=== PATIENT | male | born 1940 | race Caucasian/White ===

== ENCOUNTER 2020-11-26 10:12 | Observation (INO) | payer OTHER, MEDICARE, MEDICAID ==
[~2020-11-26] VITALS: Ht 172.7 cm; Wt 86.7 kg
[2020-11-26 12:46] VITALS: BP 135/75
[2020-11-26 14:43] VITALS: BP 108/65
[2020-11-26] MEDS ORDERED: HYDROcodone/APAP 5/325MG 1 TAB TABLET PO PRN (15:30)
[2020-11-26 16:45] LABS: BASO # 0.1 x10^3/uL (0.0-0.2); BASO % 1 % (0-3); EOS # 0.1 x10^3/uL (0.0-0.7); EOS % 2 % (0-3); HEMATOCRIT 38.2 % (39.0-53.0); HEMOGLOBIN 12.4 g/dL (13.0-17.5); LYMPH # 1.5 x10^3/uL (1.0-4.8); LYMPH % 17 % (24-48); MEAN CORPUSCULAR HEMOGLOBIN 28 pg (25-35); MEAN CORPUSCULAR HGB CONC 33 g/dL (31-37); MEAN CORPUSCULAR VOLUME 85 fL (79-100); MONO # 0.8 x10^3/uL (0.0-1.1); MONO % 10 % (0-9); NEUT # 6.1 x10^3uL (1.8-7.7); NEUT % 71 % (31-73); PLATELET COUNT 171 x10^3/uL (140-400); RED BLOOD COUNT 4.51 x10^6/uL (4.30-5.70); RED CELL DISTRIBUTION WIDTH 17.9 % (11.5-14.5); WHITE BLOOD COUNT 8.6 x10^3/uL (4.0-11.0)
--- NOTE | 2020-11-26 16:47 | EKG ---
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
[2020-11-26 16:58] LABS: ALBUMIN 3.7 g/dL (3.4-5.0); ALBUMIN/GLOBULIN RATIO 1.3 (1.0-1.7); CALCIUM 8.7 mg/dL (8.5-10.1); CREATININE 1.3 mg/dL (0.7-1.3); GFR 52.9; MAGNESIUM 2.3 mg/dL (1.8-2.4); POTASSIUM 3.7 mmol/L (3.5-5.1); TOTAL BILIRUBIN 0.6 mg/dL (0.2-1.0); TOTAL PROTEIN 6.6 g/dL (6.4-8.2)
[2020-11-26] MEDS: metFORMIN 500 MG TABLET PO SCH (17:18)
[2020-11-26] MEDS: CARVEDILOL 6.25 MG TABLET PO SCH (17:18)
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
[2020-11-26 18:13] VITALS: BP 108/65
[2020-11-26] MEDS ORDERED: BUDESONIDE 0.5 MG/2 ML NEBU NEB SCH (20:00)
[2020-11-26] MEDS ORDERED: ATORVASTATIN CALCIUM 20 MG TABLET PO SCH (21:00)
[2020-11-26] MEDS ORDERED: TAMSULOSIN 0.4 MG CAP.ER.24H. PO SCH (21:00)
[2020-11-26] MEDS: buPROPion 75 MG TABLET PO SCH (21:25)
[2020-11-26] MEDS: GABAPENTIN 300 MG CAPSULE. PO SCH (21:26)
[2020-11-26] MEDS: AMOXICILLIN/K CLAV 875/125MG TABLET. PO SCH (21:26)
[2020-11-26] MEDS: WARFARIN 2 MG TABLET. PO SCH ×2 (21:26→21:30)
[2020-11-26 21:55] LABS: COLOR,URINE YELLOW
[2020-11-26 21:56] LABS: BACTERIA,URINE 0 /HPF (0-FEW); BILIRUBIN,URINE NEG (NEG); CLARITY,URINE CLOUDY; GLUCOSE,URINE NEG (NEG); NITRITE,URINE NEG (NEG); SQUAMOUS EPITHELIAL CELL,UR FEW /LPF; UROBILINOGEN,URINE 0.2 mg/dL (0.2 mg/dL)
[2020-11-27] MEDS ORDERED: COLESEVELAM HCL 625 MG PO SCH (08:00)
[2020-11-27] MEDS ORDERED: POTASSIUM CHLORIDE 20 MEQ TABLET.ER. PO SCH (08:00)
[2020-11-27] MEDS: CARVEDILOL 6.25 MG TABLET PO SCH (08:06)
[2020-11-27] MEDS: metFORMIN 500 MG TABLET PO SCH (08:07)
[2020-11-27] MEDS: GABAPENTIN 300 MG CAPSULE. PO SCH ×2 (08:07→12:57)
[2020-11-27] MEDS: AMOXICILLIN/K CLAV 875/125MG TABLET. PO SCH (08:07)
[2020-11-27] MEDS: buPROPion 75 MG TABLET PO SCH (08:08)
[2020-11-27 08:23] VITALS: BP 105/70
[2020-11-27] MEDS ORDERED: NICOTINE 14MG PATCH. TD SCH (09:00)
[2020-11-27] MEDS ORDERED: FUROSEMIDE 40 MG TABLET PO SCH (09:00)
[2020-11-27 10:58] VITALS: BP 108/68
[2020-11-27] MEDS ORDERED: ALBU2.5V8 INH (17:07)
[2020-11-27] MEDS ORDERED: GABA-586 PO (17:07)
[2020-11-27] MEDS ORDERED: COLE625T12 PO (17:07)
[2020-11-27] MEDS ORDERED: CARV6.25 PO (17:07)
[2020-11-27] MEDS ORDERED: LORA-52 PO (17:07)
[2020-11-27] MEDS ORDERED: FURO20TA3 PO (17:07)
[2020-11-27] MEDS ORDERED: ATOR40TA PO (17:07)
[2020-11-27] MEDS ORDERED: HYDR-2155 PO (17:07)
[2020-11-27] MEDS ORDERED: DICL20GE TP (17:07)
[2020-11-27] MEDS ORDERED: MUPI15CR8 TP (17:07)
[2020-11-27] MEDS ORDERED: BUDE10.2 IH (17:07)
[2020-11-27] MEDS ORDERED: POTA20TA4 PO (17:07)
[2020-11-27] MEDS ORDERED: WARF4TAB64 PO (17:07)
[2020-11-27] MEDS ORDERED: BUPR150T21 PO (17:07)
[2020-11-27] MEDS ORDERED: METF-658 PO (17:07)
[2020-11-27] MEDS ORDERED: TAMS0.4C97 PO (17:07)
[2020-11-27] MEDS ORDERED: NYST15PO9 TP (17:07)
[2020-11-27 20:00] LABS: FREE T4 1.07 ng/dL (0.76-1.46); THYROID STIM HORMONE (TSH) 1.217 uIU/mL (0.358-3.740)
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
[2020-11-27] MEDS ORDERED: LACTOBACILLUS RHAMNOSUS GG 1 CAPSULE. PO SCH (21:00)
== END 2020-11-27 13:00 ==
LOC: INTOOBSV 12:20 → 1 SOUTH 12:20
PROVIDERS: ADMIT Internal Medicine; ATTEND Internal Medicine
DX: F01.50 Vascular dementia, unspecified severity, without behavioral disturbance, psychotic disturbance, mood disturbance, and anxiety (principal); Z20.822 Contact with and (suspected) exposure to COVID-19; I10 Essential (primary) hypertension; E11.9 Type 2 diabetes mellitus without complications; J44.9 Chronic obstructive pulmonary disease, unspecified; I25.10 Atherosclerotic heart disease of native coronary artery without angina pectoris; I25.2 Old myocardial infarction; N40.0 Benign prostatic hyperplasia without lower urinary tract symptoms; M10.9 Gout, unspecified; E78.5 Hyperlipidemia, unspecified; Q54.9 Hypospadias, unspecified; Z86.73 Personal history of transient ischemic attack (TIA), and cerebral infarction without residual deficits; Z86.79 Personal history of other diseases of the circulatory system; Z95.1 Presence of aortocoronary bypass graft
CPT/HCPCS: 36415; 80053; 80061; 81001; 82306; 82607; 82947; 83036; 83540; 83550; 83735; 84439; 84443; 84481; 85025; 85379; 85610; 86592; 87086; 93005; G0378; G0379; U0003

== ENCOUNTER 2020-11-27 13:05 | Inpatient (IN) | payer OTHER, MEDICARE, MEDICAID ==
[~2020-11-27] VITALS: Ht 172.7 cm; Wt 87.2 kg
[2020-11-27 14:45] VITALS: BP 129/79
[2020-11-27] MEDS ORDERED: ACETAMINOPHEN 325 MG TABLET PO PRN (16:00)
[2020-11-27] MEDS ORDERED: MAG HYDROX/AL HYDROX/SIMETH 30 ML ORAL.SUSP PO PRN (16:00)
[2020-11-27] MEDS ORDERED: METHYL SALICYLATE/MENTHOL TOPICAL OINTMENT 57GM TUBE. TP PRN (16:00)
[2020-11-27] MEDS ORDERED: MAGNESIUM HYDROXIDE 2,400 MG/30 ML ORAL.SUSP. PO PRN (16:00)
[2020-11-27] MEDS: NICOTINE 14MG PATCH. TD SCH (16:30)
[2020-11-27] MEDS ORDERED: GABA-586 PO (17:07)
[2020-11-27] MEDS ORDERED: LORA-52 PO (17:07)
[2020-11-27] MEDS ORDERED: FURO20TA3 PO (17:07)
[2020-11-27] MEDS ORDERED: BUPR150T21 PO (17:07)
[2020-11-27] MEDS ORDERED: MUPI15CR8 TP (17:07)
[2020-11-27] MEDS ORDERED: ATOR40TA PO (17:07)
[2020-11-27] MEDS ORDERED: CARV6.25 PO (17:07)
[2020-11-27] MEDS ORDERED: NYST15PO9 TP (17:07)
[2020-11-27] MEDS ORDERED: POTA20TA4 PO (17:07)
[2020-11-27] MEDS ORDERED: HYDR-2155 PO (17:07)
[2020-11-27] MEDS ORDERED: ALBU2.5V8 INH (17:07)
[2020-11-27] MEDS ORDERED: WARF4TAB64 PO (17:07)
[2020-11-27] MEDS ORDERED: METF-658 PO (17:07)
[2020-11-27] MEDS ORDERED: BUDE10.2 IH (17:07)
[2020-11-27] MEDS ORDERED: COLE625T12 PO (17:07)
[2020-11-27] MEDS ORDERED: DICL20GE TP (17:07)
[2020-11-27] MEDS ORDERED: TAMS0.4C97 PO (17:07)
[2020-11-27] MEDS ORDERED: ALBUTEROL SULFATE 2.5 MG/3 ML NEBU. INH PRN (19:00)
[2020-11-27] MEDS ORDERED: BUDESONIDE 0.5 MG/2 ML NEBU NEB SCH (20:00)
[2020-11-27] MEDS ORDERED: ALBUTEROL SULFATE 2.5 MG/3 ML NEBU. NEB SCH (20:00)
[2020-11-27] MEDS ORDERED: CARVEDILOL 6.25 MG TABLET PO SCH (21:00)
[2020-11-27] MEDS: MUPIROCIN 2% TOPICAL OINTMENT 22GM TUBE. TP SCH (21:00)
[2020-11-27] MEDS: NYSTATIN TOPICAL POWDER 15GM BOTTLE. TP SCH (21:00)
[2020-11-27] MEDS ORDERED: metFORMIN XR 500 MG TAB.ER.24H PO SCH (21:00)
[2020-11-27] MEDS ORDERED: NON FORMULARY ITEM (Budesonide/Formoterol Fumarate (Symbicort 160-4.5 Mcg Inhaler) 2 PUFF) IH SCH (21:00)
[2020-11-27] MEDS: GABAPENTIN 300 MG CAPSULE. PO SCH (21:30)
[2020-11-27] MEDS: buPROPion 75 MG TABLET PO SCH (21:31)
[2020-11-27] MEDS: COLESEVELAM HCL 625 MG PO SCH (21:36)
[2020-11-27] MEDS: HYDROcodone/APAP 5/325MG 1 TAB TABLET PO PRN (21:36)
[2020-11-27] MEDS: DICLOFENAC SODIUM 1% TOPICAL GEL 100GM TUBE. TP SCH (21:37)
[2020-11-27] MEDS: ALBUTEROL SULFATE 8GM INHALER. INH PRN (21:48)
--- NOTE | 2020-11-27 22:01 | PDOC ---
Exam Note: Hero Note: Please also refer to the separate dictated note~for this date of service dictated separately.~Patient seen individually. Discussed the patient with Nursing staff reviewed the chart.~Reviewed interim history and current functioning. Reviewed vital signs,~Labs/ Radiology~and current medications noted below. Continue current treatment with the changes noted in the dictated addendum note Assessment: Vital Signs/I&O: Vital Signs Date Time Temp Pulse Resp B/P (MAP) Pulse Ox O2 Delivery O2 Flow Rate FiO2 11/27/20 21:36 97 11/27/20 21:30 76 129/79 11/27/20 14:45 97.6 20 Room Air Labs: Laboratory Tests Test 11/27/20 19:20 Glucose (Fingerstick) 178 mg/dL (70-99) H Current Medications: Meds: Current Medications Medications (Trade) Dose Ordered Sig/Payton Route PRN Reason Start Time Stop Time Status Last Admin Dose Admin Bupropion HCl (Wellbutrin) 75 mg BID PO 11/27/20 21:00 11/27/20 21:31 Carvedilol (Coreg) 6.25 mg BID PO 11/27/20 21:00 11/27/20 21:30 Colesevelam HCl (Welchol) 1,250 mg BID PO 11/27/20 21:00 11/27/20 21:36 Diclofenac Sodium (Voltaren) 20 jaswant QID TP 11/27/20 21:00 11/27/20 21:37 Gabapentin (Neurontin) 600 mg QHS PO 11/27/20 21:00 11/27/20 21:30 Acetaminophen/ Hydrocodone Bitart (Lortab 5/325) 1 tab PRN Q6HRS PRN PO PAIN 11/27/20 19:00 11/27/20 21:36 Albuterol Sulfate (Ventolin Hfa Inhaler) 1 puff PRN Q6HRS PRN INH SOA 11/27/20 19:45 11/27/20 21:48 I have reviewed the current psychotropics carefully including drug interactions. Risk benefit ratio favors no change other than as noted in my dictated progress note. Diagnosis: Problems: (1) Dementia DIANE MENDIETA MD Nov 27, 2020 22:01
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
[2020-11-28 06:24] VITALS: BP 114/67
[2020-11-28] MEDS: DICLOFENAC SODIUM 1% TOPICAL GEL 100GM TUBE. TP SCH ×4 (09:00→21:12)
[2020-11-28] MEDS: MUPIROCIN 2% TOPICAL OINTMENT 22GM TUBE. TP SCH ×3 (09:00→21:00)
[2020-11-28] MEDS ORDERED: metFORMIN XR 500 MG TAB.ER.24H PO SCH (09:00)
[2020-11-28] MEDS ORDERED: CARVEDILOL 6.25 MG TABLET PO SCH (09:00)
[2020-11-28] MEDS: NYSTATIN TOPICAL POWDER 15GM BOTTLE. TP SCH ×2 (09:00→21:00)
[2020-11-28] MEDS: NICOTINE 14MG PATCH. TD SCH (09:03)
[2020-11-28] MEDS: COLESEVELAM HCL 625 MG PO SCH ×2 (09:04→21:12)
[2020-11-28] MEDS: FUROSEMIDE 20 MG TABLET PO SCH (09:04)
[2020-11-28] MEDS: POTASSIUM CHLORIDE 20 MEQ TABLET.ER. PO SCH (09:04)
[2020-11-28] MEDS: buPROPion 75 MG TABLET PO SCH (09:06)
[2020-11-28] MEDS: TAMSULOSIN 0.4 MG CAP.ER.24H. PO SCH (09:06)
[2020-11-28] MEDS: CETIRIZINE HCL 10 MG TABLET PO SCH (09:06)
[2020-11-28] MEDS: ATORVASTATIN CALCIUM 20 MG TABLET PO SCH (09:06)
[2020-11-28] MEDS: HYDROcodone/APAP 5/325MG 1 TAB TABLET PO PRN ×2 (09:25→22:28)
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
[2020-11-28 16:04] VITALS: BP 123/75
[2020-11-28] MEDS: WARFARIN 4 MG TABLET. PO SCH (16:56)
[2020-11-28] MEDS: metFORMIN XR 500 MG TAB.ER.24H PO SCH (16:56)
[2020-11-28] MEDS: CARVEDILOL 6.25 MG TABLET PO SCH (16:57)
[2020-11-28] MEDS: GABAPENTIN 300 MG CAPSULE. PO SCH (21:12)
[2020-11-28] MEDS: DIVALPROEX ER 500 MG TAB.ER.24H PO SCH (21:12)
--- NOTE | 2020-11-28 22:14 | PDOC ---
Exam Note: Hero Note: Please also refer to the separate dictated note~for this date of service dictated separately.~Patient seen individually. Discussed the patient with Nursing staff reviewed the chart.~Reviewed interim history and current functioning. Reviewed vital signs,~Labs/ Radiology~and current medications noted below. Continue current treatment with the changes noted in the dictated addendum note Assessment: Vital Signs/I&O: Vital Signs Date Time Temp Pulse Resp B/P (MAP) Pulse Ox O2 Delivery O2 Flow Rate FiO2 11/28/20 16:57 63 123/75 11/28/20 16:04 97.4 16 98 Room Air I & O 11/27/20 11/27/20 11/28/20 15:00 23:00 07:00 Intake Total 600 ml Balance 600 ml Labs: Laboratory Tests Test 11/28/20 06:52 11/28/20 07:20 Prothrombin Time 10.5 SEC (9.4-11.4) Prothrombin Time INR 1.0 (0.9-1.1) Glucose (Fingerstick) 157 mg/dL (70-99) H Current Medications: Meds: Current Medications Medications (Trade) Dose Ordered Sig/Payton Route PRN Reason Start Time Stop Time Status Last Admin Dose Admin Furosemide (Lasix) 20 mg DAILY PO 11/28/20 09:00 11/28/20 09:04 Potassium Chloride (Klor-Con) 20 meq DAILY PO 11/28/20 09:00 11/28/20 09:04 Tamsulosin HCl (Flomax) 0.4 mg DAILY PO 11/28/20 09:00 11/28/20 09:06 Warfarin Sodium (Coumadin) 4 mg DAILY16 PO 11/28/20 16:00 11/28/20 16:56 Atorvastatin Calcium (Lipitor) 40 mg DAILY PO 11/28/20 09:00 11/28/20 09:06 Cetirizine HCl (ZyrTEC) 10 mg DAILY PO 11/28/20 09:00 11/28/20 09:06 Metformin HCl (Glucophage Xr) 500 mg BID PO 11/28/20 09:00 11/28/20 10:51 DC 11/28/20 09:06 Carvedilol (Coreg) 6.25 mg BID PO 11/28/20 09:00 11/28/20 10:51 DC 11/28/20 09:06 Carvedilol (Coreg) 6.25 mg 0800,1700 PO 11/28/20 17:00 11/28/20 16:57 Metformin HCl (Glucophage Xr) 500 mg 0800,1700 PO 11/28/20 17:00 11/28/20 16:56 Divalproex Sodium (Depakote Er) 500 mg QHS PO 11/28/20 21:00 11/28/20 21:12 I have reviewed the current psychotropics carefully including drug interactions. Risk benefit ratio favors no change other than as noted in my dictated progress note. Diagnosis: Problems: (1) Bipolar disorder, unspecified (2) Impulse control disorder, unspecified (3) Anxiety disorder, unspecified DIANE MENDIETA MD Nov 28, 2020 22:14
[2020-11-28 22:23] LABS: ALBUMIN 3.3 g/dL (3.4-5.0); ALBUMIN/GLOBULIN RATIO 1.1 (1.0-1.7); CREATININE 0.9 mg/dL (0.7-1.3); GFR 80.8; POTASSIUM 3.8 mmol/L (3.5-5.1); TOTAL BILIRUBIN 0.3 mg/dL (0.2-1.0); TOTAL PROTEIN 6.2 g/dL (6.4-8.2)
[2020-11-29 06:25] VITALS: BP 112/71
[2020-11-29] MEDS: NICOTINE 14MG PATCH. TD SCH (08:22)
[2020-11-29] MEDS: CARVEDILOL 6.25 MG TABLET PO SCH ×2 (08:23→17:00)
[2020-11-29] MEDS: TAMSULOSIN 0.4 MG CAP.ER.24H. PO SCH (08:23)
[2020-11-29] MEDS: metFORMIN XR 500 MG TAB.ER.24H PO SCH ×2 (08:24→17:00)
[2020-11-29] MEDS: CETIRIZINE HCL 10 MG TABLET PO SCH (08:24)
[2020-11-29] MEDS: ATORVASTATIN CALCIUM 20 MG TABLET PO SCH (08:24)
[2020-11-29] MEDS: POTASSIUM CHLORIDE 20 MEQ TABLET.ER. PO SCH (08:24)
[2020-11-29] MEDS: FUROSEMIDE 20 MG TABLET PO SCH (08:24)
[2020-11-29] MEDS: SERTRALINE 50 MG TABLET. PO SCH (08:28)
[2020-11-29] MEDS: COLESEVELAM HCL 625 MG PO SCH ×2 (08:28→20:36)
[2020-11-29] MEDS: medroxyPROGESTERone 5 MG TABLET PO SCH (08:29)
[2020-11-29] MEDS: NYSTATIN TOPICAL POWDER 15GM BOTTLE. TP SCH ×2 (08:48→20:37)
[2020-11-29] MEDS: DICLOFENAC SODIUM 1% TOPICAL GEL 100GM TUBE. TP SCH ×4 (09:00→20:37)
[2020-11-29] MEDS: MUPIROCIN 2% TOPICAL OINTMENT 22GM TUBE. TP SCH ×3 (09:00→20:37)
[2020-11-29] MEDS: WARFARIN 4 MG TABLET. PO SCH (15:10)
[2020-11-29] MEDS ORDERED: CALCIUM CARBONATE 500 MG TAB.CHEW PO PRN (15:15)
[2020-11-29 15:23] VITALS: BP 125/85
[2020-11-29] MEDS: DIVALPROEX ER 500 MG TAB.ER.24H PO SCH (20:36)
[2020-11-29] MEDS: HYDROcodone/APAP 5/325MG 1 TAB TABLET PO PRN (20:36)
[2020-11-29] MEDS: rOPINIRole 0.25 MG TABLET. PO SCH (20:36)
[2020-11-29] MEDS: GABAPENTIN 300 MG CAPSULE. PO SCH (20:36)
[2020-11-29] MEDS: ALBUTEROL SULFATE 8GM INHALER. INH PRN (21:09)
--- NOTE | 2020-11-29 22:28 | PDOC ---
Exam Note: Hero Note: Please also refer to the separate dictated note~for this date of service dictated separately. Discussed the patient with Nursing staff reviewed the chart.~Reviewed interim history and current functioning. Reviewed vital signs,~Labs/ Radiology~and current medications noted below. Continue current treatment with the changes noted in the dictated addendum note Assessment: Vital Signs/I&O: Vital Signs Date Time Temp Pulse Resp B/P (MAP) Pulse Ox O2 Delivery O2 Flow Rate FiO2 11/29/20 21:06 98 11/29/20 17:00 74 125/85 11/29/20 15:23 97.4 18 Room Air I & O 11/28/20 11/28/20 11/29/20 15:00 23:00 07:00 Intake Total 840 ml 720 ml Balance 840 ml 720 ml Labs: Laboratory Tests Test 11/29/20 07:00 11/29/20 08:06 Prothrombin Time 10.7 SEC (9.4-11.4) Prothrombin Time INR 1.0 (0.9-1.1) Glucose (Fingerstick) 124 mg/dL (70-99) H Current Medications: Meds: Laboratory Tests Test 11/29/20 07:00 11/29/20 08:06 Prothrombin Time 10.7 SEC Prothromb Time International Ratio 1.0 Glucose (Fingerstick) 124 mg/dL Current Medications Medications (Trade) Dose Ordered Sig/Payton Route PRN Reason Start Time Stop Time Status Last Admin Dose Admin Acetaminophen (Tylenol) 650 mg PRN Q6HRS PRN PO MILD PAIN / TEMP > 100.3'F 11/27/20 16:00 Multi-Ingredient Ointment (Analgesic [place]) 1 jaswant PRN QID PRN TP MUSCLE PAIN 11/27/20 16:00 Al Hydroxide/Mg Hydroxide (Mylanta Plus Xs) 15 ml PRN AFTMEALHC PRN PO DYSPEPSIA 11/27/20 16:00 11/29/20 15:10 Magnesium Hydroxide (Milk Of Magnesia) 2,400 mg PRN QHS PRN PO CONSTIPATION 11/27/20 16:00 Nicotine (Nicoderm Cq 14mg Patch) 1 patch DAILY TD 11/27/20 16:30 11/29/20 08:22 Albuterol Sulfate (Ventolin) 2.5 mg PRN Q4HRS PRN INH SHORTNESS OF BREATH 11/27/20 19:00 11/27/20 19:40 DC Bupropion HCl (Wellbutrin) 75 mg BID PO 11/27/20 21:00 11/28/20 13:37 DC 11/28/20 09:06 Carvedilol (Coreg) 6.25 mg BID PO 11/27/20 21:00 11/28/20 08:04 DC 11/27/20 21:30 Colesevelam HCl (Welchol) 1,250 mg BID PO 11/27/20 21:00 11/29/20 20:36 Diclofenac Sodium (Voltaren) 20 jaswant QID TP 11/27/20 21:00 11/29/20 20:37 Furosemide (Lasix) 20 mg DAILY PO 11/28/20 09:00 11/29/20 08:24 Gabapentin (Neurontin) 600 mg QHS PO 11/27/20 21:00 11/29/20 20:36 Acetaminophen/ Hydrocodone Bitart (Lortab 5/325) 1 tab PRN Q6HRS PRN PO PAIN 11/27/20 19:00 11/29/20 20:36 Metformin HCl (Glucophage Xr) 500 mg BID PO 11/27/20 21:00 11/28/20 08:01 DC Nystatin (Nystop) 15 jaswant BID TP 11/27/20 21:00 11/29/20 08:48 Potassium Chloride (Klor-Con) 20 meq DAILY PO 11/28/20 09:00 11/29/20 08:24 Tamsulosin HCl (Flomax) 0.4 mg DAILY PO 11/28/20 09:00 11/29/20 08:23 Warfarin Sodium (Coumadin) 4 mg DAILY16 PO 11/28/20 16:00 11/29/20 15:10 Atorvastatin Calcium (Lipitor) 40 mg DAILY PO 11/28/20 09:00 11/29/20 08:24 Non-Formulary Medication (Budesonide/ Formoterol Fumarate (Symbicort 160-4.5 Mcg Inhaler)) 2 puff BID IH 11/27/20 21:00 11/27/20 19:39 DC Cetirizine HCl (ZyrTEC) 10 mg DAILY PO 11/28/20 09:00 11/29/20 08:24 Mupirocin (Bactroban) 1 jaswant TID TP 11/27/20 21:00 11/28/20 09:00 Albuterol Sulfate (Ventolin) 2.5 mg RTQID NEB 11/27/20 20:00 11/27/20 19:39 DC Budesonide (Pulmicort) 0.5 mg RTBID NEB 11/27/20 20:00 11/27/20 19:39 DC Albuterol Sulfate (Ventolin Hfa Inhaler) 1 puff PRN Q6HRS PRN INH SOA 11/27/20 19:45 11/29/20 21:09 Metformin HCl (Glucophage Xr) 500 mg BID PO 11/28/20 09:00 11/28/20 10:51 DC 11/28/20 09:06 Carvedilol (Coreg) 6.25 mg BID PO 11/28/20 09:00 11/28/20 10:51 DC 11/28/20 09:06 Carvedilol (Coreg) 6.25 mg 0800,1700 PO 11/28/20 17:00 11/29/20 17:00 Metformin HCl (Glucophage Xr) 500 mg 0800,1700 PO 11/28/20 17:00 11/29/20 17:00 Sertraline HCl (Zoloft) 50 mg DAILY PO 11/29/20 09:00 11/29/20 08:28 Divalproex Sodium (Depakote Er) 500 mg QHS PO 11/28/20 21:00 11/29/20 20:36 Medroxyprogesterone Acetate (Provera) 5 mg DAILY PO 11/29/20 09:00 11/29/20 08:29 Warfarin Sodium (Coumadin Per Pharmacy) 1 each PRN DAILY PRN MC SEE COMMENTS 11/29/20 13:45 Calcium Carbonate/ Glycine (Tums) 500 mg PRN AFTMEALHC PRN PO INDIGESTION 11/29/20 15:15 11/29/20 18:00 Pantoprazole Sodium (Protonix) 40 mg DAILYAC PO 11/30/20 06:00 Ropinirole HCl (Requip) 0.25 mg HS PO 11/29/20 21:00 11/29/20 20:36 Current Medications Medications (Trade) Dose Ordered Sig/Payton Route PRN Reason Start Time Stop Time Status Last Admin Dose Admin Sertraline HCl (Zoloft) 50 mg DAILY PO 11/29/20 09:00 11/29/20 08:28 Medroxyprogesterone Acetate (Provera) 5 mg DAILY PO 11/29/20 09:00 11/29/20 08:29 Calcium Carbonate/ Glycine (Tums) 500 mg PRN AFTMEALHC PRN PO INDIGESTION 11/29/20 15:15 11/29/20 18:00 Ropinirole HCl (Requip) 0.25 mg HS PO 11/29/20 21:00 11/29/20 20:36 I have reviewed the current psychotropics carefully including drug interactions. Risk benefit ratio favors no change other than as noted in my dictated progress note. 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
[2020-11-30] MEDS ORDERED: PANTOPRAZOLE 40 MG TABLET. PO SCH (06:00)
[2020-11-30 06:07] VITALS: BP 100/56
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
[2020-11-30] MEDS: COLESEVELAM HCL 625 MG PO SCH ×2 (08:25→20:45)
[2020-11-30] MEDS: metFORMIN XR 500 MG TAB.ER.24H PO SCH ×2 (08:25→17:09)
[2020-11-30] MEDS: CARVEDILOL 6.25 MG TABLET PO SCH ×2 (08:25→17:09)
[2020-11-30] MEDS: PANTOPRAZOLE 40 MG TABLET. PO SCH (08:25)
[2020-11-30] MEDS: SERTRALINE 50 MG TABLET. PO SCH (08:26)
[2020-11-30] MEDS: CETIRIZINE HCL 10 MG TABLET PO SCH (08:26)
[2020-11-30] MEDS: medroxyPROGESTERone 5 MG TABLET PO SCH (08:26)
[2020-11-30] MEDS: ATORVASTATIN CALCIUM 20 MG TABLET PO SCH (08:26)
[2020-11-30] MEDS: POTASSIUM CHLORIDE 20 MEQ TABLET.ER. PO SCH (08:26)
[2020-11-30] MEDS: FUROSEMIDE 20 MG TABLET PO SCH (08:26)
[2020-11-30] MEDS: TAMSULOSIN 0.4 MG CAP.ER.24H. PO SCH (08:26)
[2020-11-30] MEDS: NICOTINE 14MG PATCH. TD SCH (08:27)
[2020-11-30] MEDS: NYSTATIN TOPICAL POWDER 15GM BOTTLE. TP SCH ×2 (09:00→20:58)
[2020-11-30] MEDS: MUPIROCIN 2% TOPICAL OINTMENT 22GM TUBE. TP SCH ×3 (09:28→20:58)
[2020-11-30] MEDS: DICLOFENAC SODIUM 1% TOPICAL GEL 100GM TUBE. TP SCH ×4 (09:29→20:58)
[2020-11-30 15:44] VITALS: BP 128/76
[2020-11-30] MEDS: WARFARIN 4 MG TABLET. PO SCH (17:09)
[2020-11-30] MEDS: HYDROcodone/APAP 5/325MG 1 TAB TABLET PO PRN (20:45)
[2020-11-30] MEDS: GABAPENTIN 300 MG CAPSULE. PO SCH (20:45)
[2020-11-30] MEDS: rOPINIRole 0.25 MG TABLET. PO SCH (20:45)
[2020-11-30] MEDS: DIVALPROEX ER 500 MG TAB.ER.24H PO SCH (20:45)
[2020-12-01 06:17] VITALS: BP 116/72
[2020-12-01] MEDS: medroxyPROGESTERone 5 MG TABLET PO SCH (08:00)
[2020-12-01] MEDS: NICOTINE 14MG PATCH. TD SCH (08:00)
[2020-12-01] MEDS: COLESEVELAM HCL 625 MG PO SCH ×2 (08:00→20:07)
[2020-12-01] MEDS: ATORVASTATIN CALCIUM 20 MG TABLET PO SCH (08:00)
[2020-12-01] MEDS: POTASSIUM CHLORIDE 20 MEQ TABLET.ER. PO SCH (08:00)
[2020-12-01] MEDS: CETIRIZINE HCL 10 MG TABLET PO SCH (08:00)
[2020-12-01] MEDS: PANTOPRAZOLE 40 MG TABLET. PO SCH (08:01)
[2020-12-01] MEDS: FUROSEMIDE 20 MG TABLET PO SCH (08:01)
[2020-12-01] MEDS: SERTRALINE 50 MG TABLET. PO SCH (08:01)
[2020-12-01] MEDS: CARVEDILOL 6.25 MG TABLET PO SCH ×2 (08:01→17:23)
[2020-12-01] MEDS: TAMSULOSIN 0.4 MG CAP.ER.24H. PO SCH (08:01)
[2020-12-01] MEDS: metFORMIN XR 500 MG TAB.ER.24H PO SCH ×2 (08:01→17:23)
[2020-12-01 08:16] LABS: BASO % 1 % (0-3); EOS # 0.1 x10^3/uL (0.0-0.7); EOS % 2 % (0-3); HEMATOCRIT 35.5 % (39.0-53.0); HEMOGLOBIN 11.3 g/dL (13.0-17.5); LYMPH # 1.4 x10^3/uL (1.0-4.8); LYMPH % 24 % (24-48); MEAN CORPUSCULAR HEMOGLOBIN 27 pg (25-35); MEAN CORPUSCULAR HGB CONC 32 g/dL (31-37); MEAN CORPUSCULAR VOLUME 84 fL (79-100); MONO # 0.7 x10^3/uL (0.0-1.1); MONO % 12 % (0-9); NEUT # 3.7 x10^3uL (1.8-7.7); NEUT % 62 % (31-73); PLATELET COUNT 140 x10^3/uL (140-400); RED BLOOD COUNT 4.21 x10^6/uL (4.30-5.70); RED CELL DISTRIBUTION WIDTH 17.6 % (11.5-14.5)
[2020-12-01 08:49] LABS: VAL ACID 36 mcg/mL (50-100)
[2020-12-01] MEDS: MUPIROCIN 2% TOPICAL OINTMENT 22GM TUBE. TP SCH ×3 (09:22→20:06)
[2020-12-01] MEDS: DICLOFENAC SODIUM 1% TOPICAL GEL 100GM TUBE. TP SCH ×4 (09:22→20:06)
[2020-12-01] MEDS: NYSTATIN TOPICAL POWDER 15GM BOTTLE. TP SCH ×2 (09:22→20:07)
--- NOTE | 2020-12-01 09:45 | PDOC ---
Exam Note: Hero Note: Late entry for 11/30/2020. Please also refer to the separate dictated note~for this date of service dictated separately.~Patient seen individually. Discussed the patient with Nursing staff reviewed the chart.~Reviewed interim history and current functioning. Reviewed vital signs,~Labs/ Radiology~and current medic ations noted below. Continue current treatment with the changes noted in the dictated addendum note Assessment: Vital Signs/I&O: Vital Signs Date Time Temp Pulse Resp B/P (MAP) Pulse Ox O2 Delivery O2 Flow Rate FiO2 12/01/20 08:01 84 116/72 12/01/20 06:17 97.0 20 96 Room Air 11/30/20 06:07 2.0 I & O 11/30/20 11/30/20 12/01/20 15:00 23:00 07:00 Intake Total 1320 ml 120 ml Balance 1320 ml 120 ml Labs: Laboratory Tests Test 12/01/20 07:23 12/01/20 07:54 Glucose (Fingerstick) 123 mg/dL (70-99) H White Blood Count 6.0 x10^3/uL (4.0-11.0) Red Blood Count 4.21 x10^6/uL (4.30-5.70) L Hemoglobin 11.3 g/dL (13.0-17.5) L Hematocrit 35.5 % (39.0-53.0) L Mean Corpuscular Volume 84 fL (79-100) Mean Corpuscular Hemoglobin 27 pg (25-35) Mean Corpuscular Hemoglobin Concent 32 g/dL (31-37) Red Cell Distribution Width 17.6 % (11.5-14.5) H Platelet Count 140 x10^3/uL (140-400) Neutrophils (%) (Auto) 62 % (31-73) Lymphocytes (%) (Auto) 24 % (24-48) Monocytes (%) (Auto) 12 % (0-9) H Eosinophils (%) (Auto) 2 % (0-3) Basophils (%) (Auto) 1 % (0-3) Neutrophils # (Auto) 3.7 x10^3uL (1.8-7.7) Lymphocytes # (Auto) 1.4 x10^3/uL (1.0-4.8) Monocytes # (Auto) 0.7 x10^3/uL (0.0-1.1) Eosinophils # (Auto) 0.1 x10^3/uL (0.0-0.7) Basophils # (Auto) 0.0 x10^3/uL (0.0-0.2) Prothrombin Time 16.4 SEC (9.4-11.4) H Prothrombin Time INR 1.6 (0.9-1.1) H Valproic Acid Level 36 mcg/mL (50-100) L Valproic Acid Last Dose Date 11/30/20 Valproic Acid Last Dose Time 2100 Current Medications: Meds: Laboratory Tests Test 12/01/20 07:23 12/01/20 07:54 Glucose (Fingerstick) 123 mg/dL White Blood Count 6.0 x10^3/uL Red Blood Count 4.21 x10^6/uL Hemoglobin 11.3 g/dL Hematocrit 35.5 % Mean Corpuscular Volume 84 fL Mean Corpuscular Hemoglobin 27 pg Mean Corpuscular Hemoglobin Concent 32 g/dL Red Cell Distribution Width 17.6 % Platelet Count 140 x10^3/uL Neutrophils (%) (Auto) 62 % Lymphocytes (%) (Auto) 24 % Monocytes (%) (Auto) 12 % Eosinophils (%) (Auto) 2 % Basophils (%) (Auto) 1 % Neutrophils # (Auto) 3.7 x10^3uL Lymphocytes # (Auto) 1.4 x10^3/uL Monocytes # (Auto) 0.7 x10^3/uL Eosinophils # (Auto) 0.1 x10^3/uL Basophils # (Auto) 0.0 x10^3/uL Prothrombin Time 16.4 SEC Prothromb Time International Ratio 1.6 Valproic Acid (Depakene) Level 36 mcg/mL Valproic Acid Last Dose Date 11/30/20 Valproic Acid Last Dose Time 2100 Current Medications Medications (Trade) Dose Ordered Sig/Payton Route PRN Reason Start Time Stop Time Status Last Admin Dose Admin Acetaminophen (Tylenol) 650 mg PRN Q6HRS PRN PO MILD PAIN / TEMP > 100.3'F 11/27/20 16:00 Multi-Ingredient Ointment (Analgesic [place]) 1 jaswant PRN QID PRN TP MUSCLE PAIN 11/27/20 16:00 Al Hydroxide/Mg Hydroxide (Mylanta Plus Xs) 15 ml PRN AFTMEALHC PRN PO DYSPEPSIA 11/27/20 16:00 11/29/20 15:10 Magnesium Hydroxide (Milk Of Magnesia) 2,400 mg PRN QHS PRN PO CONSTIPATION 11/27/20 16:00 Nicotine (Nicoderm Cq 14mg Patch) 1 patch DAILY TD 11/27/20 16:30 12/01/20 08:00 Albuterol Sulfate (Ventolin) 2.5 mg PRN Q4HRS PRN INH SHORTNESS OF BREATH 11/27/20 19:00 11/27/20 19:40 DC Bupropion HCl (Wellbutrin) 75 mg BID PO 11/27/20 21:00 11/28/20 13:37 DC 11/28/20 09:06 Carvedilol (Coreg) 6.25 mg BID PO 11/27/20 21:00 11/28/20 08:04 DC 11/27/20 21:30 Colesevelam HCl (Welchol) 1,250 mg BID PO 11/27/20 21:00 12/01/20 08:00 Diclofenac Sodium (Voltaren) 20 jaswant QID TP 11/27/20 21:00 11/30/20 13:35 DC 11/30/20 09:29 Furosemide (Lasix) 20 mg DAILY PO 11/28/20 09:00 12/01/20 08:01 Gabapentin (Neurontin) 600 mg QHS PO 11/27/20 21:00 11/30/20 20:45 Acetaminophen/ Hydrocodone Bitart (Lortab 5/325) 1 tab PRN Q6HRS PRN PO PAIN 11/27/20 19:00 11/30/20 20:45 Metformin HCl (Glucophage Xr) 500 mg BID PO 11/27/20 21:00 11/28/20 08:01 DC Nystatin (Nystop) 15 jaswant BID TP 11/27/20 21:00 12/01/20 09:22 Potassium Chloride (Klor-Con) 20 meq DAILY PO 11/28/20 09:00 12/01/20 08:00 Tamsulosin HCl (Flomax) 0.4 mg DAILY PO 11/28/20 09:00 12/01/20 08:01 Warfarin Sodium (Coumadin) 4 mg DAILY16 PO 11/28/20 16:00 11/30/20 17:09 Atorvastatin Calcium (Lipitor) 40 mg DAILY PO 11/28/20 09:00 12/01/20 08:00 Non-Formulary Medication (Budesonide/ Formoterol Fumarate (Symbicort 160-4.5 Mcg Inhaler)) 2 puff BID IH 11/27/20 21:00 11/27/20 19:39 DC Cetirizine HCl (ZyrTEC) 10 mg DAILY PO 11/28/20 09:00 12/01/20 08:00 Mupirocin (Bactroban) 1 jaswant TID TP 11/27/20 21:00 12/01/20 09:22 Albuterol Sulfate (Ventolin) 2.5 mg RTQID NEB 11/27/20 20:00 11/27/20 19:39 DC Budesonide (Pulmicort) 0.5 mg RTBID NEB 11/27/20 20:00 11/27/20 19:39 DC Albuterol Sulfate (Ventolin Hfa Inhaler) 1 puff PRN Q6HRS PRN INH SOA 11/27/20 19:45 11/29/20 21:09 Metformin HCl (Glucophage Xr) 500 mg BID PO 11/28/20 09:00 11/28/20 10:51 DC 11/28/20 09:06 Carvedilol (Coreg) 6.25 mg BID PO 11/28/20 09:00 11/28/20 10:51 DC 11/28/20 09:06 Carvedilol (Coreg) 6.25 mg 0800,1700 PO 11/28/20 17:00 12/01/20 08:01 Metformin HCl (Glucophage Xr) 500 mg 0800,1700 PO 11/28/20 17:00 12/01/20 08:01 Sertraline HCl (Zoloft) 50 mg DAILY PO 11/29/20 09:00 12/01/20 08:01 Divalproex Sodium (Depakote Er) 500 mg QHS PO 11/28/20 21:00 11/30/20 20:45 Medroxyprogesterone Acetate (Provera) 5 mg DAILY PO 11/29/20 09:00 12/01/20 08:00 Warfarin Sodium (Coumadin Per Pharmacy) 1 each PRN DAILY PRN MC SEE COMMENTS 11/29/20 13:45 Calcium Carbonate/ Glycine (Tums) 500 mg PRN AFTMEALHC PRN PO INDIGESTION 11/29/20 15:15 11/29/20 18:00 Pantoprazole Sodium (Protonix) 40 mg DAILYAC PO 11/30/20 06:00 11/30/20 06:15 DC Ropinirole HCl (Requip) 0.25 mg HS PO 11/29/20 21:00 11/30/20 20:45 Pantoprazole Sodium (Protonix) 40 mg DAILYWBKFT PO 11/30/20 08:00 12/01/20 08:01 Diclofenac Sodium (Voltaren) 2 jaswant QID TP 11/30/20 13:45 12/01/20 09:22 Current Medications Medications (Trade) Dose Ordered Sig/Payton Route PRN Reason Start Time Stop Time Status Last Admin Dose Admin Diclofenac Sodium (Voltaren) 2 jaswant QID TP 11/30/20 13:45 12/01/20 09:22 I have reviewed the current psychotropics carefully including drug interactions. Risk benefit ratio favors no change other than as noted in my dictated progress note. 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
[2020-12-01 15:43] VITALS: BP 119/94
[2020-12-01] MEDS: DIVALPROEX ER 500 MG TAB.ER.24H PO SCH (20:07)
[2020-12-01] MEDS: rOPINIRole 0.25 MG TABLET. PO SCH (20:07)
[2020-12-01] MEDS: GABAPENTIN 300 MG CAPSULE. PO SCH (20:08)
[2020-12-01] MEDS: ALBUTEROL SULFATE 8GM INHALER. INH PRN (20:23)
--- NOTE | 2020-12-01 22:08 | PDOC ---
Exam Note: Hero Note: Please also refer to the separate dictated note~for this date of service dictated separately.~Patient seen individually. Discussed the patient with Nursing staff reviewed the chart.~Reviewed interim history and current functioning. Reviewed vital signs,~Labs/ Radiology~and current medications noted below. Continue current treatment with the changes noted in the dictated addendum note Assessment: Vital Signs/I&O: Vital Signs Date Time Temp Pulse Resp B/P (MAP) Pulse Ox O2 Delivery O2 Flow Rate FiO2 12/01/20 17:23 71 119/94 12/01/20 15:43 97.3 16 98 12/01/20 06:17 Room Air 11/30/20 06:07 2.0 I & O 11/30/20 11/30/20 12/01/20 15:00 23:00 07:00 Intake Total 1320 ml 120 ml Balance 1320 ml 120 ml Labs: Laboratory Tests Test 12/01/20 07:23 12/01/20 07:54 Glucose (Fingerstick) 123 mg/dL (70-99) H White Blood Count 6.0 x10^3/uL (4.0-11.0) Red Blood Count 4.21 x10^6/uL (4.30-5.70) L Hemoglobin 11.3 g/dL (13.0-17.5) L Hematocrit 35.5 % (39.0-53.0) L Mean Corpuscular Volume 84 fL (79-100) Mean Corpuscular Hemoglobin 27 pg (25-35) Mean Corpuscular Hemoglobin Concent 32 g/dL (31-37) Red Cell Distribution Width 17.6 % (11.5-14.5) H Platelet Count 140 x10^3/uL (140-400) Neutrophils (%) (Auto) 62 % (31-73) Lymphocytes (%) (Auto) 24 % (24-48) Monocytes (%) (Auto) 12 % (0-9) H Eosinophils (%) (Auto) 2 % (0-3) Basophils (%) (Auto) 1 % (0-3) Neutrophils # (Auto) 3.7 x10^3uL (1.8-7.7) Lymphocytes # (Auto) 1.4 x10^3/uL (1.0-4.8) Monocytes # (Auto) 0.7 x10^3/uL (0.0-1.1) Eosinophils # (Auto) 0.1 x10^3/uL (0.0-0.7) Basophils # (Auto) 0.0 x10^3/uL (0.0-0.2) Prothrombin Time 16.4 SEC (9.4-11.4) H Prothrombin Time INR 1.6 (0.9-1.1) H Valproic Acid Level 36 mcg/mL (50-100) L Valproic Acid Last Dose Date 11/30/20 Valproic Acid Last Dose Time 2100 Current Medications: Meds: Laboratory Tests Test 12/01/20 07:23 12/01/20 07:54 Glucose (Fingerstick) 123 mg/dL White Blood Count 6.0 x10^3/uL Red Blood Count 4.21 x10^6/uL Hemoglobin 11.3 g/dL Hematocrit 35.5 % Mean Corpuscular Volume 84 fL Mean Corpuscular Hemoglobin 27 pg Mean Corpuscular Hemoglobin Concent 32 g/dL Red Cell Distribution Width 17.6 % Platelet Count 140 x10^3/uL Neutrophils (%) (Auto) 62 % Lymphocytes (%) (Auto) 24 % Monocytes (%) (Auto) 12 % Eosinophils (%) (Auto) 2 % Basophils (%) (Auto) 1 % Neutrophils # (Auto) 3.7 x10^3uL Lymphocytes # (Auto) 1.4 x10^3/uL Monocytes # (Auto) 0.7 x10^3/uL Eosinophils # (Auto) 0.1 x10^3/uL Basophils # (Auto) 0.0 x10^3/uL Prothrombin Time 16.4 SEC Prothromb Time International Ratio 1.6 Valproic Acid (Depakene) Level 36 mcg/mL Valproic Acid Last Dose Date 11/30/20 Valproic Acid Last Dose Time 2100 Current Medications Medications (Trade) Dose Ordered Sig/Payton Route PRN Reason Start Time Stop Time Status Last Admin Dose Admin Acetaminophen (Tylenol) 650 mg PRN Q6HRS PRN PO MILD PAIN / TEMP > 100.3'F 11/27/20 16:00 Multi-Ingredient Ointment (Analgesic [place]) 1 jaswant PRN QID PRN TP MUSCLE PAIN 11/27/20 16:00 Al Hydroxide/Mg Hydroxide (Mylanta Plus Xs) 15 ml PRN AFTMEALHC PRN PO DYSPEPSIA 11/27/20 16:00 11/29/20 15:10 Magnesium Hydroxide (Milk Of Magnesia) 2,400 mg PRN QHS PRN PO CONSTIPATION 11/27/20 16:00 Nicotine (Nicoderm Cq 14mg Patch) 1 patch DAILY TD 11/27/20 16:30 12/01/20 08:00 Albuterol Sulfate (Ventolin) 2.5 mg PRN Q4HRS PRN INH SHORTNESS OF BREATH 11/27/20 19:00 11/27/20 19:40 DC Bupropion HCl (Wellbutrin) 75 mg BID PO 11/27/20 21:00 11/28/20 13:37 DC 11/28/20 09:06 Carvedilol (Coreg) 6.25 mg BID PO 11/27/20 21:00 11/28/20 08:04 DC 11/27/20 21:30 Colesevelam HCl (Welchol) 1,250 mg BID PO 11/27/20 21:00 12/01/20 20:07 Diclofenac Sodium (Voltaren) 20 jaswant QID TP 11/27/20 21:00 11/30/20 13:35 DC 11/30/20 09:29 Furosemide (Lasix) 20 mg DAILY PO 11/28/20 09:00 12/01/20 08:01 Gabapentin (Neurontin) 600 mg QHS PO 11/27/20 21:00 12/01/20 20:08 Acetaminophen/ Hydrocodone Bitart (Lortab 5/325) 1 tab PRN Q6HRS PRN PO PAIN 11/27/20 19:00 11/30/20 20:45 Metformin HCl (Glucophage Xr) 500 mg BID PO 11/27/20 21:00 11/28/20 08:01 DC Nystatin (Nystop) 15 jaswant BID TP 11/27/20 21:00 12/01/20 10:34 DC 12/01/20 09:22 Potassium Chloride (Klor-Con) 20 meq DAILY PO 11/28/20 09:00 12/01/20 08:00 Tamsulosin HCl (Flomax) 0.4 mg DAILY PO 11/28/20 09:00 12/01/20 08:01 Warfarin Sodium (Coumadin) 4 mg DAILY16 PO 11/28/20 16:00 12/01/20 10:34 DC 11/30/20 17:09 Atorvastatin Calcium (Lipitor) 40 mg DAILY PO 11/28/20 09:00 12/01/20 08:00 Non-Formulary Medication (Budesonide/ Formoterol Fumarate (Symbicort 160-4.5 Mcg Inhaler)) 2 puff BID IH 11/27/20 21:00 11/27/20 19:39 DC Cetirizine HCl (ZyrTEC) 10 mg DAILY PO 11/28/20 09:00 12/01/20 08:00 Mupirocin (Bactroban) 1 jaswant TID TP 11/27/20 21:00 12/01/20 20:06 Albuterol Sulfate (Ventolin) 2.5 mg RTQID NEB 11/27/20 20:00 11/27/20 19:39 DC Budesonide (Pulmicort) 0.5 mg RTBID NEB 11/27/20 20:00 11/27/20 19:39 DC Albuterol Sulfate (Ventolin Hfa Inhaler) 1 puff PRN Q6HRS PRN INH SOA 11/27/20 19:45 12/01/20 20:23 Metformin HCl (Glucophage Xr) 500 mg BID PO 11/28/20 09:00 11/28/20 10:51 DC 11/28/20 09:06 Carvedilol (Coreg) 6.25 mg BID PO 11/28/20 09:00 11/28/20 10:51 DC 11/28/20 09:06 Carvedilol (Coreg) 6.25 mg 0800,1700 PO 11/28/20 17:00 12/01/20 17:23 Metformin HCl (Glucophage Xr) 500 mg 0800,1700 PO 11/28/20 17:00 12/01/20 17:23 Sertraline HCl (Zoloft) 50 mg DAILY PO 11/29/20 09:00 12/01/20 08:01 Divalproex Sodium (Depakote Er) 500 mg QHS PO 11/28/20 21:00 12/01/20 20:07 Medroxyprogesterone Acetate (Provera) 5 mg DAILY PO 11/29/20 09:00 12/01/20 08:00 Warfarin Sodium (Coumadin Per Pharmacy) 1 each PRN DAILY PRN MC SEE COMMENTS 11/29/20 13:45 12/01/20 10:34 DC Calcium Carbonate/ Glycine (Tums) 500 mg PRN AFTMEALHC PRN PO INDIGESTION 11/29/20 15:15 11/29/20 18:00 Pantoprazole Sodium (Protonix) 40 mg DAILYAC PO 11/30/20 06:00 11/30/20 06:15 DC Ropinirole HCl (Requip) 0.25 mg HS PO 11/29/20 21:00 12/01/20 20:07 Pantoprazole Sodium (Protonix) 40 mg DAILYWBKFT PO 11/30/20 08:00 12/01/20 08:01 Diclofenac Sodium (Voltaren) 2 jaswant QID TP 11/30/20 13:45 12/01/20 20:06 Nystatin (Nystop) 1 jaswant BID TP 12/01/20 21:00 12/01/20 20:07 Current Medications Medications (Trade) Dose Ordered Sig/Payton Route PRN Reason Start Time Stop Time Status Last Admin Dose Admin Nystatin (Nystop) 1 jaswant BID TP 12/01/20 21:00 12/01/20 20:07 I have reviewed the current psychotropics carefully including drug interactions. Risk benefit ratio favors no change other than as noted in my dictated progress note. 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
[2020-12-02 05:40] VITALS: BP 115/65
[2020-12-02] MEDS: PANTOPRAZOLE 40 MG TABLET. PO SCH (08:09)
[2020-12-02] MEDS: CETIRIZINE HCL 10 MG TABLET PO SCH (08:09)
[2020-12-02] MEDS: metFORMIN XR 500 MG TAB.ER.24H PO SCH ×2 (08:09→17:21)
[2020-12-02] MEDS: CARVEDILOL 6.25 MG TABLET PO SCH ×2 (08:09→17:21)
[2020-12-02] MEDS: TAMSULOSIN 0.4 MG CAP.ER.24H. PO SCH (08:09)
[2020-12-02] MEDS: SERTRALINE 50 MG TABLET. PO SCH (08:09)
[2020-12-02] MEDS: NICOTINE 14MG PATCH. TD SCH (08:10)
[2020-12-02] MEDS: POTASSIUM CHLORIDE 20 MEQ TABLET.ER. PO SCH (08:10)
[2020-12-02] MEDS: COLESEVELAM HCL 625 MG PO SCH ×2 (08:10→20:11)
[2020-12-02] MEDS: FUROSEMIDE 20 MG TABLET PO SCH (08:10)
[2020-12-02] MEDS: ATORVASTATIN CALCIUM 20 MG TABLET PO SCH (08:10)
[2020-12-02] MEDS: medroxyPROGESTERone 5 MG TABLET PO SCH (08:10)
[2020-12-02] MEDS: MUPIROCIN 2% TOPICAL OINTMENT 22GM TUBE. TP SCH ×3 (09:12→20:11)
[2020-12-02] MEDS: DICLOFENAC SODIUM 1% TOPICAL GEL 100GM TUBE. TP SCH ×4 (09:13→20:11)
[2020-12-02] MEDS: NYSTATIN TOPICAL POWDER 15GM BOTTLE. TP SCH ×2 (09:13→20:11)
[2020-12-02 15:48] VITALS: BP 128/72
[2020-12-02] MEDS: ALBUTEROL SULFATE 8GM INHALER. INH PRN ×2 (15:49→20:11)
[2020-12-02] MEDS: DIVALPROEX ER 500 MG TAB.ER.24H PO SCH (20:12)
[2020-12-02] MEDS: rOPINIRole 0.25 MG TABLET. PO SCH (20:12)
[2020-12-02] MEDS: GABAPENTIN 300 MG CAPSULE. PO SCH (20:12)
[2020-12-02] MEDS: HYDROcodone/APAP 5/325MG 1 TAB TABLET PO PRN (21:29)
--- NOTE | 2020-12-02 22:15 | PDOC ---
Exam Note: Hero Note: This note is a late entry for 11/29/2020overs elements not covered in my initial note. Subjective: The patient was reviewed on telehealth rounds in the evening of 11/29/2020 with Larissa FISHER due to COVID-19 pandemic, discussed and reviewed the chart. The patient slept 6-1/4 hours previous night. He has not made any sexually inappropriate gestures towards nursing staff. He does have some insomnia, will start trazodone p.r.n., may repeat x1 at 50 mg. Review of Systems: Impaired ambulation, in wheelchair. No CV, pulmonary, eye, ENT system symptoms on review. Mental Status Exam: The patient is reasonably oriented. Speech is coherent. Abstraction fair. Computation impaired. Language function intact. Mood and affect somewhat irritable at times but improved. Laboratory Data: Reviewed. Impression: Bipolar disorder mixed. Mild cognitive impairment. Impulse control disorder. Anxiety disorder. Plan: No change from initial note. Assessment: Vital Signs/I&O: Vital Signs Date Time Temp Pulse Resp B/P (MAP) Pulse Ox O2 Delivery O2 Flow Rate FiO2 12/02/20 21:29 18 Room Air 12/02/20 17:21 64 128/72 12/02/20 15:48 97.8 96 11/30/20 06:07 2.0 I & O 12/01/20 12/01/20 12/02/20 14:59 22:59 06:59 Intake Total 960 ml 480 ml Balance 960 ml 480 ml Labs: Laboratory Tests Test 12/02/20 07:48 12/02/20 13:04 Glucose (Fingerstick) 128 mg/dL (70-99) H Prothrombin Time 19.2 SEC (9.4-11.4) H Prothrombin Time INR 1.9 (0.9-1.1) H Current Medications: Meds: Laboratory Tests Test 12/02/20 07:48 12/02/20 13:04 Glucose (Fingerstick) 128 mg/dL Prothrombin Time 19.2 SEC Prothromb Time International Ratio 1.9 Current Medications Medications (Trade) Dose Ordered Sig/Payton Route PRN Reason Start Time Stop Time Status Last Admin Dose Admin Acetaminophen (Tylenol) 650 mg PRN Q6HRS PRN PO MILD PAIN / TEMP > 100.3'F 11/27/20 16:00 Multi-Ingredient Ointment (Analgesic [place]) 1 jaswant PRN QID PRN TP MUSCLE PAIN 11/27/20 16:00 Al Hydroxide/Mg Hydroxide (Mylanta Plus Xs) 15 ml PRN AFTMEALHC PRN PO 2ND CHOICE DYSPEPSIA 11/27/20 16:00 11/29/20 15:10 Magnesium Hydroxide (Milk Of Magnesia) 2,400 mg PRN QHS PRN PO CONSTIPATION 11/27/20 16:00 Nicotine (Nicoderm Cq 14mg Patch) 1 patch DAILY TD 11/27/20 16:30 12/02/20 08:10 Albuterol Sulfate (Ventolin) 2.5 mg PRN Q4HRS PRN INH SHORTNESS OF BREATH 11/27/20 19:00 11/27/20 19:40 DC Bupropion HCl (Wellbutrin) 75 mg BID PO 11/27/20 21:00 11/28/20 13:37 DC 11/28/20 09:06 Carvedilol (Coreg) 6.25 mg BID PO 11/27/20 21:00 11/28/20 08:04 DC 11/27/20 21:30 Colesevelam HCl (Welchol) 1,250 mg BID PO 11/27/20 21:00 12/02/20 20:11 Diclofenac Sodium (Voltaren) 20 jaswant QID TP 11/27/20 21:00 11/30/20 13:35 DC 11/30/20 09:29 Furosemide (Lasix) 20 mg DAILY PO 11/28/20 09:00 12/02/20 08:10 Gabapentin (Neurontin) 600 mg QHS PO 11/27/20 21:00 12/02/20 20:12 Acetaminophen/ Hydrocodone Bitart (Lortab 5/325) 1 tab PRN Q6HRS PRN PO MOD-SEV PAIN 11/27/20 19:00 12/02/20 21:29 Metformin HCl (Glucophage Xr) 500 mg BID PO 11/27/20 21:00 11/28/20 08:01 DC Nystatin (Nystop) 15 jaswant BID TP 11/27/20 21:00 12/01/20 10:34 DC 12/01/20 09:22 Potassium Chloride (Klor-Con) 20 meq DAILY PO 11/28/20 09:00 12/02/20 08:10 Tamsulosin HCl (Flomax) 0.4 mg DAILY PO 11/28/20 09:00 12/02/20 08:09 Warfarin Sodium (Coumadin) 4 mg DAILY16 PO 11/28/20 16:00 12/01/20 10:34 DC 11/30/20 17:09 Atorvastatin Calcium (Lipitor) 40 mg DAILY PO 11/28/20 09:00 12/02/20 08:10 Non-Formulary Medication (Budesonide/ Formoterol Fumarate (Symbicort 160-4.5 Mcg Inhaler)) 2 puff BID IH 11/27/20 21:00 11/27/20 19:39 DC Cetirizine HCl (ZyrTEC) 10 mg DAILY PO 11/28/20 09:00 12/02/20 08:09 Mupirocin (Bactroban) 1 jaswant TID TP 11/27/20 21:00 12/02/20 20:11 Albuterol Sulfate (Ventolin) 2.5 mg RTQID NEB 11/27/20 20:00 11/27/20 19:39 DC Budesonide (Pulmicort) 0.5 mg RTBID NEB 11/27/20 20:00 11/27/20 19:39 DC Albuterol Sulfate (Ventolin Hfa Inhaler) 1 puff PRN Q6HRS PRN INH SOA 11/27/20 19:45 12/02/20 20:11 Metformin HCl (Glucophage Xr) 500 mg BID PO 11/28/20 09:00 11/28/20 10:51 DC 11/28/20 09:06 Carvedilol (Coreg) 6.25 mg BID PO 11/28/20 09:00 11/28/20 10:51 DC 11/28/20 09:06 Carvedilol (Coreg) 6.25 mg 0800,1700 PO 11/28/20 17:00 12/02/20 17:21 Metformin HCl (Glucophage Xr) 500 mg 0800,1700 PO 11/28/20 17:00 12/02/20 17:21 Sertraline HCl (Zoloft) 50 mg DAILY PO 11/29/20 09:00 12/02/20 08:09 Divalproex Sodium (Depakote Er) 500 mg QHS PO 11/28/20 21:00 12/02/20 20:12 Medroxyprogesterone Acetate (Provera) 5 mg DAILY PO 11/29/20 09:00 12/02/20 08:10 Warfarin Sodium (Coumadin Per Pharmacy) 1 each PRN DAILY PRN MC SEE COMMENTS 11/29/20 13:45 12/01/20 10:34 DC Calcium Carbonate/ Glycine (Tums) 500 mg PRN AFTMEALHC PRN PO 1ST CHOICE INDIGESTION 11/29/20 15:15 11/29/20 18:00 Pantoprazole Sodium (Protonix) 40 mg DAILYAC PO 11/30/20 06:00 11/30/20 06:15 DC Ropinirole HCl (Requip) 0.25 mg HS PO 11/29/20 21:00 12/02/20 20:12 Pantoprazole Sodium (Protonix) 40 mg DAILYWBKFT PO 11/30/20 08:00 12/02/20 08:09 Diclofenac Sodium (Voltaren) 2 jaswant QID TP 11/30/20 13:45 12/02/20 20:11 Nystatin (Nystop) 1 jaswant BID TP 12/01/20 21:00 12/02/20 20:11 I have reviewed the current psychotropics carefully including drug interactions. Risk benefit ratio favors no change other than as noted in my dictated progress note. 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
--- NOTE | 2020-12-02 22:26 | PDOC ---
Exam Note: Hero Note: This note is a late entry for 11/30/2020 covers elements not covered in my initial note. Subjective: The patient was seen on video telehealth services in the evening of 11/30/2020 with Chika FISHER due to COVID-19 pandemic, discussed and reviewed the chart. The patient slept 6-1/4 hours previous night. He is not aggressive. No sexually inappropriate behaviors. Review of Systems: Impaired ambulation, in wheelchair. No CV, pulmonary, eye, ENT system symptoms on review. He is on Coumadin. We will clear with his outpatient providers on the reason for this. Mental Status Exam: The patient is reasonably oriented. Speech is coherent. Abstraction fair. Computation impaired. Language function intact. Mood and affect somewhat irritable. Laboratory Data: Reviewed. Impression: Bipolar disorder mixed. Mild cognitive impairment. Impulse control disorder. Anxiety disorder. Plan: No change from initial note. Assessment: Vital Signs/I&O: Vital Signs Date Time Temp Pulse Resp B/P (MAP) Pulse Ox O2 Delivery O2 Flow Rate FiO2 12/02/20 21:29 18 Room Air 12/02/20 17:21 64 128/72 12/02/20 15:48 97.8 96 11/30/20 06:07 2.0 I & O 12/01/20 12/01/20 12/02/20 15:00 23:00 07:00 Intake Total 960 ml 480 ml Balance 960 ml 480 ml Labs: Laboratory Tests Test 12/02/20 07:48 12/02/20 13:04 Glucose (Fingerstick) 128 mg/dL (70-99) H Prothrombin Time 19.2 SEC (9.4-11.4) H Prothrombin Time INR 1.9 (0.9-1.1) H Current Medications: Meds: Laboratory Tests Test 12/02/20 07:48 12/02/20 13:04 Glucose (Fingerstick) 128 mg/dL Prothrombin Time 19.2 SEC Prothromb Time International Ratio 1.9 Current Medications Medications (Trade) Dose Ordered Sig/Payton Route PRN Reason Start Time Stop Time Status Last Admin Dose Admin Acetaminophen (Tylenol) 650 mg PRN Q6HRS PRN PO MILD PAIN / TEMP > 100.3'F 11/27/20 16:00 Multi-Ingredient Ointment (Analgesic [place]) 1 jaswant PRN QID PRN TP MUSCLE PAIN 11/27/20 16:00 Al Hydroxide/Mg Hydroxide (Mylanta Plus Xs) 15 ml PRN AFTMEALHC PRN PO 2ND CHOICE DYSPEPSIA 11/27/20 16:00 11/29/20 15:10 Magnesium Hydroxide (Milk Of Magnesia) 2,400 mg PRN QHS PRN PO CONSTIPATION 11/27/20 16:00 Nicotine (Nicoderm Cq 14mg Patch) 1 patch DAILY TD 11/27/20 16:30 12/02/20 08:10 Albuterol Sulfate (Ventolin) 2.5 mg PRN Q4HRS PRN INH SHORTNESS OF BREATH 11/27/20 19:00 11/27/20 19:40 DC Bupropion HCl (Wellbutrin) 75 mg BID PO 11/27/20 21:00 11/28/20 13:37 DC 11/28/20 09:06 Carvedilol (Coreg) 6.25 mg BID PO 11/27/20 21:00 11/28/20 08:04 DC 11/27/20 21:30 Colesevelam HCl (Welchol) 1,250 mg BID PO 11/27/20 21:00 12/02/20 20:11 Diclofenac Sodium (Voltaren) 20 jaswant QID TP 11/27/20 21:00 11/30/20 13:35 DC 11/30/20 09:29 Furosemide (Lasix) 20 mg DAILY PO 11/28/20 09:00 12/02/20 08:10 Gabapentin (Neurontin) 600 mg QHS PO 11/27/20 21:00 12/02/20 20:12 Acetaminophen/ Hydrocodone Bitart (Lortab 5/325) 1 tab PRN Q6HRS PRN PO MOD-SEV PAIN 11/27/20 19:00 12/02/20 21:29 Metformin HCl (Glucophage Xr) 500 mg BID PO 11/27/20 21:00 11/28/20 08:01 DC Nystatin (Nystop) 15 jaswant BID TP 11/27/20 21:00 12/01/20 10:34 DC 12/01/20 09:22 Potassium Chloride (Klor-Con) 20 meq DAILY PO 11/28/20 09:00 12/02/20 08:10 Tamsulosin HCl (Flomax) 0.4 mg DAILY PO 11/28/20 09:00 12/02/20 08:09 Warfarin Sodium (Coumadin) 4 mg DAILY16 PO 11/28/20 16:00 12/01/20 10:34 DC 11/30/20 17:09 Atorvastatin Calcium (Lipitor) 40 mg DAILY PO 11/28/20 09:00 12/02/20 08:10 Non-Formulary Medication (Budesonide/ Formoterol Fumarate (Symbicort 160-4.5 Mcg Inhaler)) 2 puff BID IH 11/27/20 21:00 11/27/20 19:39 DC Cetirizine HCl (ZyrTEC) 10 mg DAILY PO 11/28/20 09:00 12/02/20 08:09 Mupirocin (Bactroban) 1 jaswant TID TP 11/27/20 21:00 12/02/20 20:11 Albuterol Sulfate (Ventolin) 2.5 mg RTQID NEB 11/27/20 20:00 11/27/20 19:39 DC Budesonide (Pulmicort) 0.5 mg RTBID NEB 11/27/20 20:00 11/27/20 19:39 DC Albuterol Sulfate (Ventolin Hfa Inhaler) 1 puff PRN Q6HRS PRN INH SOA 11/27/20 19:45 12/02/20 20:11 Metformin HCl (Glucophage Xr) 500 mg BID PO 11/28/20 09:00 11/28/20 10:51 DC 11/28/20 09:06 Carvedilol (Coreg) 6.25 mg BID PO 11/28/20 09:00 11/28/20 10:51 DC 11/28/20 09:06 Carvedilol (Coreg) 6.25 mg 0800,1700 PO 11/28/20 17:00 12/02/20 17:21 Metformin HCl (Glucophage Xr) 500 mg 0800,1700 PO 11/28/20 17:00 12/02/20 17:21 Sertraline HCl (Zoloft) 50 mg DAILY PO 11/29/20 09:00 12/02/20 08:09 Divalproex Sodium (Depakote Er) 500 mg QHS PO 11/28/20 21:00 12/02/20 20:12 Medroxyprogesterone Acetate (Provera) 5 mg DAILY PO 11/29/20 09:00 12/02/20 08:10 Warfarin Sodium (Coumadin Per Pharmacy) 1 each PRN DAILY PRN MC SEE COMMENTS 11/29/20 13:45 12/01/20 10:34 DC Calcium Carbonate/ Glycine (Tums) 500 mg PRN AFTMEALHC PRN PO 1ST CHOICE INDIGESTION 11/29/20 15:15 11/29/20 18:00 Pantoprazole Sodium (Protonix) 40 mg DAILYAC PO 11/30/20 06:00 11/30/20 06:15 DC Ropinirole HCl (Requip) 0.25 mg HS PO 11/29/20 21:00 12/02/20 20:12 Pantoprazole Sodium (Protonix) 40 mg DAILYWBKFT PO 11/30/20 08:00 12/02/20 08:09 Diclofenac Sodium (Voltaren) 2 jaswant QID TP 11/30/20 13:45 12/02/20 20:11 Nystatin (Nystop) 1 jaswant BID TP 12/01/20 21:00 12/02/20 20:11 I have reviewed the current psychotropics carefully including drug interactions. Risk benefit ratio favors no change other than as noted in my dictated progress note. 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
--- NOTE | 2020-12-02 22:44 | PDOC ---
Exam Note: Hero Note: Please also refer to the separate dictated note~for this date of service dictated separately.~Patient seen individually. Discussed the patient with Nursing staff reviewed the chart.~Reviewed interim history and current functioning. Reviewed vital signs,~Labs/ Radiology~and current medications noted below. Continue current treatment with the changes noted in the dictated addendum note Assessment: Vital Signs/I&O: Vital Signs Date Time Temp Pulse Resp B/P (MAP) Pulse Ox O2 Delivery O2 Flow Rate FiO2 12/02/20 21:29 18 Room Air 12/02/20 17:21 64 128/72 12/02/20 15:48 97.8 96 11/30/20 06:07 2.0 I & O 12/01/20 12/01/20 12/02/20 14:59 22:59 06:59 Intake Total 960 ml 480 ml Balance 960 ml 480 ml Labs: Laboratory Tests Test 12/02/20 07:48 12/02/20 13:04 Glucose (Fingerstick) 128 mg/dL (70-99) H Prothrombin Time 19.2 SEC (9.4-11.4) H Prothrombin Time INR 1.9 (0.9-1.1) H Current Medications: Meds: Laboratory Tests Test 12/02/20 07:48 12/02/20 13:04 Glucose (Fingerstick) 128 mg/dL Prothrombin Time 19.2 SEC Prothromb Time International Ratio 1.9 Current Medications Medications (Trade) Dose Ordered Sig/Payton Route PRN Reason Start Time Stop Time Status Last Admin Dose Admin Acetaminophen (Tylenol) 650 mg PRN Q6HRS PRN PO MILD PAIN / TEMP > 100.3'F 11/27/20 16:00 Multi-Ingredient Ointment (Analgesic [place]) 1 jaswant PRN QID PRN TP MUSCLE PAIN 11/27/20 16:00 Al Hydroxide/Mg Hydroxide (Mylanta Plus Xs) 15 ml PRN AFTMEALHC PRN PO 2ND CHOICE DYSPEPSIA 11/27/20 16:00 11/29/20 15:10 Magnesium Hydroxide (Milk Of Magnesia) 2,400 mg PRN QHS PRN PO CONSTIPATION 11/27/20 16:00 Nicotine (Nicoderm Cq 14mg Patch) 1 patch DAILY TD 11/27/20 16:30 12/02/20 08:10 Albuterol Sulfate (Ventolin) 2.5 mg PRN Q4HRS PRN INH SHORTNESS OF BREATH 11/27/20 19:00 11/27/20 19:40 DC Bupropion HCl (Wellbutrin) 75 mg BID PO 11/27/20 21:00 11/28/20 13:37 DC 11/28/20 09:06 Carvedilol (Coreg) 6.25 mg BID PO 11/27/20 21:00 11/28/20 08:04 DC 11/27/20 21:30 Colesevelam HCl (Welchol) 1,250 mg BID PO 11/27/20 21:00 12/02/20 20:11 Diclofenac Sodium (Voltaren) 20 jaswant QID TP 11/27/20 21:00 11/30/20 13:35 DC 11/30/20 09:29 Furosemide (Lasix) 20 mg DAILY PO 11/28/20 09:00 12/02/20 08:10 Gabapentin (Neurontin) 600 mg QHS PO 11/27/20 21:00 12/02/20 20:12 Acetaminophen/ Hydrocodone Bitart (Lortab 5/325) 1 tab PRN Q6HRS PRN PO MOD-SEV PAIN 11/27/20 19:00 12/02/20 21:29 Metformin HCl (Glucophage Xr) 500 mg BID PO 11/27/20 21:00 11/28/20 08:01 DC Nystatin (Nystop) 15 jaswant BID TP 11/27/20 21:00 12/01/20 10:34 DC 12/01/20 09:22 Potassium Chloride (Klor-Con) 20 meq DAILY PO 11/28/20 09:00 12/02/20 08:10 Tamsulosin HCl (Flomax) 0.4 mg DAILY PO 11/28/20 09:00 12/02/20 08:09 Warfarin Sodium (Coumadin) 4 mg DAILY16 PO 11/28/20 16:00 12/01/20 10:34 DC 11/30/20 17:09 Atorvastatin Calcium (Lipitor) 40 mg DAILY PO 11/28/20 09:00 12/02/20 08:10 Non-Formulary Medication (Budesonide/ Formoterol Fumarate (Symbicort 160-4.5 Mcg Inhaler)) 2 puff BID IH 11/27/20 21:00 11/27/20 19:39 DC Cetirizine HCl (ZyrTEC) 10 mg DAILY PO 11/28/20 09:00 12/02/20 08:09 Mupirocin (Bactroban) 1 jaswant TID TP 11/27/20 21:00 12/02/20 20:11 Albuterol Sulfate (Ventolin) 2.5 mg RTQID NEB 11/27/20 20:00 11/27/20 19:39 DC Budesonide (Pulmicort) 0.5 mg RTBID NEB 11/27/20 20:00 11/27/20 19:39 DC Albuterol Sulfate (Ventolin Hfa Inhaler) 1 puff PRN Q6HRS PRN INH SOA 11/27/20 19:45 12/02/20 20:11 Metformin HCl (Glucophage Xr) 500 mg BID PO 11/28/20 09:00 11/28/20 10:51 DC 11/28/20 09:06 Carvedilol (Coreg) 6.25 mg BID PO 11/28/20 09:00 11/28/20 10:51 DC 11/28/20 09:06 Carvedilol (Coreg) 6.25 mg 0800,1700 PO 11/28/20 17:00 12/02/20 17:21 Metformin HCl (Glucophage Xr) 500 mg 0800,1700 PO 11/28/20 17:00 12/02/20 17:21 Sertraline HCl (Zoloft) 50 mg DAILY PO 11/29/20 09:00 12/02/20 08:09 Divalproex Sodium (Depakote Er) 500 mg QHS PO 11/28/20 21:00 12/02/20 20:12 Medroxyprogesterone Acetate (Provera) 5 mg DAILY PO 11/29/20 09:00 12/02/20 08:10 Warfarin Sodium (Coumadin Per Pharmacy) 1 each PRN DAILY PRN MC SEE COMMENTS 11/29/20 13:45 12/01/20 10:34 DC Calcium Carbonate/ Glycine (Tums) 500 mg PRN AFTMEALHC PRN PO 1ST CHOICE INDIGESTION 11/29/20 15:15 11/29/20 18:00 Pantoprazole Sodium (Protonix) 40 mg DAILYAC PO 11/30/20 06:00 11/30/20 06:15 DC Ropinirole HCl (Requip) 0.25 mg HS PO 11/29/20 21:00 12/02/20 20:12 Pantoprazole Sodium (Protonix) 40 mg DAILYWBKFT PO 11/30/20 08:00 12/02/20 08:09 Diclofenac Sodium (Voltaren) 2 jaswant QID TP 11/30/20 13:45 12/02/20 20:11 Nystatin (Nystop) 1 jaswant BID TP 12/01/20 21:00 12/02/20 20:11 I have reviewed the current psychotropics carefully including drug interactions. Risk benefit ratio favors no change other than as noted in my dictated progress note. 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
--- NOTE | 2020-12-02 22:44 | PDOC ---
Exam Note: Hero Note: This note is a late entry for 12/01/2020 covers elements not covered in my initial note. Subjective: The patient was seen face to face in the evening of 12/01/2020 with Chika FISHER, discussed and reviewed the chart. The patient slept 7 hours previous night. We clarified from his primary care physician Coumadin was given for his vascular dementia. We will go ahead and stop it. He has not had any sexually inappropriate behaviors on the unit. Review of Systems: Impaired ambulation, in wheelchair. No CV, pulmonary, eye, ENT system symptoms on review. Mental Status Exam: The patient is oriented to himself and situation. I met with him on the corridors outside his room. Speech is coherent. Abstraction fair. Computation impaired. Language function intact. He is reasonably oriented. No suicidal or homicidal ideation. Laboratory Data: Reviewed. Impression: Bipolar disorder mixed. Mild cognitive impairment. Impulse control disorder. Anxiety disorder. Plan: No change from initial note. Assessment: Vital Signs/I&O: Vital Signs Date Time Temp Pulse Resp B/P (MAP) Pulse Ox O2 Delivery O2 Flow Rate FiO2 12/02/20 21:29 18 Room Air 12/02/20 17:21 64 128/72 12/02/20 15:48 97.8 96 11/30/20 06:07 2.0 I & O 12/01/20 12/01/20 12/02/20 14:59 22:59 06:59 Intake Total 960 ml 480 ml Balance 960 ml 480 ml Labs: Laboratory Tests Test 12/02/20 07:48 12/02/20 13:04 Glucose (Fingerstick) 128 mg/dL (70-99) H Prothrombin Time 19.2 SEC (9.4-11.4) H Prothrombin Time INR 1.9 (0.9-1.1) H Current Medications: Meds: Laboratory Tests Test 12/02/20 07:48 12/02/20 13:04 Glucose (Fingerstick) 128 mg/dL Prothrombin Time 19.2 SEC Prothromb Time International Ratio 1.9 Current Medications Medications (Trade) Dose Ordered Sig/Payton Route PRN Reason Start Time Stop Time Status Last Admin Dose Admin Acetaminophen (Tylenol) 650 mg PRN Q6HRS PRN PO MILD PAIN / TEMP > 100.3'F 11/27/20 16:00 Multi-Ingredient Ointment (Analgesic [place]) 1 jaswant PRN QID PRN TP MUSCLE PAIN 11/27/20 16:00 Al Hydroxide/Mg Hydroxide (Mylanta Plus Xs) 15 ml PRN AFTMEALHC PRN PO 2ND CHOICE DYSPEPSIA 11/27/20 16:00 11/29/20 15:10 Magnesium Hydroxide (Milk Of Magnesia) 2,400 mg PRN QHS PRN PO CONSTIPATION 11/27/20 16:00 Nicotine (Nicoderm Cq 14mg Patch) 1 patch DAILY TD 11/27/20 16:30 12/02/20 08:10 Albuterol Sulfate (Ventolin) 2.5 mg PRN Q4HRS PRN INH SHORTNESS OF BREATH 11/27/20 19:00 11/27/20 19:40 DC Bupropion HCl (Wellbutrin) 75 mg BID PO 11/27/20 21:00 11/28/20 13:37 DC 11/28/20 09:06 Carvedilol (Coreg) 6.25 mg BID PO 11/27/20 21:00 11/28/20 08:04 DC 11/27/20 21:30 Colesevelam HCl (Welchol) 1,250 mg BID PO 11/27/20 21:00 12/02/20 20:11 Diclofenac Sodium (Voltaren) 20 jaswant QID TP 11/27/20 21:00 11/30/20 13:35 DC 11/30/20 09:29 Furosemide (Lasix) 20 mg DAILY PO 11/28/20 09:00 12/02/20 08:10 Gabapentin (Neurontin) 600 mg QHS PO 11/27/20 21:00 12/02/20 20:12 Acetaminophen/ Hydrocodone Bitart (Lortab 5/325) 1 tab PRN Q6HRS PRN PO MOD-SEV PAIN 11/27/20 19:00 12/02/20 21:29 Metformin HCl (Glucophage Xr) 500 mg BID PO 11/27/20 21:00 11/28/20 08:01 DC Nystatin (Nystop) 15 jaswant BID TP 11/27/20 21:00 12/01/20 10:34 DC 12/01/20 09:22 Potassium Chloride (Klor-Con) 20 meq DAILY PO 11/28/20 09:00 12/02/20 08:10 Tamsulosin HCl (Flomax) 0.4 mg DAILY PO 11/28/20 09:00 12/02/20 08:09 Warfarin Sodium (Coumadin) 4 mg DAILY16 PO 11/28/20 16:00 12/01/20 10:34 DC 11/30/20 17:09 Atorvastatin Calcium (Lipitor) 40 mg DAILY PO 11/28/20 09:00 12/02/20 08:10 Non-Formulary Medication (Budesonide/ Formoterol Fumarate (Symbicort 160-4.5 Mcg Inhaler)) 2 puff BID IH 11/27/20 21:00 11/27/20 19:39 DC Cetirizine HCl (ZyrTEC) 10 mg DAILY PO 11/28/20 09:00 12/02/20 08:09 Mupirocin (Bactroban) 1 jaswant TID TP 11/27/20 21:00 12/02/20 20:11 Albuterol Sulfate (Ventolin) 2.5 mg RTQID NEB 11/27/20 20:00 11/27/20 19:39 DC Budesonide (Pulmicort) 0.5 mg RTBID NEB 11/27/20 20:00 11/27/20 19:39 DC Albuterol Sulfate (Ventolin Hfa Inhaler) 1 puff PRN Q6HRS PRN INH SOA 11/27/20 19:45 12/02/20 20:11 Metformin HCl (Glucophage Xr) 500 mg BID PO 11/28/20 09:00 11/28/20 10:51 DC 11/28/20 09:06 Carvedilol (Coreg) 6.25 mg BID PO 11/28/20 09:00 11/28/20 10:51 DC 11/28/20 09:06 Carvedilol (Coreg) 6.25 mg 0800,1700 PO 11/28/20 17:00 12/02/20 17:21 Metformin HCl (Glucophage Xr) 500 mg 0800,1700 PO 11/28/20 17:00 12/02/20 17:21 Sertraline HCl (Zoloft) 50 mg DAILY PO 11/29/20 09:00 12/02/20 08:09 Divalproex Sodium (Depakote Er) 500 mg QHS PO 11/28/20 21:00 12/02/20 20:12 Medroxyprogesterone Acetate (Provera) 5 mg DAILY PO 11/29/20 09:00 12/02/20 08:10 Warfarin Sodium (Coumadin Per Pharmacy) 1 each PRN DAILY PRN MC SEE COMMENTS 11/29/20 13:45 12/01/20 10:34 DC Calcium Carbonate/ Glycine (Tums) 500 mg PRN AFTMEALHC PRN PO 1ST CHOICE INDIGESTION 11/29/20 15:15 11/29/20 18:00 Pantoprazole Sodium (Protonix) 40 mg DAILYAC PO 11/30/20 06:00 11/30/20 06:15 DC Ropinirole HCl (Requip) 0.25 mg HS PO 11/29/20 21:00 12/02/20 20:12 Pantoprazole Sodium (Protonix) 40 mg DAILYWBKFT PO 11/30/20 08:00 12/02/20 08:09 Diclofenac Sodium (Voltaren) 2 jaswant QID TP 11/30/20 13:45 12/02/20 20:11 Nystatin (Nystop) 1 jaswant BID TP 12/01/20 21:00 12/02/20 20:11 I have reviewed the current psychotropics carefully including drug interactions. Risk benefit ratio favors no change other than as noted in my dictated progress note. 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
[2020-12-03 05:41] VITALS: BP 113/62
--- NOTE | 2020-12-03 06:46 | PDOC ---
Exam Note: Hero Note: This note is a late entry for 12/02/2020 covers elements not covered in my initial note. Subjective: The patient was seen face to face in the evening of 12/02/2020 with Chika FISHER, discussed and reviewed the chart. The patient slept 7-1/2 hours previous night. PT/INR were elevated. We will defer to Dr. Sarabia but he was on Coumadin for vascular dementia which we have stopped. He has been appropriate on the unit, not sexually inappropriate or aggressive. Review of Systems: Ambulation impaired, in wheelchair. No CV, pulmonary, eye, ENT system symptoms on review. Reliability poor. Mental Status Exam: The patient is oriented reasonably. Speech is coherent. Abstraction fair. Computation impaired. Language function intact. Attention span fair. Mood and affect is improved. Laboratory Data: Reviewed. Impression: Bipolar disorder mixed. Mild cognitive impairment. Impulse control disorder. Anxiety disorder. Plan: Continue current psychotropics. Check CBC, CMP, valproic acid level and adjust Depakote thereafter. We may need to increase Provera if sexually inappropriate behaviors noted. Assessment: Vital Signs/I&O: Vital Signs Date Time Temp Pulse Resp B/P (MAP) Pulse Ox O2 Delivery O2 Flow Rate FiO2 12/03/20 05:41 98.1 57 22 113/62 (79) 97 Nasal Cannula 2.0 I & O 12/02/20 12/02/20 12/03/20 15:00 23:00 07:00 Intake Total 840 ml 780 ml Balance 840 ml 780 ml Labs: Laboratory Tests Test 12/02/20 07:48 12/02/20 13:04 Glucose (Fingerstick) 128 mg/dL (70-99) H Prothrombin Time 19.2 SEC (9.4-11.4) H Prothrombin Time INR 1.9 (0.9-1.1) H Current Medications: Meds: Laboratory Tests Test 12/02/20 07:48 12/02/20 13:04 Glucose (Fingerstick) 128 mg/dL Prothrombin Time 19.2 SEC Prothromb Time International Ratio 1.9 Current Medications Medications (Trade) Dose Ordered Sig/Payton Route PRN Reason Start Time Stop Time Status Last Admin Dose Admin Acetaminophen (Tylenol) 650 mg PRN Q6HRS PRN PO MILD PAIN / TEMP > 100.3'F 11/27/20 16:00 Multi-Ingredient Ointment (Analgesic [place]) 1 jaswant PRN QID PRN TP MUSCLE PAIN 11/27/20 16:00 Al Hydroxide/Mg Hydroxide (Mylanta Plus Xs) 15 ml PRN AFTMEALHC PRN PO 2ND CHOICE DYSPEPSIA 11/27/20 16:00 11/29/20 15:10 Magnesium Hydroxide (Milk Of Magnesia) 2,400 mg PRN QHS PRN PO CONSTIPATION 11/27/20 16:00 Nicotine (Nicoderm Cq 14mg Patch) 1 patch DAILY TD 11/27/20 16:30 12/02/20 08:10 Albuterol Sulfate (Ventolin) 2.5 mg PRN Q4HRS PRN INH SHORTNESS OF BREATH 11/27/20 19:00 11/27/20 19:40 DC Bupropion HCl (Wellbutrin) 75 mg BID PO 11/27/20 21:00 11/28/20 13:37 DC 11/28/20 09:06 Carvedilol (Coreg) 6.25 mg BID PO 11/27/20 21:00 11/28/20 08:04 DC 11/27/20 21:30 Colesevelam HCl (Welchol) 1,250 mg BID PO 11/27/20 21:00 12/02/20 20:11 Diclofenac Sodium (Voltaren) 20 jaswant QID TP 11/27/20 21:00 11/30/20 13:35 DC 11/30/20 09:29 Furosemide (Lasix) 20 mg DAILY PO 11/28/20 09:00 12/02/20 08:10 Gabapentin (Neurontin) 600 mg QHS PO 11/27/20 21:00 12/02/20 20:12 Acetaminophen/ Hydrocodone Bitart (Lortab 5/325) 1 tab PRN Q6HRS PRN PO MOD-SEV PAIN 11/27/20 19:00 12/02/20 21:29 Metformin HCl (Glucophage Xr) 500 mg BID PO 11/27/20 21:00 11/28/20 08:01 DC Nystatin (Nystop) 15 jaswant BID TP 11/27/20 21:00 12/01/20 10:34 DC 12/01/20 09:22 Potassium Chloride (Klor-Con) 20 meq DAILY PO 11/28/20 09:00 12/02/20 08:10 Tamsulosin HCl (Flomax) 0.4 mg DAILY PO 11/28/20 09:00 12/02/20 08:09 Warfarin Sodium (Coumadin) 4 mg DAILY16 PO 11/28/20 16:00 12/01/20 10:34 DC 11/30/20 17:09 Atorvastatin Calcium (Lipitor) 40 mg DAILY PO 11/28/20 09:00 12/02/20 08:10 Non-Formulary Medication (Budesonide/ Formoterol Fumarate (Symbicort 160-4.5 Mcg Inhaler)) 2 puff BID IH 11/27/20 21:00 11/27/20 19:39 DC Cetirizine HCl (ZyrTEC) 10 mg DAILY PO 11/28/20 09:00 12/02/20 08:09 Mupirocin (Bactroban) 1 jaswant TID TP 11/27/20 21:00 12/02/20 20:11 Albuterol Sulfate (Ventolin) 2.5 mg RTQID NEB 11/27/20 20:00 11/27/20 19:39 DC Budesonide (Pulmicort) 0.5 mg RTBID NEB 11/27/20 20:00 11/27/20 19:39 DC Albuterol Sulfate (Ventolin Hfa Inhaler) 1 puff PRN Q6HRS PRN INH SOA 11/27/20 19:45 12/02/20 20:11 Metformin HCl (Glucophage Xr) 500 mg BID PO 11/28/20 09:00 11/28/20 10:51 DC 11/28/20 09:06 Carvedilol (Coreg) 6.25 mg BID PO 11/28/20 09:00 11/28/20 10:51 DC 11/28/20 09:06 Carvedilol (Coreg) 6.25 mg 0800,1700 PO 11/28/20 17:00 12/02/20 17:21 Metformin HCl (Glucophage Xr) 500 mg 0800,1700 PO 11/28/20 17:00 12/02/20 17:21 Sertraline HCl (Zoloft) 50 mg DAILY PO 11/29/20 09:00 12/02/20 08:09 Divalproex Sodium (Depakote Er) 500 mg QHS PO 11/28/20 21:00 12/02/20 20:12 Medroxyprogesterone Acetate (Provera) 5 mg DAILY PO 11/29/20 09:00 12/02/20 08:10 Warfarin Sodium (Coumadin Per Pharmacy) 1 each PRN DAILY PRN MC SEE COMMENTS 11/29/20 13:45 12/01/20 10:34 DC Calcium Carbonate/ Glycine (Tums) 500 mg PRN AFTMEALHC PRN PO 1ST CHOICE INDIGESTION 11/29/20 15:15 11/29/20 18:00 Pantoprazole Sodium (Protonix) 40 mg DAILYAC PO 11/30/20 06:00 11/30/20 06:15 DC Ropinirole HCl (Requip) 0.25 mg HS PO 11/29/20 21:00 12/02/20 20:12 Pantoprazole Sodium (Protonix) 40 mg DAILYWBKFT PO 11/30/20 08:00 12/02/20 08:09 Diclofenac Sodium (Voltaren) 2 jaswant QID TP 11/30/20 13:45 12/02/20 20:11 Nystatin (Nystop) 1 jaswant BID TP 12/01/20 21:00 12/02/20 20:11 I have reviewed the current psychotropics carefully including drug interactions. Risk benefit ratio favors no change other than as noted in my dictated progress note. 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
[2020-12-03] MEDS: NICOTINE 14MG PATCH. TD SCH (08:12)
[2020-12-03] MEDS: PANTOPRAZOLE 40 MG TABLET. PO SCH (08:12)
[2020-12-03] MEDS: CARVEDILOL 6.25 MG TABLET PO SCH ×2 (08:12→16:28)
[2020-12-03 08:13] LABS: VAL ACID 43 mcg/mL (50-100)
[2020-12-03] MEDS: CETIRIZINE HCL 10 MG TABLET PO SCH (08:13)
[2020-12-03] MEDS: medroxyPROGESTERone 5 MG TABLET PO SCH (08:13)
[2020-12-03] MEDS: POTASSIUM CHLORIDE 20 MEQ TABLET.ER. PO SCH (08:13)
[2020-12-03] MEDS: TAMSULOSIN 0.4 MG CAP.ER.24H. PO SCH (08:13)
[2020-12-03] MEDS: FUROSEMIDE 20 MG TABLET PO SCH (08:13)
[2020-12-03] MEDS: SERTRALINE 50 MG TABLET. PO SCH (08:13)
[2020-12-03] MEDS: ATORVASTATIN CALCIUM 20 MG TABLET PO SCH (08:14)
[2020-12-03] MEDS: metFORMIN XR 500 MG TAB.ER.24H PO SCH ×2 (08:14→16:28)
[2020-12-03] MEDS: DICLOFENAC SODIUM 1% TOPICAL GEL 100GM TUBE. TP SCH ×4 (08:17→21:01)
[2020-12-03] MEDS: MUPIROCIN 2% TOPICAL OINTMENT 22GM TUBE. TP SCH ×3 (08:17→20:30)
[2020-12-03] MEDS: NYSTATIN TOPICAL POWDER 15GM BOTTLE. TP SCH ×2 (08:17→20:30)
[2020-12-03] MEDS: COLESEVELAM HCL 625 MG PO SCH ×2 (08:17→20:31)
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
[2020-12-03 15:46] VITALS: BP 118/70
[2020-12-03] MEDS: HYDROcodone/APAP 5/325MG 1 TAB TABLET PO PRN (16:37)
[2020-12-03] MEDS: GABAPENTIN 300 MG CAPSULE. PO SCH (20:30)
[2020-12-03] MEDS: rOPINIRole 0.25 MG TABLET. PO SCH (20:30)
[2020-12-03] MEDS: DIVALPROEX ER 250 MG TAB.ER.24H. PO SCH (20:30)
--- NOTE | 2020-12-03 22:08 | PDOC ---
Exam Note: Hero Note: Please also refer to the separate dictated note~for this date of service dictated separately.~Patient seen individually. Discussed the patient with Nursing staff reviewed the chart.~Reviewed interim history and current functioning. Reviewed vital signs,~Labs/ Radiology~and current medications noted below. Continue current treatment with the changes noted in the dictated addendum note Assessment: Vital Signs/I&O: Vital Signs Date Time Temp Pulse Resp B/P (MAP) Pulse Ox O2 Delivery O2 Flow Rate FiO2 12/03/20 17:07 97 12/03/20 16:28 95 118/70 12/03/20 15:46 98.2 20 12/03/20 05:41 Nasal Cannula 2.0 I & O 12/02/20 12/02/20 12/03/20 15:00 23:00 07:00 Intake Total 840 ml 780 ml Balance 840 ml 780 ml Labs: Laboratory Tests Test 12/03/20 07:26 12/03/20 07:34 Glucose (Fingerstick) 108 mg/dL (70-99) H Valproic Acid Level 43 mcg/mL (50-100) L Valproic Acid Last Dose Date 12/02/20 Valproic Acid Last Dose Time 2100 Current Medications: Meds: Laboratory Tests Test 12/03/20 07:26 12/03/20 07:34 Glucose (Fingerstick) 108 mg/dL Valproic Acid (Depakene) Level 43 mcg/mL Valproic Acid Last Dose Date 12/02/20 Valproic Acid Last Dose Time 2100 Current Medications Medications (Trade) Dose Ordered Sig/Payton Route PRN Reason Start Time Stop Time Status Last Admin Dose Admin Acetaminophen (Tylenol) 650 mg PRN Q6HRS PRN PO MILD PAIN / TEMP > 100.3'F 11/27/20 16:00 Multi-Ingredient Ointment (Analgesic [place]) 1 ajswant PRN QID PRN TP MUSCLE PAIN 11/27/20 16:00 Al Hydroxide/Mg Hydroxide (Mylanta Plus Xs) 15 ml PRN AFTMEALHC PRN PO 2ND CHOICE DYSPEPSIA 11/27/20 16:00 11/29/20 15:10 Magnesium Hydroxide (Milk Of Magnesia) 2,400 mg PRN QHS PRN PO CONSTIPATION 11/27/20 16:00 Nicotine (Nicoderm Cq 14mg Patch) 1 patch DAILY TD 11/27/20 16:30 12/03/20 08:12 Albuterol Sulfate (Ventolin) 2.5 mg PRN Q4HRS PRN INH SHORTNESS OF BREATH 11/27/20 19:00 11/27/20 19:40 DC Bupropion HCl (Wellbutrin) 75 mg BID PO 11/27/20 21:00 11/28/20 13:37 DC 11/28/20 09:06 Carvedilol (Coreg) 6.25 mg BID PO 11/27/20 21:00 11/28/20 08:04 DC 11/27/20 21:30 Colesevelam HCl (Welchol) 1,250 mg BID PO 11/27/20 21:00 12/03/20 20:31 Diclofenac Sodium (Voltaren) 20 jaswant QID TP 11/27/20 21:00 11/30/20 13:35 DC 11/30/20 09:29 Furosemide (Lasix) 20 mg DAILY PO 11/28/20 09:00 12/03/20 08:13 Gabapentin (Neurontin) 600 mg QHS PO 11/27/20 21:00 12/03/20 20:30 Acetaminophen/ Hydrocodone Bitart (Lortab 5/325) 1 tab PRN Q6HRS PRN PO MOD-SEV PAIN 11/27/20 19:00 12/03/20 16:37 Metformin HCl (Glucophage Xr) 500 mg BID PO 11/27/20 21:00 11/28/20 08:01 DC Nystatin (Nystop) 15 jaswant BID TP 11/27/20 21:00 12/01/20 10:34 DC 12/01/20 09:22 Potassium Chloride (Klor-Con) 20 meq DAILY PO 11/28/20 09:00 12/03/20 08:13 Tamsulosin HCl (Flomax) 0.4 mg DAILY PO 11/28/20 09:00 12/03/20 08:13 Warfarin Sodium (Coumadin) 4 mg DAILY16 PO 11/28/20 16:00 12/01/20 10:34 DC 11/30/20 17:09 Atorvastatin Calcium (Lipitor) 40 mg DAILY PO 11/28/20 09:00 12/03/20 08:14 Non-Formulary Medication (Budesonide/ Formoterol Fumarate (Symbicort 160-4.5 Mcg Inhaler)) 2 puff BID IH 11/27/20 21:00 11/27/20 19:39 DC Cetirizine HCl (ZyrTEC) 10 mg DAILY PO 11/28/20 09:00 12/03/20 08:13 Mupirocin (Bactroban) 1 jaswant TID TP 11/27/20 21:00 12/03/20 20:30 Albuterol Sulfate (Ventolin) 2.5 mg RTQID NEB 11/27/20 20:00 11/27/20 19:39 DC Budesonide (Pulmicort) 0.5 mg RTBID NEB 11/27/20 20:00 11/27/20 19:39 DC Albuterol Sulfate (Ventolin Hfa Inhaler) 1 puff PRN Q6HRS PRN INH SOA 11/27/20 19:45 12/02/20 20:11 Metformin HCl (Glucophage Xr) 500 mg BID PO 11/28/20 09:00 11/28/20 10:51 DC 11/28/20 09:06 Carvedilol (Coreg) 6.25 mg BID PO 11/28/20 09:00 11/28/20 10:51 DC 11/28/20 09:06 Carvedilol (Coreg) 6.25 mg 0800,1700 PO 11/28/20 17:00 12/03/20 16:28 Metformin HCl (Glucophage Xr) 500 mg 0800,1700 PO 11/28/20 17:00 12/03/20 16:28 Sertraline HCl (Zoloft) 50 mg DAILY PO 11/29/20 09:00 12/03/20 08:13 Divalproex Sodium (Depakote Er) 500 mg QHS PO 11/28/20 21:00 12/03/20 16:42 DC 12/02/20 20:12 Medroxyprogesterone Acetate (Provera) 5 mg DAILY PO 11/29/20 09:00 12/03/20 08:13 Warfarin Sodium (Coumadin Per Pharmacy) 1 each PRN DAILY PRN MC SEE COMMENTS 11/29/20 13:45 12/01/20 10:34 DC Calcium Carbonate/ Glycine (Tums) 500 mg PRN AFTMEALHC PRN PO 1ST CHOICE INDIGESTION 11/29/20 15:15 8/14/21 18:00 Pantoprazole Sodium (Protonix) 40 mg DAILYAC PO 11/30/20 06:00 11/30/20 06:15 DC Ropinirole HCl (Requip) 0.25 mg HS PO 11/29/20 21:00 12/03/20 20:30 Pantoprazole Sodium (Protonix) 40 mg DAILYWBKFT PO 11/30/20 08:00 12/03/20 08:12 Diclofenac Sodium (Voltaren) 2 jaswant QID TP 11/30/20 13:45 12/03/20 21:01 Nystatin (Nystop) 1 jaswant BID TP 12/01/20 21:00 12/03/20 20:30 Divalproex Sodium (Depakote Er) 750 mg QHS PO 12/03/20 21:00 12/03/20 20:30 Current Medications Medications (Trade) Dose Ordered Sig/Payton Route PRN Reason Start Time Stop Time Status Last Admin Dose Admin Divalproex Sodium (Depakote Er) 750 mg QHS PO 12/03/20 21:00 12/03/20 20:30 I have reviewed the current psychotropics carefully including drug interactions. Risk benefit ratio favors no change other than as noted in my dictated progress note. 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
[2020-12-04 05:53] VITALS: BP 119/67
[2020-12-04] MEDS: POTASSIUM CHLORIDE 20 MEQ TABLET.ER. PO SCH (08:53)
[2020-12-04] MEDS: CETIRIZINE HCL 10 MG TABLET PO SCH (08:53)
[2020-12-04] MEDS: SERTRALINE 50 MG TABLET. PO SCH (08:53)
[2020-12-04] MEDS: PANTOPRAZOLE 40 MG TABLET. PO SCH (08:54)
[2020-12-04] MEDS: metFORMIN XR 500 MG TAB.ER.24H PO SCH ×2 (08:54→16:19)
[2020-12-04] MEDS: FUROSEMIDE 20 MG TABLET PO SCH (08:55)
[2020-12-04] MEDS: medroxyPROGESTERone 5 MG TABLET PO SCH (08:56)
[2020-12-04] MEDS: NICOTINE 14MG PATCH. TD SCH (08:56)
[2020-12-04] MEDS: CARVEDILOL 6.25 MG TABLET PO SCH ×2 (08:56→16:20)
[2020-12-04] MEDS: ATORVASTATIN CALCIUM 20 MG TABLET PO SCH (08:56)
[2020-12-04] MEDS: MUPIROCIN 2% TOPICAL OINTMENT 22GM TUBE. TP SCH ×3 (08:57→20:21)
[2020-12-04] MEDS: DICLOFENAC SODIUM 1% TOPICAL GEL 100GM TUBE. TP SCH ×4 (08:58→20:21)
[2020-12-04] MEDS: NYSTATIN TOPICAL POWDER 15GM BOTTLE. TP SCH ×3 (09:00→20:20)
[2020-12-04] MEDS: COLESEVELAM HCL 625 MG PO SCH ×2 (09:04→20:22)
[2020-12-04] MEDS: TAMSULOSIN 0.4 MG CAP.ER.24H. PO SCH (09:05)
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
[2020-12-04 15:26] VITALS: BP 106/67
[2020-12-04] MEDS: HYDROcodone/APAP 5/325MG 1 TAB TABLET PO PRN ×2 (15:55→23:31)
[2020-12-04] MEDS: rOPINIRole 0.25 MG TABLET. PO SCH (20:21)
[2020-12-04] MEDS: GABAPENTIN 300 MG CAPSULE. PO SCH (20:21)
[2020-12-04] MEDS: DIVALPROEX ER 250 MG TAB.ER.24H. PO SCH (20:22)
[2020-12-04] MEDS: ALBUTEROL SULFATE 8GM INHALER. INH PRN (20:34)
--- NOTE | 2020-12-04 22:15 | PDOC ---
Exam Note: Hero Note: Please also refer to the separate dictated note~for this date of service dictated separately.~Patient seen individually. Discussed the patient with Nursing staff reviewed the chart.~Reviewed interim history and current functioning. Reviewed vital signs,~Labs/ Radiology~and current medications noted below. Continue current treatment with the changes noted in the dictated addendum note Assessment: Vital Signs/I&O: Vital Signs Date Time Temp Pulse Resp B/P (MAP) Pulse Ox O2 Delivery O2 Flow Rate FiO2 12/04/20 16:43 18 Room Air 12/04/20 16:20 64 106/67 12/04/20 15:26 97.8 99 12/03/20 05:41 2.0 I & O 12/03/20 12/03/20 12/04/20 15:00 23:00 07:00 Intake Total 1020 ml 600 ml Balance 1020 ml 600 ml Labs: Laboratory Tests Test 12/04/20 07:06 Glucose (Fingerstick) 105 mg/dL (70-99) H Current Medications: Meds: Laboratory Tests Test 12/04/20 07:06 Glucose (Fingerstick) 105 mg/dL Current Medications Medications (Trade) Dose Ordered Sig/Payton Route PRN Reason Start Time Stop Time Status Last Admin Dose Admin Acetaminophen (Tylenol) 650 mg PRN Q6HRS PRN PO MILD PAIN / TEMP > 100.3'F 11/27/20 16:00 Multi-Ingredient Ointment (Analgesic [place]) 1 jaswant PRN QID PRN TP MUSCLE PAIN 11/27/20 16:00 Al Hydroxide/Mg Hydroxide (Mylanta Plus Xs) 15 ml PRN AFTMEALHC PRN PO 2ND CHOICE DYSPEPSIA 11/27/20 16:00 11/29/20 15:10 Magnesium Hydroxide (Milk Of Magnesia) 2,400 mg PRN QHS PRN PO CONSTIPATION 11/27/20 16:00 Nicotine (Nicoderm Cq 14mg Patch) 1 patch DAILY TD 11/27/20 16:30 12/04/20 08:56 Albuterol Sulfate (Ventolin) 2.5 mg PRN Q4HRS PRN INH SHORTNESS OF BREATH 11/27/20 19:00 11/27/20 19:40 DC Bupropion HCl (Wellbutrin) 75 mg BID PO 11/27/20 21:00 11/28/20 13:37 DC 11/28/20 09:06 Carvedilol (Coreg) 6.25 mg BID PO 11/27/20 21:00 11/28/20 08:04 DC 11/27/20 21:30 Colesevelam HCl (Welchol) 1,250 mg BID PO 11/27/20 21:00 12/04/20 20:22 Diclofenac Sodium (Voltaren) 20 jaswant QID TP 11/27/20 21:00 11/30/20 13:35 DC 11/30/20 09:29 Furosemide (Lasix) 20 mg DAILY PO 11/28/20 09:00 12/04/20 08:55 Gabapentin (Neurontin) 600 mg QHS PO 11/27/20 21:00 12/04/20 20:21 Acetaminophen/ Hydrocodone Bitart (Lortab 5/325) 1 tab PRN Q6HRS PRN PO MOD-SEV PAIN 11/27/20 19:00 12/04/20 15:55 Metformin HCl (Glucophage Xr) 500 mg BID PO 11/27/20 21:00 11/28/20 08:01 DC Nystatin (Nystop) 15 jaswant BID TP 11/27/20 21:00 12/01/20 10:34 DC 12/01/20 09:22 Potassium Chloride (Klor-Con) 20 meq DAILY PO 11/28/20 09:00 12/04/20 08:53 Tamsulosin HCl (Flomax) 0.4 mg DAILY PO 11/28/20 09:00 12/04/20 09:05 Warfarin Sodium (Coumadin) 4 mg DAILY16 PO 11/28/20 16:00 12/01/20 10:34 DC 11/30/20 17:09 Atorvastatin Calcium (Lipitor) 40 mg DAILY PO 11/28/20 09:00 12/04/20 08:56 Non-Formulary Medication (Budesonide/ Formoterol Fumarate (Symbicort 160-4.5 Mcg Inhaler)) 2 puff BID IH 11/27/20 21:00 11/27/20 19:39 DC Cetirizine HCl (ZyrTEC) 10 mg DAILY PO 11/28/20 09:00 12/04/20 08:53 Mupirocin (Bactroban) 1 jaswant TID TP 11/27/20 21:00 12/04/20 20:21 Albuterol Sulfate (Ventolin) 2.5 mg RTQID NEB 11/27/20 20:00 11/27/20 19:39 DC Budesonide (Pulmicort) 0.5 mg RTBID NEB 11/27/20 20:00 11/27/20 19:39 DC Albuterol Sulfate (Ventolin Hfa Inhaler) 1 puff PRN Q6HRS PRN INH SOA 11/27/20 19:45 12/04/20 20:34 Metformin HCl (Glucophage Xr) 500 mg BID PO 11/28/20 09:00 11/28/20 10:51 DC 11/28/20 09:06 Carvedilol (Coreg) 6.25 mg BID PO 11/28/20 09:00 11/28/20 10:51 DC 11/28/20 09:06 Carvedilol (Coreg) 6.25 mg 0800,1700 PO 11/28/20 17:00 12/04/20 16:20 Metformin HCl (Glucophage Xr) 500 mg 0800,1700 PO 11/28/20 17:00 12/04/20 16:19 Sertraline HCl (Zoloft) 50 mg DAILY PO 11/29/20 09:00 12/04/20 08:53 Divalproex Sodium (Depakote Er) 500 mg QHS PO 11/28/20 21:00 12/03/20 16:42 DC 12/02/20 20:12 Medroxyprogesterone Acetate (Provera) 5 mg DAILY PO 11/29/20 09:00 12/04/20 08:56 Warfarin Sodium (Coumadin Per Pharmacy) 1 each PRN DAILY PRN MC SEE COMMENTS 11/29/20 13:45 12/01/20 10:34 DC Calcium Carbonate/ Glycine (Tums) 500 mg PRN AFTMEALHC PRN PO 1ST CHOICE INDIGESTION 11/29/20 15:15 11/29/20 18:00 Pantoprazole Sodium (Protonix) 40 mg DAILYAC PO 11/30/20 06:00 11/30/20 06:15 DC Ropinirole HCl (Requip) 0.25 mg HS PO 11/29/20 21:00 12/04/20 20:21 Pantoprazole Sodium (Protonix) 40 mg DAILYWBKFT PO 11/30/20 08:00 12/04/20 08:54 Diclofenac Sodium (Voltaren) 2 jaswant QID TP 11/30/20 13:45 12/04/20 20:21 Nystatin (Nystop) 1 jaswant BID TP 12/01/20 21:00 12/04/20 20:20 Divalproex Sodium (Depakote Er) 750 mg QHS PO 12/03/20 21:00 12/04/20 20:22 I have reviewed the current psychotropics carefully including drug interactions. Risk benefit ratio favors no change other than as noted in my dictated progress note. 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
[2020-12-05 06:11] VITALS: BP 128/81
--- NOTE | 2020-12-05 06:49 | PDOC ---
Exam Note: Hero Note: This note is a late entry for 12/03/2020 covers elements not covered in my initial note. Subjective: The patient was seen face to face in the evening of 12/03/2020 with Eli FISHER, discussed and reviewed the chart. The patient slept 6-1/2 hours previous night. He has been calm. Valproic acid level is 43. We will increase Depakote ER from 500 mg h.s. to 750 mg h.s. Check CBC, CMP, valproic acid level in 3 days. Overall the patient has been fairly cooperative, not aggressive. No sexually inappropriate behaviors noted. He is quite obsessively and repeatedly asking about his discharge plans to [facility]. I addressed this with him. Review of Systems: Ambulation impaired, in wheelchair. No CV, , pulmonary, eye, ENT system symptoms on review. Reliability poor. Mental Status Exam: The patient is oriented reasonably. Speech is coherent. Abstraction fair. Computation impaired. Language function intact. Attention span fair. Mood and affect is improved. Laboratory Data: Reviewed. Impression: Bipolar disorder unspecified. Mild cognitive impairment. Impulse control disorder. Anxiety disorder. 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 Plan: Continue current psychotropics and noted as above. Check CBC, CMP, valproic acid level in 3 days. Assessment: Vital Signs/I&O: Vital Signs Date Time Temp Pulse Resp B/P (MAP) Pulse Ox O2 Delivery O2 Flow Rate FiO2 12/05/20 06:11 97.8 60 18 128/81 (97) 98 12/04/20 23:31 Room Air 12/03/20 05:41 2.0 I & O 12/04/20 12/04/20 12/05/20 15:00 23:00 07:00 Intake Total 1320 ml 600 ml Balance 1320 ml 600 ml Labs: Laboratory Tests Test 12/04/20 07:06 Glucose (Fingerstick) 105 mg/dL (70-99) H Current Medications: Meds: Laboratory Tests Test 12/04/20 07:06 Glucose (Fingerstick) 105 mg/dL Current Medications Medications (Trade) Dose Ordered Sig/Payton Route PRN Reason Start Time Stop Time Status Last Admin Dose Admin Acetaminophen (Tylenol) 650 mg PRN Q6HRS PRN PO MILD PAIN / TEMP > 100.3'F 11/27/20 16:00 Multi-Ingredient Ointment (Analgesic [place]) 1 jaswant PRN QID PRN TP MUSCLE PAIN 11/27/20 16:00 Al Hydroxide/Mg Hydroxide (Mylanta Plus Xs) 15 ml PRN AFTMEALHC PRN PO 2ND CHOICE DYSPEPSIA 11/27/20 16:00 11/29/20 15:10 Magnesium Hydroxide (Milk Of Magnesia) 2,400 mg PRN QHS PRN PO CONSTIPATION 11/27/20 16:00 Nicotine (Nicoderm Cq 14mg Patch) 1 patch DAILY TD 11/27/20 16:30 12/04/20 08:56 Albuterol Sulfate (Ventolin) 2.5 mg PRN Q4HRS PRN INH SHORTNESS OF BREATH 11/27/20 19:00 11/27/20 19:40 DC Bupropion HCl (Wellbutrin) 75 mg BID PO 11/27/20 21:00 11/28/20 13:37 DC 11/28/20 09:06 Carvedilol (Coreg) 6.25 mg BID PO 11/27/20 21:00 11/28/20 08:04 DC 11/27/20 21:30 Colesevelam HCl (Welchol) 1,250 mg BID PO 11/27/20 21:00 12/04/20 20:22 Diclofenac Sodium (Voltaren) 20 jaswant QID TP 11/27/20 21:00 11/30/20 13:35 DC 11/30/20 09:29 Furosemide (Lasix) 20 mg DAILY PO 11/28/20 09:00 12/04/20 08:55 Gabapentin (Neurontin) 600 mg QHS PO 11/27/20 21:00 12/04/20 20:21 Acetaminophen/ Hydrocodone Bitart (Lortab 5/325) 1 tab PRN Q6HRS PRN PO MOD-SEV PAIN 11/27/20 19:00 12/04/20 23:31 Metformin HCl (Glucophage Xr) 500 mg BID PO 11/27/20 21:00 11/28/20 08:01 DC Nystatin (Nystop) 15 jaswant BID TP 11/27/20 21:00 12/01/20 10:34 DC 12/01/20 09:22 Potassium Chloride (Klor-Con) 20 meq DAILY PO 11/28/20 09:00 12/04/20 08:53 Tamsulosin HCl (Flomax) 0.4 mg DAILY PO 11/28/20 09:00 12/04/20 09:05 Warfarin Sodium (Coumadin) 4 mg DAILY16 PO 11/28/20 16:00 12/01/20 10:34 DC 11/30/20 17:09 Atorvastatin Calcium (Lipitor) 40 mg DAILY PO 11/28/20 09:00 12/04/20 08:56 Non-Formulary Medication (Budesonide/ Formoterol Fumarate (Symbicort 160-4.5 Mcg Inhaler)) 2 puff BID IH 11/27/20 21:00 11/27/20 19:39 DC Cetirizine HCl (ZyrTEC) 10 mg DAILY PO 11/28/20 09:00 12/04/20 08:53 Mupirocin (Bactroban) 1 jaswant TID TP 11/27/20 21:00 12/04/20 20:21 Albuterol Sulfate (Ventolin) 2.5 mg RTQID NEB 11/27/20 20:00 11/27/20 19:39 DC Budesonide (Pulmicort) 0.5 mg RTBID NEB 11/27/20 20:00 11/27/20 19:39 DC Albuterol Sulfate (Ventolin Hfa Inhaler) 1 puff PRN Q6HRS PRN INH SOA 11/27/20 19:45 12/04/20 20:34 Metformin HCl (Glucophage Xr) 500 mg BID PO 11/28/20 09:00 11/28/20 10:51 DC 11/28/20 09:06 Carvedilol (Coreg) 6.25 mg BID PO 11/28/20 09:00 11/28/20 10:51 DC 11/28/20 09:06 Carvedilol (Coreg) 6.25 mg 0800,1700 PO 11/28/20 17:00 12/04/20 16:20 Metformin HCl (Glucophage Xr) 500 mg 0800,1700 PO 11/28/20 17:00 12/04/20 16:19 Sertraline HCl (Zoloft) 50 mg DAILY PO 11/29/20 09:00 12/04/20 08:53 Divalproex Sodium (Depakote Er) 500 mg QHS PO 11/28/20 21:00 12/03/20 16:42 DC 12/02/20 20:12 Medroxyprogesterone Acetate (Provera) 5 mg DAILY PO 11/29/20 09:00 12/04/20 08:56 Warfarin Sodium (Coumadin Per Pharmacy) 1 each PRN DAILY PRN MC SEE COMMENTS 11/29/20 13:45 12/01/20 10:34 DC Calcium Carbonate/ Glycine (Tums) 500 mg PRN AFTMEALHC PRN PO 1ST CHOICE INDIGESTION 11/29/20 15:15 11/29/20 18:00 Pantoprazole Sodium (Protonix) 40 mg DAILYAC PO 11/30/20 06:00 11/30/20 06:15 DC Ropinirole HCl (Requip) 0.25 mg HS PO 11/29/20 21:00 12/04/20 20:21 Pantoprazole Sodium (Protonix) 40 mg DAILYWBKFT PO 11/30/20 08:00 12/04/20 08:54 Diclofenac Sodium (Voltaren) 2 jaswant QID TP 11/30/20 13:45 12/04/20 20:21 Nystatin (Nystop) 1 jaswant BID TP 12/01/20 21:00 12/04/20 20:20 Divalproex Sodium (Depakote Er) 750 mg QHS PO 12/03/20 21:00 12/04/20 20:22 I have reviewed the current psychotropics carefully including drug interactions. Risk benefit ratio favors no change other than as noted in my dictated progress note. 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
--- NOTE | 2020-12-05 07:00 | PDOC ---
Exam Note: Hero Note: This note is a late entry for 12/04/2020 covers elements not covered in my initial note. Subjective: The patient was reviewed at treatment team meeting individually in the morning on 12/04/2020 with Chanel Evans, Inna Haywood (case management social worker), Eliza, activity therapy and Annette RN, discussed and reviewed the chart. The patient slept 7 hours previous night. He has not had any sexually inappropriate behaviors noted. Consideration has been given to all male units for him but he is being accepted at [facility]. Reviewed his current psychotropics. Adjustment in Depakote and risk-benefit ratio. Review of Systems: Ambulation impaired, in wheelchair. No CV, pulmonary, eye, ENT system symptoms on review. Reliability poor. Mental Status Exam: The patient is oriented reasonably. He is quite verbal, interactive and pleased to hear that social service staff is working on his transition to [facility]. Speech is coherent. Abstraction fair. Computation impaired. Language function intact. Attention span fair. Mood and affect is improved. Laboratory Data: Reviewed. Impression: Bipolar disorder mixed. Mild cognitive impairment. Impulse control disorder. Anxiety disorder. Plan: Continue current psychotropics. Assessment: Vital Signs/I&O: Vital Signs Date Time Temp Pulse Resp B/P (MAP) Pulse Ox O2 Delivery O2 Flow Rate FiO2 12/05/20 06:11 97.8 60 18 128/81 (97) 98 12/04/20 23:31 Room Air 12/03/20 05:41 2.0 I & O 12/04/20 12/04/20 12/05/20 15:00 23:00 07:00 Intake Total 1320 ml 600 ml Balance 1320 ml 600 ml Labs: Laboratory Tests Test 12/04/20 07:06 Glucose (Fingerstick) 105 mg/dL (70-99) H Current Medications: Meds: Laboratory Tests Test 12/04/20 07:06 Glucose (Fingerstick) 105 mg/dL Current Medications Medications (Trade) Dose Ordered Sig/[place]ton Route PRN Reason Start Time Stop Time Status Last Admin Dose Admin Acetaminophen (Tylenol) 650 mg PRN Q6HRS PRN PO MILD PAIN / TEMP > 100.3'F 11/27/20 16:00 Multi-Ingredient Ointment (Analgesic [place]) 1 jaswant PRN QID PRN TP MUSCLE PAIN 11/27/20 16:00 Al Hydroxide/Mg Hydroxide (Mylanta Plus Xs) 15 ml PRN AFTMEALHC PRN PO 2ND CHOICE DYSPEPSIA 11/27/20 16:00 11/29/20 15:10 Magnesium Hydroxide (Milk Of Magnesia) 2,400 mg PRN QHS PRN PO CONSTIPATION 11/27/20 16:00 Nicotine (Nicoderm Cq 14mg Patch) 1 patch DAILY TD 11/27/20 16:30 12/04/20 08:56 Albuterol Sulfate (Ventolin) 2.5 mg PRN Q4HRS PRN INH SHORTNESS OF BREATH 11/27/20 19:00 11/27/20 19:40 DC Bupropion HCl (Wellbutrin) 75 mg BID PO 11/27/20 21:00 11/28/20 13:37 DC 11/28/20 09:06 Carvedilol (Coreg) 6.25 mg BID PO 11/27/20 21:00 11/28/20 08:04 DC 11/27/20 21:30 Colesevelam HCl (Welchol) 1,250 mg BID PO 11/27/20 21:00 12/04/20 20:22 Diclofenac Sodium (Voltaren) 20 jaswant QID TP 11/27/20 21:00 11/30/20 13:35 DC 11/30/20 09:29 Furosemide (Lasix) 20 mg DAILY PO 11/28/20 09:00 12/04/20 08:55 Gabapentin (Neurontin) 600 mg QHS PO 11/27/20 21:00 12/04/20 20:21 Acetaminophen/ Hydrocodone Bitart (Lortab 5/325) 1 tab PRN Q6HRS PRN PO MOD-SEV PAIN 11/27/20 19:00 12/04/20 23:31 Metformin HCl (Glucophage Xr) 500 mg BID PO 11/27/20 21:00 11/28/20 08:01 DC Nystatin (Nystop) 15 jaswant BID TP 11/27/20 21:00 12/01/20 10:34 DC 12/01/20 09:22 Potassium Chloride (Klor-Con) 20 meq DAILY PO 11/28/20 09:00 12/04/20 08:53 Tamsulosin HCl (Flomax) 0.4 mg DAILY PO 11/28/20 09:00 12/04/20 09:05 Warfarin Sodium (Coumadin) 4 mg DAILY16 PO 11/28/20 16:00 12/01/20 10:34 DC 11/30/20 17:09 Atorvastatin Calcium (Lipitor) 40 mg DAILY PO 11/28/20 09:00 12/04/20 08:56 Non-Formulary Medication (Budesonide/ Formoterol Fumarate (Symbicort 160-4.5 Mcg Inhaler)) 2 puff BID IH 11/27/20 21:00 11/27/20 19:39 DC Cetirizine HCl (ZyrTEC) 10 mg DAILY PO 11/28/20 09:00 12/04/20 08:53 Mupirocin (Bactroban) 1 jaswant TID TP 11/27/20 21:00 12/04/20 20:21 Albuterol Sulfate (Ventolin) 2.5 mg RTQID NEB 11/27/20 20:00 11/27/20 19:39 DC Budesonide (Pulmicort) 0.5 mg RTBID NEB 11/27/20 20:00 11/27/20 19:39 DC Albuterol Sulfate (Ventolin Hfa Inhaler) 1 puff PRN Q6HRS PRN INH SOA 11/27/20 19:45 12/04/20 20:34 Metformin HCl (Glucophage Xr) 500 mg BID PO 11/28/20 09:00 11/28/20 10:51 DC 11/28/20 09:06 Carvedilol (Coreg) 6.25 mg BID PO 11/28/20 09:00 11/28/20 10:51 DC 11/28/20 09:06 Carvedilol (Coreg) 6.25 mg 0800,1700 PO 11/28/20 17:00 12/04/20 16:20 Metformin HCl (Glucophage Xr) 500 mg 0800,1700 PO 11/28/20 17:00 12/04/20 16:19 Sertraline HCl (Zoloft) 50 mg DAILY PO 11/29/20 09:00 12/04/20 08:53 Divalproex Sodium (Depakote Er) 500 mg QHS PO 11/28/20 21:00 12/03/20 16:42 DC 12/02/20 20:12 Medroxyprogesterone Acetate (Provera) 5 mg DAILY PO 11/29/20 09:00 12/04/20 08:56 Warfarin Sodium (Coumadin Per Pharmacy) 1 each PRN DAILY PRN MC SEE COMMENTS 11/29/20 13:45 12/01/20 10:34 DC Calcium Carbonate/ Glycine (Tums) 500 mg PRN AFTMEALHC PRN PO 1ST CHOICE INDIGESTION 11/29/20 15:15 11/29/20 18:00 Pantoprazole Sodium (Protonix) 40 mg DAILYAC PO 11/30/20 06:00 11/30/20 06:15 DC Ropinirole HCl (Requip) 0.25 mg HS PO 11/29/20 21:00 12/04/20 20:21 Pantoprazole Sodium (Protonix) 40 mg DAILYWBKFT PO 11/30/20 08:00 12/04/20 08:54 Diclofenac Sodium (Voltaren) 2 jaswant QID TP 11/30/20 13:45 12/04/20 20:21 Nystatin (Nystop) 1 jaswant BID TP 12/01/20 21:00 12/04/20 20:20 Divalproex Sodium (Depakote Er) 750 mg QHS PO 12/03/20 21:00 12/04/20 20:22 I have reviewed the current psychotropics carefully including drug interactions. Risk benefit ratio favors no change other than as noted in my dictated progress note. 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
[2020-12-05] MEDS: metFORMIN XR 500 MG TAB.ER.24H PO SCH ×2 (08:04→16:51)
[2020-12-05] MEDS: PANTOPRAZOLE 40 MG TABLET. PO SCH (08:04)
[2020-12-05] MEDS: TAMSULOSIN 0.4 MG CAP.ER.24H. PO SCH (08:04)
[2020-12-05] MEDS: medroxyPROGESTERone 5 MG TABLET PO SCH (08:05)
[2020-12-05] MEDS: POTASSIUM CHLORIDE 20 MEQ TABLET.ER. PO SCH (08:05)
[2020-12-05] MEDS: ATORVASTATIN CALCIUM 20 MG TABLET PO SCH (08:05)
[2020-12-05] MEDS: CARVEDILOL 6.25 MG TABLET PO SCH ×2 (08:05→16:51)
[2020-12-05] MEDS: FUROSEMIDE 20 MG TABLET PO SCH (08:05)
[2020-12-05] MEDS: SERTRALINE 50 MG TABLET. PO SCH (08:06)
[2020-12-05] MEDS: CETIRIZINE HCL 10 MG TABLET PO SCH (08:06)
[2020-12-05] MEDS: COLESEVELAM HCL 625 MG PO SCH ×2 (08:06→20:45)
[2020-12-05] MEDS: NICOTINE 14MG PATCH. TD SCH (08:07)
[2020-12-05] MEDS: HYDROcodone/APAP 5/325MG 1 TAB TABLET PO PRN ×2 (08:31→20:45)
[2020-12-05] MEDS: DICLOFENAC SODIUM 1% TOPICAL GEL 100GM TUBE. TP SCH ×4 (09:00→20:47)
[2020-12-05] MEDS: MUPIROCIN 2% TOPICAL OINTMENT 22GM TUBE. TP SCH ×3 (09:00→20:46)
[2020-12-05] MEDS: NYSTATIN TOPICAL POWDER 15GM BOTTLE. TP SCH ×2 (09:00→20:46)
[2020-12-05 15:44] VITALS: BP 119/77
[2020-12-05] MEDS: DIVALPROEX ER 250 MG TAB.ER.24H. PO SCH (20:46)
[2020-12-05] MEDS: GABAPENTIN 300 MG CAPSULE. PO SCH (20:46)
[2020-12-05] MEDS: rOPINIRole 0.25 MG TABLET. PO SCH (20:46)
--- NOTE | 2020-12-05 22:04 | PDOC ---
Exam Note: Hero Note: Please also refer to the separate dictated note~for this date of service dictated separately.~Patient seen individually. Discussed the patient with Nursing staff reviewed the chart.~Reviewed interim history and current functioning. Reviewed vital signs,~Labs/ Radiology~and current medications noted below. Continue current treatment with the changes noted in the dictated addendum note Assessment: Vital Signs/I&O: Vital Signs Date Time Temp Pulse Resp B/P (MAP) Pulse Ox O2 Delivery O2 Flow Rate FiO2 12/05/20 21:46 Room Air 12/05/20 16:51 59 119/77 12/05/20 15:44 97.7 18 99 12/03/20 05:41 2.0 I & O 12/04/20 12/04/20 12/05/20 15:00 23:00 07:00 Intake Total 1320 ml 600 ml Balance 1320 ml 600 ml Labs: Laboratory Tests Test 12/05/20 07:53 Glucose (Fingerstick) 129 mg/dL (70-99) H Current Medications: Meds: Laboratory Tests Test 12/05/20 07:53 Glucose (Fingerstick) 129 mg/dL Current Medications Medications (Trade) Dose Ordered Sig/Payton Route PRN Reason Start Time Stop Time Status Last Admin Dose Admin Acetaminophen (Tylenol) 650 mg PRN Q6HRS PRN PO MILD PAIN / TEMP > 100.3'F 11/27/20 16:00 Multi-Ingredient Ointment (Analgesic [place]) 1 jaswant PRN QID PRN TP MUSCLE PAIN 11/27/20 16:00 Al Hydroxide/Mg Hydroxide (Mylanta Plus Xs) 15 ml PRN AFTMEALHC PRN PO 2ND CHOICE DYSPEPSIA 11/27/20 16:00 11/29/20 15:10 Magnesium Hydroxide (Milk Of Magnesia) 2,400 mg PRN QHS PRN PO CONSTIPATION 11/27/20 16:00 Nicotine (Nicoderm Cq 14mg Patch) 1 patch DAILY TD 11/27/20 16:30 12/05/20 08:07 Albuterol Sulfate (Ventolin) 2.5 mg PRN Q4HRS PRN INH SHORTNESS OF BREATH 11/27/20 19:00 11/27/20 19:40 DC Bupropion HCl (Wellbutrin) 75 mg BID PO 11/27/20 21:00 11/28/20 13:37 DC 11/28/20 09:06 Carvedilol (Coreg) 6.25 mg BID PO 11/27/20 21:00 11/28/20 08:04 DC 11/27/20 21:30 Colesevelam HCl (Welchol) 1,250 mg BID PO 11/27/20 21:00 12/05/20 20:45 Diclofenac Sodium (Voltaren) 20 jaswant QID TP 11/27/20 21:00 11/30/20 13:35 DC 11/30/20 09:29 Furosemide (Lasix) 20 mg DAILY PO 11/28/20 09:00 12/05/20 08:05 Gabapentin (Neurontin) 600 mg QHS PO 11/27/20 21:00 12/05/20 20:46 Acetaminophen/ Hydrocodone Bitart (Lortab 5/325) 1 tab PRN Q6HRS PRN PO MOD-SEV PAIN 11/27/20 19:00 12/05/20 20:45 Metformin HCl (Glucophage Xr) 500 mg BID PO 11/27/20 21:00 11/28/20 08:01 DC Nystatin (Nystop) 15 jaswant BID TP 11/27/20 21:00 12/01/20 10:34 DC 12/01/20 09:22 Potassium Chloride (Klor-Con) 20 meq DAILY PO 11/28/20 09:00 12/05/20 08:05 Tamsulosin HCl (Flomax) 0.4 mg DAILY PO 11/28/20 09:00 12/05/20 08:04 Warfarin Sodium (Coumadin) 4 mg DAILY16 PO 11/28/20 16:00 12/01/20 10:34 DC 11/30/20 17:09 Atorvastatin Calcium (Lipitor) 40 mg DAILY PO 11/28/20 09:00 12/05/20 08:05 Non-Formulary Medication (Budesonide/ Formoterol Fumarate (Symbicort 160-4.5 Mcg Inhaler)) 2 puff BID IH 11/27/20 21:00 11/27/20 19:39 DC Cetirizine HCl (ZyrTEC) 10 mg DAILY PO 11/28/20 09:00 12/05/20 08:06 Mupirocin (Bactroban) 1 jaswant TID TP 11/27/20 21:00 12/05/20 20:46 Albuterol Sulfate (Ventolin) 2.5 mg RTQID NEB 11/27/20 20:00 11/27/20 19:39 DC Budesonide (Pulmicort) 0.5 mg RTBID NEB 11/27/20 20:00 11/27/20 19:39 DC Albuterol Sulfate (Ventolin Hfa Inhaler) 1 puff PRN Q6HRS PRN INH SOA 11/27/20 19:45 12/04/20 20:34 Metformin HCl (Glucophage Xr) 500 mg BID PO 11/28/20 09:00 11/28/20 10:51 DC 11/28/20 09:06 Carvedilol (Coreg) 6.25 mg BID PO 11/28/20 09:00 11/28/20 10:51 DC 11/28/20 09:06 Carvedilol (Coreg) 6.25 mg 0800,1700 PO 11/28/20 17:00 12/05/20 16:51 Metformin HCl (Glucophage Xr) 500 mg 0800,1700 PO 11/28/20 17:00 12/05/20 16:51 Sertraline HCl (Zoloft) 50 mg DAILY PO 11/29/20 09:00 12/05/20 08:06 Divalproex Sodium (Depakote Er) 500 mg QHS PO 11/28/20 21:00 12/03/20 16:42 DC 12/02/20 20:12 Medroxyprogesterone Acetate (Provera) 5 mg DAILY PO 11/29/20 09:00 12/05/20 08:05 Warfarin Sodium (Coumadin Per Pharmacy) 1 each PRN DAILY PRN MC SEE COMMENTS 11/29/20 13:45 12/01/20 10:34 DC Calcium Carbonate/ Glycine (Tums) 500 mg PRN AFTMEALHC PRN PO 1ST CHOICE INDIGESTION 11/29/20 15:15 11/29/20 18:00 Pantoprazole Sodium (Protonix) 40 mg DAILYAC PO 11/30/20 06:00 11/30/20 06:15 DC Ropinirole HCl (Requip) 0.25 mg HS PO 11/29/20 21:00 12/05/20 20:46 Pantoprazole Sodium (Protonix) 40 mg DAILYWBKFT PO 11/30/20 08:00 12/05/20 08:04 Diclofenac Sodium (Voltaren) 2 jaswant QID TP 11/30/20 13:45 12/05/20 20:47 Nystatin (Nystop) 1 jaswant BID TP 12/01/20 21:00 12/05/20 20:46 Divalproex Sodium (Depakote Er) 750 mg QHS PO 12/03/20 21:00 12/05/20 20:46 I have reviewed the current psychotropics carefully including drug interactions. Risk benefit ratio favors no change other than as noted in my dictated progress note. 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
[2020-12-06 05:41] VITALS: BP 105/53
[2020-12-06] MEDS: PANTOPRAZOLE 40 MG TABLET. PO SCH (08:00)
[2020-12-06] MEDS: NICOTINE 14MG PATCH. TD SCH (08:28)
[2020-12-06] MEDS: FUROSEMIDE 20 MG TABLET PO SCH (08:29)
[2020-12-06] MEDS: ATORVASTATIN CALCIUM 20 MG TABLET PO SCH (08:29)
[2020-12-06] MEDS: metFORMIN XR 500 MG TAB.ER.24H PO SCH ×2 (08:29→17:00)
[2020-12-06] MEDS: POTASSIUM CHLORIDE 20 MEQ TABLET.ER. PO SCH (08:30)
[2020-12-06] MEDS: CARVEDILOL 6.25 MG TABLET PO SCH ×2 (08:30→17:16)
[2020-12-06] MEDS: SERTRALINE 50 MG TABLET. PO SCH (08:30)
[2020-12-06] MEDS: CETIRIZINE HCL 10 MG TABLET PO SCH (08:30)
[2020-12-06] MEDS: TAMSULOSIN 0.4 MG CAP.ER.24H. PO SCH (08:30)
[2020-12-06] MEDS: medroxyPROGESTERone 5 MG TABLET PO SCH (08:30)
[2020-12-06] MEDS: DICLOFENAC SODIUM 1% TOPICAL GEL 100GM TUBE. TP SCH ×4 (08:32→20:09)
[2020-12-06] MEDS: COLESEVELAM HCL 625 MG PO SCH ×2 (08:32→20:10)
[2020-12-06] MEDS: MUPIROCIN 2% TOPICAL OINTMENT 22GM TUBE. TP SCH ×3 (08:32→20:08)
[2020-12-06] MEDS: NYSTATIN TOPICAL POWDER 15GM BOTTLE. TP SCH ×2 (08:32→20:07)
[2020-12-06 15:48] VITALS: BP 132/71
[2020-12-06] MEDS: ALBUTEROL SULFATE 8GM INHALER. INH PRN (20:07)
[2020-12-06] MEDS: GABAPENTIN 300 MG CAPSULE. PO SCH (20:09)
[2020-12-06] MEDS: DIVALPROEX ER 250 MG TAB.ER.24H. PO SCH (20:09)
[2020-12-06] MEDS: rOPINIRole 0.25 MG TABLET. PO SCH (20:10)
[2020-12-06] MEDS: HYDROcodone/APAP 5/325MG 1 TAB TABLET PO PRN (20:11)
--- NOTE | 2020-12-06 21:58 | PDOC ---
Exam Note: Hero Note: Please also refer to the separate dictated note~for this date of service dictated separately.~Patient seen individually. Discussed the patient with Nursing staff reviewed the chart.~Reviewed interim history and current functioning. Reviewed vital signs,~Labs/ Radiology~and current medications noted below. Continue current treatment with the changes noted in the dictated addendum note Assessment: Vital Signs/I&O: Vital Signs Date Time Temp Pulse Resp B/P (MAP) Pulse Ox O2 Delivery O2 Flow Rate FiO2 12/06/20 21:05 99 12/06/20 17:16 63 132/71 12/06/20 15:48 97.6 20 12/05/20 21:46 Room Air 12/03/20 05:41 2.0 I & O 12/05/20 12/05/20 12/06/20 14:59 22:59 06:59 Intake Total 600 ml 560 ml Balance 600 ml 560 ml Labs: Laboratory Tests Test 12/06/20 07:11 Glucose (Fingerstick) 99 mg/dL (70-99) Current Medications: Meds: Laboratory Tests Test 12/06/20 07:11 Glucose (Fingerstick) 99 mg/dL Current Medications Medications (Trade) Dose Ordered Sig/Payton Route PRN Reason Start Time Stop Time Status Last Admin Dose Admin Acetaminophen (Tylenol) 650 mg PRN Q6HRS PRN PO MILD PAIN / TEMP > 100.3'F 11/27/20 16:00 Multi-Ingredient Ointment (Analgesic [place]) 1 jaswant PRN QID PRN TP MUSCLE PAIN 11/27/20 16:00 Al Hydroxide/Mg Hydroxide (Mylanta Plus Xs) 15 ml PRN AFTMEALHC PRN PO 2ND CHOICE DYSPEPSIA 11/27/20 16:00 11/29/20 15:10 Magnesium Hydroxide (Milk Of Magnesia) 2,400 mg PRN QHS PRN PO CONSTIPATION 11/27/20 16:00 Nicotine (Nicoderm Cq 14mg Patch) 1 patch DAILY TD 11/27/20 16:30 12/06/20 08:28 Albuterol Sulfate (Ventolin) 2.5 mg PRN Q4HRS PRN INH SHORTNESS OF BREATH 11/27/20 19:00 11/27/20 19:40 DC Bupropion HCl (Wellbutrin) 75 mg BID PO 11/27/20 21:00 11/28/20 13:37 DC 11/28/20 09:06 Carvedilol (Coreg) 6.25 mg BID PO 11/27/20 21:00 11/28/20 08:04 DC 11/27/20 21:30 Colesevelam HCl (Welchol) 1,250 mg BID PO 11/27/20 21:00 12/06/20 20:10 Diclofenac Sodium (Voltaren) 20 jaswant QID TP 11/27/20 21:00 11/30/20 13:35 DC 11/30/20 09:29 Furosemide (Lasix) 20 mg DAILY PO 11/28/20 09:00 12/06/20 08:29 Gabapentin (Neurontin) 600 mg QHS PO 11/27/20 21:00 12/06/20 20:09 Acetaminophen/ Hydrocodone Bitart (Lortab 5/325) 1 tab PRN Q6HRS PRN PO MOD-SEV PAIN 11/27/20 19:00 12/06/20 20:11 Metformin HCl (Glucophage Xr) 500 mg BID PO 11/27/20 21:00 11/28/20 08:01 DC Nystatin (Nystop) 15 jaswant BID TP 11/27/20 21:00 12/01/20 10:34 DC 12/01/20 09:22 Potassium Chloride (Klor-Con) 20 meq DAILY PO 11/28/20 09:00 12/06/20 08:30 Tamsulosin HCl (Flomax) 0.4 mg DAILY PO 11/28/20 09:00 12/06/20 08:30 Warfarin Sodium (Coumadin) 4 mg DAILY16 PO 11/28/20 16:00 12/01/20 10:34 DC 11/30/20 17:09 Atorvastatin Calcium (Lipitor) 40 mg DAILY PO 11/28/20 09:00 12/06/20 08:29 Non-Formulary Medication (Budesonide/ Formoterol Fumarate (Symbicort 160-4.5 Mcg Inhaler)) 2 puff BID IH 11/27/20 21:00 11/27/20 19:39 DC Cetirizine HCl (ZyrTEC) 10 mg DAILY PO 11/28/20 09:00 12/06/20 08:30 Mupirocin (Bactroban) 1 jaswant TID TP 11/27/20 21:00 12/06/20 20:08 Albuterol Sulfate (Ventolin) 2.5 mg RTQID NEB 11/27/20 20:00 11/27/20 19:39 DC Budesonide (Pulmicort) 0.5 mg RTBID NEB 11/27/20 20:00 11/27/20 19:39 DC Albuterol Sulfate (Ventolin Hfa Inhaler) 1 puff PRN Q6HRS PRN INH SOA 11/27/20 19:45 12/06/20 20:07 Metformin HCl (Glucophage Xr) 500 mg BID PO 11/28/20 09:00 11/28/20 10:51 DC 11/28/20 09:06 Carvedilol (Coreg) 6.25 mg BID PO 11/28/20 09:00 11/28/20 10:51 DC 11/28/20 09:06 Carvedilol (Coreg) 6.25 mg 0800,1700 PO 11/28/20 17:00 12/06/20 17:16 Metformin HCl (Glucophage Xr) 500 mg 0800,1700 PO 11/28/20 17:00 12/06/20 17:00 Sertraline HCl (Zoloft) 50 mg DAILY PO 11/29/20 09:00 12/06/20 08:30 Divalproex Sodium (Depakote Er) 500 mg QHS PO 11/28/20 21:00 12/03/20 16:42 DC 12/02/20 20:12 Medroxyprogesterone Acetate (Provera) 5 mg DAILY PO 11/29/20 09:00 12/06/20 08:30 Warfarin Sodium (Coumadin Per Pharmacy) 1 each PRN DAILY PRN MC SEE COMMENTS 11/29/20 13:45 12/01/20 10:34 DC Calcium Carbonate/ Glycine (Tums) 500 mg PRN AFTMEALHC PRN PO 1ST CHOICE INDIGESTION 11/29/20 15:15 11/29/20 18:00 Pantoprazole Sodium (Protonix) 40 mg DAILYAC PO 11/30/20 06:00 11/30/20 06:15 DC Ropinirole HCl (Requip) 0.25 mg HS PO 11/29/20 21:00 12/06/20 20:10 Pantoprazole Sodium (Protonix) 40 mg DAILYWBKFT PO 11/30/20 08:00 12/06/20 08:00 Diclofenac Sodium (Voltaren) 2 jaswant QID TP 11/30/20 13:45 12/06/20 20:09 Nystatin (Nystop) 1 jaswant BID TP 12/01/20 21:00 12/06/20 20:07 Divalproex Sodium (Depakote Er) 750 mg QHS PO 12/03/20 21:00 12/06/20 20:09 I have reviewed the current psychotropics carefully including drug interactions. Risk benefit ratio favors no change other than as noted in my dictated progress note. 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
[2020-12-07 06:40] VITALS: BP 131/84
[2020-12-07] MEDS: medroxyPROGESTERone 5 MG TABLET PO SCH (08:27)
[2020-12-07] MEDS: metFORMIN XR 500 MG TAB.ER.24H PO SCH ×2 (08:27→17:11)
[2020-12-07] MEDS: POTASSIUM CHLORIDE 20 MEQ TABLET.ER. PO SCH (08:27)
[2020-12-07] MEDS: ATORVASTATIN CALCIUM 20 MG TABLET PO SCH (08:27)
[2020-12-07] MEDS: FUROSEMIDE 20 MG TABLET PO SCH (08:27)
[2020-12-07] MEDS: COLESEVELAM HCL 625 MG PO SCH ×2 (08:28→20:06)
[2020-12-07] MEDS: TAMSULOSIN 0.4 MG CAP.ER.24H. PO SCH (08:28)
[2020-12-07] MEDS: PANTOPRAZOLE 40 MG TABLET. PO SCH (08:28)
[2020-12-07] MEDS: CETIRIZINE HCL 10 MG TABLET PO SCH (08:28)
[2020-12-07] MEDS: SERTRALINE 50 MG TABLET. PO SCH (08:28)
[2020-12-07] MEDS: CARVEDILOL 6.25 MG TABLET PO SCH ×2 (08:28→17:12)
[2020-12-07] MEDS: NYSTATIN TOPICAL POWDER 15GM BOTTLE. TP SCH (08:29)
[2020-12-07] MEDS: MUPIROCIN 2% TOPICAL OINTMENT 22GM TUBE. TP SCH ×3 (08:29→20:04)
[2020-12-07] MEDS: DICLOFENAC SODIUM 1% TOPICAL GEL 100GM TUBE. TP SCH ×4 (08:29→20:05)
[2020-12-07] MEDS: NICOTINE 14MG PATCH. TD SCH (08:29)
[2020-12-07] MEDS: HYDROcodone/APAP 5/325MG 1 TAB TABLET PO PRN ×2 (10:58→20:07)
[2020-12-07 11:09] LABS: BASO % 1 % (0-3); EOS # 0.1 x10^3/uL (0.0-0.7); EOS % 2 % (0-3); HEMATOCRIT 35.2 % (39.0-53.0); HEMOGLOBIN 11.2 g/dL (13.0-17.5); LYMPH # 1.1 x10^3/uL (1.0-4.8); LYMPH % 24 % (24-48); MEAN CORPUSCULAR HEMOGLOBIN 27 pg (25-35); MEAN CORPUSCULAR HGB CONC 32 g/dL (31-37); MEAN CORPUSCULAR VOLUME 84 fL (79-100); MONO # 0.5 x10^3/uL (0.0-1.1); MONO % 11 % (0-9); NEUT % 62 % (31-73); PLATELET COUNT 136 x10^3/uL (140-400); RED BLOOD COUNT 4.18 x10^6/uL (4.30-5.70); RED CELL DISTRIBUTION WIDTH 17.2 % (11.5-14.5); WHITE BLOOD COUNT 4.8 x10^3/uL (4.0-11.0)
[2020-12-07 11:29] LABS: ALBUMIN 3.3 g/dL (3.4-5.0); ALBUMIN/GLOBULIN RATIO 1.2 (1.0-1.7); ALK PHOS 61 U/L (46-116); ALT (SGPT) 21 U/L (16-63); ANION GAP 7 (6-14); AST (SGOT) 17 U/L (15-37); BLOOD UREA NITROGEN 11 mg/dL (8-26); BUN/CREATININE RATIO 14 (6-20); CALCIUM 8.2 mg/dL (8.5-10.1); CARBON DIOXIDE 27 mmol/L (21-32); CHLORIDE 106 mmol/L (98-107); CREATININE 0.8 mg/dL (0.7-1.3); GFR 92.5; GLUCOSE 183 mg/dL (70-99); POTASSIUM 4.5 mmol/L (3.5-5.1); SODIUM 140 mmol/L (136-145); TOTAL BILIRUBIN 0.4 mg/dL (0.2-1.0); TOTAL PROTEIN 6.1 g/dL (6.4-8.2)
[2020-12-07 11:39] LABS: VAL ACID 68 mcg/mL (50-100)
[2020-12-07] MEDS ORDERED: NYSTATIN TOPICAL POWDER 15GM BOTTLE. TP PRN (14:15)
[2020-12-07 16:05] VITALS: BP 126/70
[2020-12-07] MEDS: rOPINIRole 0.25 MG TABLET. PO SCH (20:06)
[2020-12-07] MEDS: GABAPENTIN 300 MG CAPSULE. PO SCH (20:06)
[2020-12-07] MEDS: DIVALPROEX ER 250 MG TAB.ER.24H. PO SCH (20:07)
--- NOTE | 2020-12-07 23:07 | PDOC ---
Exam Note: Hero Note: Please also refer to the separate dictated note~for this date of service dictated separately.~Patient seen individually. Discussed the patient with Nursing staff reviewed the chart.~Reviewed interim history and current functioning. Reviewed vital signs,~Labs/ Radiology~and current medications noted below. Continue current treatment with the changes noted in the dictated addendum note Assessment: Vital Signs/I&O: Vital Signs Date Time Temp Pulse Resp B/P (MAP) Pulse Ox O2 Delivery O2 Flow Rate FiO2 12/07/20 20:38 97 12/07/20 17:12 77 126/70 12/07/20 16:05 97.3 16 12/07/20 11:55 Room Air 12/03/20 05:41 2.0 I & O 12/06/20 12/06/20 12/07/20 15:00 23:00 07:00 Intake Total 1080 ml 720 ml Balance 1080 ml 720 ml Labs: Laboratory Tests Test 12/07/20 07:33 12/07/20 10:45 Glucose (Fingerstick) 110 mg/dL (70-99) H White Blood Count 4.8 x10^3/uL (4.0-11.0) Red Blood Count 4.18 x10^6/uL (4.30-5.70) L Hemoglobin 11.2 g/dL (13.0-17.5) L Hematocrit 35.2 % (39.0-53.0) L Mean Corpuscular Volume 84 fL (79-100) Mean Corpuscular Hemoglobin 27 pg (25-35) Mean Corpuscular Hemoglobin Concent 32 g/dL (31-37) Red Cell Distribution Width 17.2 % (11.5-14.5) H Platelet Count 136 x10^3/uL (140-400) L Neutrophils (%) (Auto) 62 % (31-73) Lymphocytes (%) (Auto) 24 % (24-48) Monocytes (%) (Auto) 11 % (0-9) H Eosinophils (%) (Auto) 2 % (0-3) Basophils (%) (Auto) 1 % (0-3) Neutrophils # (Auto) 3.0 x10^3uL (1.8-7.7) Lymphocytes # (Auto) 1.1 x10^3/uL (1.0-4.8) Monocytes # (Auto) 0.5 x10^3/uL (0.0-1.1) Eosinophils # (Auto) 0.1 x10^3/uL (0.0-0.7) Basophils # (Auto) 0.0 x10^3/uL (0.0-0.2) Sodium Level 140 mmol/L (136-145) Potassium Level 4.5 mmol/L (3.5-5.1) Chloride Level 106 mmol/L (98-107) Carbon Dioxide Level 27 mmol/L (21-32) Anion Gap 7 (6-14) Blood Urea Nitrogen 11 mg/dL (8-26) Creatinine 0.8 mg/dL (0.7-1.3) Estimated GFR (Cockcroft-Gault) 92.5 BUN/Creatinine Ratio 14 (6-20) Glucose Level 183 mg/dL (70-99) H Calcium Level 8.2 mg/dL (8.5-10.1) L Total Bilirubin 0.4 mg/dL (0.2-1.0) Aspartate Amino Transferase (AST) 17 U/L (15-37) Alanine Aminotransferase (ALT) 21 U/L (16-63) Alkaline Phosphatase 61 U/L (46-116) Total Protein 6.1 g/dL (6.4-8.2) L Albumin 3.3 g/dL (3.4-5.0) L Albumin/Globulin Ratio 1.2 (1.0-1.7) Valproic Acid Level 68 mcg/mL (50-100) Valproic Acid Last Dose Date 12/06/20 Valproic Acid Last Dose Time 2100 Current Medications: Meds: Laboratory Tests Test 12/07/20 07:33 12/07/20 10:45 Glucose (Fingerstick) 110 mg/dL White Blood Count 4.8 x10^3/uL Red Blood Count 4.18 x10^6/uL Hemoglobin 11.2 g/dL Hematocrit 35.2 % Mean Corpuscular Volume 84 fL Mean Corpuscular Hemoglobin 27 pg Mean Corpuscular Hemoglobin Concent 32 g/dL Red Cell Distribution Width 17.2 % Platelet Count 136 x10^3/uL Neutrophils (%) (Auto) 62 % Lymphocytes (%) (Auto) 24 % Monocytes (%) (Auto) 11 % Eosinophils (%) (Auto) 2 % Basophils (%) (Auto) 1 % Neutrophils # (Auto) 3.0 x10^3uL Lymphocytes # (Auto) 1.1 x10^3/uL Monocytes # (Auto) 0.5 x10^3/uL Eosinophils # (Auto) 0.1 x10^3/uL Basophils # (Auto) 0.0 x10^3/uL Sodium Level 140 mmol/L Potassium Level 4.5 mmol/L Chloride Level 106 mmol/L Carbon Dioxide Level 27 mmol/L Anion Gap 7 Blood Urea Nitrogen 11 mg/dL Creatinine 0.8 mg/dL Estimated GFR (Cockcroft-Gault) 92.5 BUN/Creatinine Ratio 14 Glucose Level 183 mg/dL Calcium Level 8.2 mg/dL Total Bilirubin 0.4 mg/dL Aspartate Amino Transf (AST/SGOT) 17 U/L Alanine Aminotransferase (ALT/SGPT) 21 U/L Alkaline Phosphatase 61 U/L Total Protein 6.1 g/dL Albumin 3.3 g/dL Albumin/Globulin Ratio 1.2 Valproic Acid (Depakene) Level 68 mcg/mL Valproic Acid Last Dose Date 12/06/20 Valproic Acid Last Dose Time 2100 Current Medications Medications (Trade) Dose Ordered Sig/Payton Route PRN Reason Start Time Stop Time Status Last Admin Dose Admin Acetaminophen (Tylenol) 650 mg PRN Q6HRS PRN PO MILD PAIN / TEMP > 100.3'F 11/27/20 16:00 Multi-Ingredient Ointment (Analgesic [place]) 1 jaswant PRN QID PRN TP MUSCLE PAIN 11/27/20 16:00 Al Hydroxide/Mg Hydroxide (Mylanta Plus Xs) 15 ml PRN AFTMEALHC PRN PO 2ND CHOICE DYSPEPSIA 11/27/20 16:00 11/29/20 15:10 Magnesium Hydroxide (Milk Of Magnesia) 2,400 mg PRN QHS PRN PO CONSTIPATION 11/27/20 16:00 Nicotine (Nicoderm Cq 14mg Patch) 1 patch DAILY TD 11/27/20 16:30 12/07/20 08:29 Albuterol Sulfate (Ventolin) 2.5 mg PRN Q4HRS PRN INH SHORTNESS OF BREATH 11/27/20 19:00 11/27/20 19:40 DC Bupropion HCl (Wellbutrin) 75 mg BID PO 11/27/20 21:00 11/28/20 13:37 DC 11/28/20 09:06 Carvedilol (Coreg) 6.25 mg BID PO 11/27/20 21:00 11/28/20 08:04 DC 11/27/20 21:30 Colesevelam HCl (Welchol) 1,250 mg BID PO 11/27/20 21:00 12/07/20 20:06 Diclofenac Sodium (Voltaren) 20 jaswant QID TP 11/27/20 21:00 11/30/20 13:35 DC 11/30/20 09:29 Furosemide (Lasix) 20 mg DAILY PO 11/28/20 09:00 12/07/20 08:27 Gabapentin (Neurontin) 600 mg QHS PO 11/27/20 21:00 12/07/20 20:06 Acetaminophen/ Hydrocodone Bitart (Lortab 5/325) 1 tab PRN Q6HRS PRN PO MOD-SEV PAIN 11/27/20 19:00 12/07/20 20:07 Metformin HCl (Glucophage Xr) 500 mg BID PO 11/27/20 21:00 11/28/20 08:01 DC Nystatin (Nystop) 15 jaswant BID TP 11/27/20 21:00 12/01/20 10:34 DC 12/01/20 09:22 Potassium Chloride (Klor-Con) 20 meq DAILY PO 11/28/20 09:00 12/07/20 08:27 Tamsulosin HCl (Flomax) 0.4 mg DAILY PO 11/28/20 09:00 12/07/20 08:28 Warfarin Sodium (Coumadin) 4 mg DAILY16 PO 11/28/20 16:00 12/01/20 10:34 DC 11/30/20 17:09 Atorvastatin Calcium (Lipitor) 40 mg DAILY PO 11/28/20 09:00 12/07/20 08:27 Non-Formulary Medication (Budesonide/ Formoterol Fumarate (Symbicort 160-4.5 Mcg Inhaler)) 2 puff BID IH 11/27/20 21:00 11/27/20 19:39 DC Cetirizine HCl (ZyrTEC) 10 mg DAILY PO 11/28/20 09:00 12/07/20 08:28 Mupirocin (Bactroban) 1 jaswant TID TP 11/27/20 21:00 12/07/20 20:04 Albuterol Sulfate (Ventolin) 2.5 mg RTQID NEB 11/27/20 20:00 11/27/20 19:39 DC Budesonide (Pulmicort) 0.5 mg RTBID NEB 11/27/20 20:00 11/27/20 19:39 DC Albuterol Sulfate (Ventolin Hfa Inhaler) 1 puff PRN Q6HRS PRN INH SOA 11/27/20 19:45 12/06/20 20:07 Metformin HCl (Glucophage Xr) 500 mg BID PO 11/28/20 09:00 11/28/20 10:51 DC 11/28/20 09:06 Carvedilol (Coreg) 6.25 mg BID PO 11/28/20 09:00 11/28/20 10:51 DC 11/28/20 09:06 Carvedilol (Coreg) 6.25 mg 0800,1700 PO 11/28/20 17:00 12/07/20 17:12 Metformin HCl (Glucophage Xr) 500 mg 0800,1700 PO 11/28/20 17:00 12/07/20 17:11 Sertraline HCl (Zoloft) 50 mg DAILY PO 11/29/20 09:00 12/07/20 08:28 Divalproex Sodium (Depakote Er) 500 mg QHS PO 11/28/20 21:00 12/03/20 16:42 DC 12/02/20 20:12 Medroxyprogesterone Acetate (Provera) 5 mg DAILY PO 11/29/20 09:00 12/07/20 08:27 Warfarin Sodium (Coumadin Per Pharmacy) 1 each PRN DAILY PRN MC SEE COMMENTS 11/29/20 13:45 12/01/20 10:34 DC Calcium Carbonate/ Glycine (Tums) 500 mg PRN AFTMEALHC PRN PO 1ST CHOICE INDIGESTION 11/29/20 15:15 11/29/20 18:00 Pantoprazole Sodium (Protonix) 40 mg DAILYAC PO 11/30/20 06:00 11/30/20 06:15 DC Ropinirole HCl (Requip) 0.25 mg HS PO 11/29/20 21:00 12/07/20 20:06 Pantoprazole Sodium (Protonix) 40 mg DAILYWBKFT PO 11/30/20 08:00 12/07/20 08:28 Diclofenac Sodium (Voltaren) 2 jaswant QID TP 11/30/20 13:45 12/07/20 20:05 Nystatin (Nystop) 1 jaswant BID TP 12/01/20 21:00 12/07/20 14:01 DC 12/06/20 20:07 Divalproex Sodium (Depakote Er) 750 mg QHS PO 12/03/20 21:00 12/07/20 20:07 Nystatin (Nystop) 1 jaswant PRN BID PRN TP RASH 12/07/20 14:15 I have reviewed the current psychotropics carefully including drug interactions. Risk benefit ratio favors no change other than as noted in my dictated progress note. 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
[2020-12-08 05:59] VITALS: BP 105/66
--- NOTE | 2020-12-08 06:35 | PDOC ---
Exam Note: Hero Note: This note is a late entry for 12/05/2020 covers elements not covered in my initial note. Subjective: The patient was seen face to face in the evening of 12/05/2020 with Fermin FISHER, discussed and reviewed the chart. The patient slept 5-1/2 hours previous night. He has been fairly cooperative on the unit. He has been somewhat obsessive, anxiously asking about discharge plans. I addressed this with him. Review of Systems: Ambulation impaired, in wheelchair. No CV, , pulmonary, eye, ENT system symptoms on review. Reliability poor. Mental Status Exam: The patient is oriented reasonably. Speech is coherent. Abstraction fair. Computation somewhat impaired. Language function intact. Mood and affect is improved. Laboratory Data: Reviewed. Impression: Bipolar disorder mixed. Mild cognitive impairment. Impulse control disorder. Anxiety disorder. Plan: Continue current psychotropics. Assessment: Vital Signs/I&O: Vital Signs Date Time Temp Pulse Resp B/P (MAP) Pulse Ox O2 Delivery O2 Flow Rate FiO2 12/08/20 05:59 97.5 76 18 105/66 (79) 94 12/07/20 11:55 Room Air 12/03/20 05:41 2.0 I & O 12/07/20 12/07/20 12/08/20 15:00 23:00 07:00 Intake Total 720 ml 240 ml 120 ml Balance 720 ml 240 ml 120 ml Labs: Laboratory Tests Test 12/07/20 07:33 12/07/20 10:45 Glucose (Fingerstick) 110 mg/dL (70-99) H White Blood Count 4.8 x10^3/uL (4.0-11.0) Red Blood Count 4.18 x10^6/uL (4.30-5.70) L Hemoglobin 11.2 g/dL (13.0-17.5) L Hematocrit 35.2 % (39.0-53.0) L Mean Corpuscular Volume 84 fL (79-100) Mean Corpuscular Hemoglobin 27 pg (25-35) Mean Corpuscular Hemoglobin Concent 32 g/dL (31-37) Red Cell Distribution Width 17.2 % (11.5-14.5) H Platelet Count 136 x10^3/uL (140-400) L Neutrophils (%) (Auto) 62 % (31-73) Lymphocytes (%) (Auto) 24 % (24-48) Monocytes (%) (Auto) 11 % (0-9) H Eosinophils (%) (Auto) 2 % (0-3) Basophils (%) (Auto) 1 % (0-3) Neutrophils # (Auto) 3.0 x10^3uL (1.8-7.7) Lymphocytes # (Auto) 1.1 x10^3/uL (1.0-4.8) Monocytes # (Auto) 0.5 x10^3/uL (0.0-1.1) Eosinophils # (Auto) 0.1 x10^3/uL (0.0-0.7) Basophils # (Auto) 0.0 x10^3/uL (0.0-0.2) Sodium Level 140 mmol/L (136-145) Potassium Level 4.5 mmol/L (3.5-5.1) Chloride Level 106 mmol/L (98-107) Carbon Dioxide Level 27 mmol/L (21-32) Anion Gap 7 (6-14) Blood Urea Nitrogen 11 mg/dL (8-26) Creatinine 0.8 mg/dL (0.7-1.3) Estimated GFR (Cockcroft-Gault) 92.5 BUN/Creatinine Ratio 14 (6-20) Glucose Level 183 mg/dL (70-99) H Calcium Level 8.2 mg/dL (8.5-10.1) L Total Bilirubin 0.4 mg/dL (0.2-1.0) Aspartate Amino Transferase (AST) 17 U/L (15-37) Alanine Aminotransferase (ALT) 21 U/L (16-63) Alkaline Phosphatase 61 U/L (46-116) Total Protein 6.1 g/dL (6.4-8.2) L Albumin 3.3 g/dL (3.4-5.0) L Albumin/Globulin Ratio 1.2 (1.0-1.7) Valproic Acid Level 68 mcg/mL (50-100) Valproic Acid Last Dose Date 12/06/20 Valproic Acid Last Dose Time 2100 Current Medications: Meds: Laboratory Tests Test 12/07/20 07:33 12/07/20 10:45 Glucose (Fingerstick) 110 mg/dL White Blood Count 4.8 x10^3/uL Red Blood Count 4.18 x10^6/uL Hemoglobin 11.2 g/dL Hematocrit 35.2 % Mean Corpuscular Volume 84 fL Mean Corpuscular Hemoglobin 27 pg Mean Corpuscular Hemoglobin Concent 32 g/dL Red Cell Distribution Width 17.2 % Platelet Count 136 x10^3/uL Neutrophils (%) (Auto) 62 % Lymphocytes (%) (Auto) 24 % Monocytes (%) (Auto) 11 % Eosinophils (%) (Auto) 2 % Basophils (%) (Auto) 1 % Neutrophils # (Auto) 3.0 x10^3uL Lymphocytes # (Auto) 1.1 x10^3/uL Monocytes # (Auto) 0.5 x10^3/uL Eosinophils # (Auto) 0.1 x10^3/uL Basophils # (Auto) 0.0 x10^3/uL Sodium Level 140 mmol/L Potassium Level 4.5 mmol/L Chloride Level 106 mmol/L Carbon Dioxide Level 27 mmol/L Anion Gap 7 Blood Urea Nitrogen 11 mg/dL Creatinine 0.8 mg/dL Estimated GFR (Cockcroft-Gault) 92.5 BUN/Creatinine Ratio 14 Glucose Level 183 mg/dL Calcium Level 8.2 mg/dL Total Bilirubin 0.4 mg/dL Aspartate Amino Transf (AST/SGOT) 17 U/L Alanine Aminotransferase (ALT/SGPT) 21 U/L Alkaline Phosphatase 61 U/L Total Protein 6.1 g/dL Albumin 3.3 g/dL Albumin/Globulin Ratio 1.2 Valproic Acid (Depakene) Level 68 mcg/mL Valproic Acid Last Dose Date 12/06/20 Valproic Acid Last Dose Time 2100 Current Medications Medications (Trade) Dose Ordered Sig/Payton Route PRN Reason Start Time Stop Time Status Last Admin Dose Admin Acetaminophen (Tylenol) 650 mg PRN Q6HRS PRN PO MILD PAIN / TEMP > 100.3'F 11/27/20 16:00 Multi-Ingredient Ointment (Analgesic [place]) 1 jaswant PRN QID PRN TP MUSCLE PAIN 11/27/20 16:00 Al Hydroxide/Mg Hydroxide (Mylanta Plus Xs) 15 ml PRN AFTMEALHC PRN PO 2ND CHOICE DYSPEPSIA 11/27/20 16:00 11/29/20 15:10 Magnesium Hydroxide (Milk Of Magnesia) 2,400 mg PRN QHS PRN PO CONSTIPATION 8/12/21 16:00 Nicotine (Nicoderm Cq 14mg Patch) 1 patch DAILY TD 11/27/20 16:30 12/07/20 08:29 Albuterol Sulfate (Ventolin) 2.5 mg PRN Q4HRS PRN INH SHORTNESS OF BREATH 11/27/20 19:00 11/27/20 19:40 DC Bupropion HCl (Wellbutrin) 75 mg BID PO 11/27/20 21:00 11/28/20 13:37 DC 11/28/20 09:06 Carvedilol (Coreg) 6.25 mg BID PO 11/27/20 21:00 11/28/20 08:04 DC 11/27/20 21:30 Colesevelam HCl (Welchol) 1,250 mg BID PO 11/27/20 21:00 12/07/20 20:06 Diclofenac Sodium (Voltaren) 20 jaswant QID TP 11/27/20 21:00 11/30/20 13:35 DC 11/30/20 09:29 Furosemide (Lasix) 20 mg DAILY PO 11/28/20 09:00 12/07/20 08:27 Gabapentin (Neurontin) 600 mg QHS PO 11/27/20 21:00 12/07/20 20:06 Acetaminophen/ Hydrocodone Bitart (Lortab 5/325) 1 tab PRN Q6HRS PRN PO MOD-SEV PAIN 11/27/20 19:00 12/07/20 20:07 Metformin HCl (Glucophage Xr) 500 mg BID PO 11/27/20 21:00 11/28/20 08:01 DC Nystatin (Nystop) 15 jaswant BID TP 11/27/20 21:00 12/01/20 10:34 DC 12/01/20 09:22 Potassium Chloride (Klor-Con) 20 meq DAILY PO 11/28/20 09:00 12/07/20 08:27 Tamsulosin HCl (Flomax) 0.4 mg DAILY PO 11/28/20 09:00 12/07/20 08:28 Warfarin Sodium (Coumadin) 4 mg DAILY16 PO 11/28/20 16:00 12/01/20 10:34 DC 11/30/20 17:09 Atorvastatin Calcium (Lipitor) 40 mg DAILY PO 11/28/20 09:00 12/07/20 08:27 Non-Formulary Medication (Budesonide/ Formoterol Fumarate (Symbicort 160-4.5 Mcg Inhaler)) 2 puff BID IH 11/27/20 21:00 11/27/20 19:39 DC Cetirizine HCl (ZyrTEC) 10 mg DAILY PO 11/28/20 09:00 12/07/20 08:28 Mupirocin (Bactroban) 1 jaswant TID TP 11/27/20 21:00 12/07/20 20:04 Albuterol Sulfate (Ventolin) 2.5 mg RTQID NEB 11/27/20 20:00 11/27/20 19:39 DC Budesonide (Pulmicort) 0.5 mg RTBID NEB 11/27/20 20:00 11/27/20 19:39 DC Albuterol Sulfate (Ventolin Hfa Inhaler) 1 puff PRN Q6HRS PRN INH SOA 11/27/20 19:45 12/06/20 20:07 Metformin HCl (Glucophage Xr) 500 mg BID PO 11/28/20 09:00 11/28/20 10:51 DC 11/28/20 09:06 Carvedilol (Coreg) 6.25 mg BID PO 11/28/20 09:00 11/28/20 10:51 DC 11/28/20 09:06 Carvedilol (Coreg) 6.25 mg 0800,1700 PO 11/28/20 17:00 12/07/20 17:12 Metformin HCl (Glucophage Xr) 500 mg 0800,1700 PO 11/28/20 17:00 12/07/20 17:11 Sertraline HCl (Zoloft) 50 mg DAILY PO 11/29/20 09:00 12/07/20 08:28 Divalproex Sodium (Depakote Er) 500 mg QHS PO 11/28/20 21:00 12/03/20 16:42 DC 12/02/20 20:12 Medroxyprogesterone Acetate (Provera) 5 mg DAILY PO 11/29/20 09:00 12/07/20 08:27 Warfarin Sodium (Coumadin Per Pharmacy) 1 each PRN DAILY PRN MC SEE COMMENTS 11/29/20 13:45 12/01/20 10:34 DC Calcium Carbonate/ Glycine (Tums) 500 mg PRN AFTMEALHC PRN PO 1ST CHOICE INDIGESTION 11/29/20 15:15 11/29/20 18:00 Pantoprazole Sodium (Protonix) 40 mg DAILYAC PO 11/30/20 06:00 11/30/20 06:15 DC Ropinirole HCl (Requip) 0.25 mg HS PO 11/29/20 21:00 12/07/20 20:06 Pantoprazole Sodium (Protonix) 40 mg DAILYWBKFT PO 11/30/20 08:00 12/07/20 08:28 Diclofenac Sodium (Voltaren) 2 jaswant QID TP 11/30/20 13:45 12/07/20 20:05 Nystatin (Nystop) 1 jaswant BID TP 12/01/20 21:00 12/07/20 14:01 DC 12/06/20 20:07 Divalproex Sodium (Depakote Er) 750 mg QHS PO 12/03/20 21:00 12/07/20 20:07 Nystatin (Nystop) 1 jaswant PRN BID PRN TP RASH 12/07/20 14:15 I have reviewed the current psychotropics carefully including drug interactions. Risk benefit ratio favors no change other than as noted in my dictated progress note. 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
--- NOTE | 2020-12-08 06:47 | PDOC ---
Exam Note: Hero Note: This note is a late entry for 12/06/2020 covers elements not covered in my initial note. Subjective: The patient was seen face to face in the evening of 12/06/2020 with Heather FISHER, discussed and reviewed the chart. The patient slept 6-1/2 hours previous night. He stays by himself, has not been sexually inappropriate. He remains in his wheelchair as I met with him in the hallway outside his room. Review of Systems: Ambulation impaired, in wheelchair. No CV, pulmonary, eye, ENT system symptoms on review. Reliability poor. Mental Status Exam: The patient is oriented reasonably. Speech is coherent. Abstraction fair. Computation impaired. Language function intact. Mood and affect is improved. Laboratory Data: Reviewed. Impression: Bipolar disorder mixed. Mild cognitive impairment. Impulse control disorder. Anxiety disorder. Plan: Continue current psychotropics. Assessment: Vital Signs/I&O: Vital Signs Date Time Temp Pulse Resp B/P (MAP) Pulse Ox O2 Delivery O2 Flow Rate FiO2 12/08/20 05:59 97.5 76 18 105/66 (79) 94 12/07/20 11:55 Room Air 12/03/20 05:41 2.0 I & O 12/07/20 12/07/20 12/08/20 15:00 23:00 07:00 Intake Total 720 ml 240 ml 120 ml Balance 720 ml 240 ml 120 ml Labs: Laboratory Tests Test 12/07/20 07:33 12/07/20 10:45 Glucose (Fingerstick) 110 mg/dL (70-99) H White Blood Count 4.8 x10^3/uL (4.0-11.0) Red Blood Count 4.18 x10^6/uL (4.30-5.70) L Hemoglobin 11.2 g/dL (13.0-17.5) L Hematocrit 35.2 % (39.0-53.0) L Mean Corpuscular Volume 84 fL (79-100) Mean Corpuscular Hemoglobin 27 pg (25-35) Mean Corpuscular Hemoglobin Concent 32 g/dL (31-37) Red Cell Distribution Width 17.2 % (11.5-14.5) H Platelet Count 136 x10^3/uL (140-400) L Neutrophils (%) (Auto) 62 % (31-73) Lymphocytes (%) (Auto) 24 % (24-48) Monocytes (%) (Auto) 11 % (0-9) H Eosinophils (%) (Auto) 2 % (0-3) Basophils (%) (Auto) 1 % (0-3) Neutrophils # (Auto) 3.0 x10^3uL (1.8-7.7) Lymphocytes # (Auto) 1.1 x10^3/uL (1.0-4.8) Monocytes # (Auto) 0.5 x10^3/uL (0.0-1.1) Eosinophils # (Auto) 0.1 x10^3/uL (0.0-0.7) Basophils # (Auto) 0.0 x10^3/uL (0.0-0.2) Sodium Level 140 mmol/L (136-145) Potassium Level 4.5 mmol/L (3.5-5.1) Chloride Level 106 mmol/L (98-107) Carbon Dioxide Level 27 mmol/L (21-32) Anion Gap 7 (6-14) Blood Urea Nitrogen 11 mg/dL (8-26) Creatinine 0.8 mg/dL (0.7-1.3) Estimated GFR (Cockcroft-Gault) 92.5 BUN/Creatinine Ratio 14 (6-20) Glucose Level 183 mg/dL (70-99) H Calcium Level 8.2 mg/dL (8.5-10.1) L Total Bilirubin 0.4 mg/dL (0.2-1.0) Aspartate Amino Transferase (AST) 17 U/L (15-37) Alanine Aminotransferase (ALT) 21 U/L (16-63) Alkaline Phosphatase 61 U/L (46-116) Total Protein 6.1 g/dL (6.4-8.2) L Albumin 3.3 g/dL (3.4-5.0) L Albumin/Globulin Ratio 1.2 (1.0-1.7) Valproic Acid Level 68 mcg/mL (50-100) Valproic Acid Last Dose Date 12/06/20 Valproic Acid Last Dose Time 2100 Current Medications: Meds: Laboratory Tests Test 12/07/20 07:33 12/07/20 10:45 Glucose (Fingerstick) 110 mg/dL White Blood Count 4.8 x10^3/uL Red Blood Count 4.18 x10^6/uL Hemoglobin 11.2 g/dL Hematocrit 35.2 % Mean Corpuscular Volume 84 fL Mean Corpuscular Hemoglobin 27 pg Mean Corpuscular Hemoglobin Concent 32 g/dL Red Cell Distribution Width 17.2 % Platelet Count 136 x10^3/uL Neutrophils (%) (Auto) 62 % Lymphocytes (%) (Auto) 24 % Monocytes (%) (Auto) 11 % Eosinophils (%) (Auto) 2 % Basophils (%) (Auto) 1 % Neutrophils # (Auto) 3.0 x10^3uL Lymphocytes # (Auto) 1.1 x10^3/uL Monocytes # (Auto) 0.5 x10^3/uL Eosinophils # (Auto) 0.1 x10^3/uL Basophils # (Auto) 0.0 x10^3/uL Sodium Level 140 mmol/L Potassium Level 4.5 mmol/L Chloride Level 106 mmol/L Carbon Dioxide Level 27 mmol/L Anion Gap 7 Blood Urea Nitrogen 11 mg/dL Creatinine 0.8 mg/dL Estimated GFR (Cockcroft-Gault) 92.5 BUN/Creatinine Ratio 14 Glucose Level 183 mg/dL Calcium Level 8.2 mg/dL Total Bilirubin 0.4 mg/dL Aspartate Amino Transf (AST/SGOT) 17 U/L Alanine Aminotransferase (ALT/SGPT) 21 U/L Alkaline Phosphatase 61 U/L Total Protein 6.1 g/dL Albumin 3.3 g/dL Albumin/Globulin Ratio 1.2 Valproic Acid (Depakene) Level 68 mcg/mL Valproic Acid Last Dose Date 12/06/20 Valproic Acid Last Dose Time 2100 Current Medications Medications (Trade) Dose Ordered Sig/Payton Route PRN Reason Start Time Stop Time Status Last Admin Dose Admin Acetaminophen (Tylenol) 650 mg PRN Q6HRS PRN PO MILD PAIN / TEMP > 100.3'F 11/27/20 16:00 Multi-Ingredient Ointment (Analgesic [place]) 1 jaswant PRN QID PRN TP MUSCLE PAIN 11/27/20 16:00 Al Hydroxide/Mg Hydroxide (Mylanta Plus Xs) 15 ml PRN AFTMEALHC PRN PO 2ND CHOICE DYSPEPSIA 11/27/20 16:00 11/29/20 15:10 Magnesium Hydroxide (Milk Of Magnesia) 2,400 mg PRN QHS PRN PO CONSTIPATION 11/27/20 16:00 Nicotine (Nicoderm Cq 14mg Patch) 1 patch DAILY TD 11/27/20 16:30 12/07/20 08:29 Albuterol Sulfate (Ventolin) 2.5 mg PRN Q4HRS PRN INH SHORTNESS OF BREATH 11/27/20 19:00 11/27/20 19:40 DC Bupropion HCl (Wellbutrin) 75 mg BID PO 11/27/20 21:00 11/28/20 13:37 DC 11/28/20 09:06 Carvedilol (Coreg) 6.25 mg BID PO 11/27/20 21:00 11/28/20 08:04 DC 11/27/20 21:30 Colesevelam HCl (Welchol) 1,250 mg BID PO 11/27/20 21:00 12/07/20 20:06 Diclofenac Sodium (Voltaren) 20 jaswant QID TP 11/27/20 21:00 11/30/20 13:35 DC 11/30/20 09:29 Furosemide (Lasix) 20 mg DAILY PO 11/28/20 09:00 12/07/20 08:27 Gabapentin (Neurontin) 600 mg QHS PO 11/27/20 21:00 12/07/20 20:06 Acetaminophen/ Hydrocodone Bitart (Lortab 5/325) 1 tab PRN Q6HRS PRN PO MOD-SEV PAIN 11/27/20 19:00 12/07/20 20:07 Metformin HCl (Glucophage Xr) 500 mg BID PO 11/27/20 21:00 11/28/20 08:01 DC Nystatin (Nystop) 15 jaswant BID TP 11/27/20 21:00 12/01/20 10:34 DC 12/01/20 09:22 Potassium Chloride (Klor-Con) 20 meq DAILY PO 11/28/20 09:00 12/07/20 08:27 Tamsulosin HCl (Flomax) 0.4 mg DAILY PO 11/28/20 09:00 12/07/20 08:28 Warfarin Sodium (Coumadin) 4 mg DAILY16 PO 11/28/20 16:00 12/01/20 10:34 DC 11/30/20 17:09 Atorvastatin Calcium (Lipitor) 40 mg DAILY PO 11/28/20 09:00 12/07/20 08:27 Non-Formulary Medication (Budesonide/ Formoterol Fumarate (Symbicort 160-4.5 Mcg Inhaler)) 2 puff BID IH 11/27/20 21:00 11/27/20 19:39 DC Cetirizine HCl (ZyrTEC) 10 mg DAILY PO 11/28/20 09:00 12/07/20 08:28 Mupirocin (Bactroban) 1 jaswant TID TP 11/27/20 21:00 12/07/20 20:04 Albuterol Sulfate (Ventolin) 2.5 mg RTQID NEB 11/27/20 20:00 11/27/20 19:39 DC Budesonide (Pulmicort) 0.5 mg RTBID NEB 11/27/20 20:00 11/27/20 19:39 DC Albuterol Sulfate (Ventolin Hfa Inhaler) 1 puff PRN Q6HRS PRN INH SOA 11/27/20 19:45 12/06/20 20:07 Metformin HCl (Glucophage Xr) 500 mg BID PO 11/28/20 09:00 11/28/20 10:51 DC 11/28/20 09:06 Carvedilol (Coreg) 6.25 mg BID PO 11/28/20 09:00 11/28/20 10:51 DC 11/28/20 09:06 Carvedilol (Coreg) 6.25 mg 0800,1700 PO 11/28/20 17:00 12/07/20 17:12 Metformin HCl (Glucophage Xr) 500 mg 0800,1700 PO 11/28/20 17:00 12/07/20 17:11 Sertraline HCl (Zoloft) 50 mg DAILY PO 11/29/20 09:00 12/07/20 08:28 Divalproex Sodium (Depakote Er) 500 mg QHS PO 11/28/20 21:00 12/03/20 16:42 DC 12/02/20 20:12 Medroxyprogesterone Acetate (Provera) 5 mg DAILY PO 11/29/20 09:00 12/07/20 08:27 Warfarin Sodium (Coumadin Per Pharmacy) 1 each PRN DAILY PRN MC SEE COMMENTS 11/29/20 13:45 12/01/20 10:34 DC Calcium Carbonate/ Glycine (Tums) 500 mg PRN AFTMEALHC PRN PO 1ST CHOICE INDIGESTION 11/29/20 15:15 11/29/20 18:00 Pantoprazole Sodium (Protonix) 40 mg DAILYAC PO 11/30/20 06:00 11/30/20 06:15 DC Ropinirole HCl (Requip) 0.25 mg HS PO 11/29/20 21:00 12/07/20 20:06 Pantoprazole Sodium (Protonix) 40 mg DAILYWBKFT PO 11/30/20 08:00 12/07/20 08:28 Diclofenac Sodium (Voltaren) 2 jaswant QID TP 11/30/20 13:45 12/07/20 20:05 Nystatin (Nystop) 1 jaswant BID TP 12/01/20 21:00 12/07/20 14:01 DC 12/06/20 20:07 Divalproex Sodium (Depakote Er) 750 mg QHS PO 12/03/20 21:00 12/07/20 20:07 Nystatin (Nystop) 1 jaswant PRN BID PRN TP RASH 12/07/20 14:15 I have reviewed the current psychotropics carefully including drug interactions. Risk benefit ratio favors no change other than as noted in my dictated progress note. 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
--- NOTE | 2020-12-08 06:58 | PDOC ---
Exam Note: Hero Note: This note is a late entry for 12/07/2020 covers elements not covered in my initial note. Subjective: The patient was seen face to face in the evening of 12/07/2020 with Heather FISHER, discussed and reviewed the chart. The patient slept 7-1/2 hours previous night. He has been moved to the [facility]. He has been fairly cooperative on the unit. No sexually inappropriate behaviors or aggression noted. Review of Systems: Ambulation impaired, in wheelchair. No CV, pulmonary, eye, ENT system symptoms on review. Mental Status Exam: The patient is oriented reasonably. Speech is coherent. Abstraction fair. Computation somewhat impaired. Language function intact. Mood and affect is improved. No sexually inappropriate behaviors or aggression noted. Laboratory Data: Reviewed. Impression: Bipolar disorder mixed. Mild cognitive impairment. Impulse control disorder. Anxiety disorder. Plan: Continue current psychotropics. Assessment: Vital Signs/I&O: Vital Signs Date Time Temp Pulse Resp B/P (MAP) Pulse Ox O2 Delivery O2 Flow Rate FiO2 12/08/20 05:59 97.5 76 18 105/66 (79) 94 12/07/20 11:55 Room Air 12/03/20 05:41 2.0 I & O 12/07/20 12/07/20 12/08/20 15:00 23:00 07:00 Intake Total 720 ml 240 ml 120 ml Balance 720 ml 240 ml 120 ml Labs: Laboratory Tests Test 12/07/20 07:33 12/07/20 10:45 Glucose (Fingerstick) 110 mg/dL (70-99) H White Blood Count 4.8 x10^3/uL (4.0-11.0) Red Blood Count 4.18 x10^6/uL (4.30-5.70) L Hemoglobin 11.2 g/dL (13.0-17.5) L Hematocrit 35.2 % (39.0-53.0) L Mean Corpuscular Volume 84 fL (79-100) Mean Corpuscular Hemoglobin 27 pg (25-35) Mean Corpuscular Hemoglobin Concent 32 g/dL (31-37) Red Cell Distribution Width 17.2 % (11.5-14.5) H Platelet Count 136 x10^3/uL (140-400) L Neutrophils (%) (Auto) 62 % (31-73) Lymphocytes (%) (Auto) 24 % (24-48) Monocytes (%) (Auto) 11 % (0-9) H Eosinophils (%) (Auto) 2 % (0-3) Basophils (%) (Auto) 1 % (0-3) Neutrophils # (Auto) 3.0 x10^3uL (1.8-7.7) Lymphocytes # (Auto) 1.1 x10^3/uL (1.0-4.8) Monocytes # (Auto) 0.5 x10^3/uL (0.0-1.1) Eosinophils # (Auto) 0.1 x10^3/uL (0.0-0.7) Basophils # (Auto) 0.0 x10^3/uL (0.0-0.2) Sodium Level 140 mmol/L (136-145) Potassium Level 4.5 mmol/L (3.5-5.1) Chloride Level 106 mmol/L (98-107) Carbon Dioxide Level 27 mmol/L (21-32) Anion Gap 7 (6-14) Blood Urea Nitrogen 11 mg/dL (8-26) Creatinine 0.8 mg/dL (0.7-1.3) Estimated GFR (Cockcroft-Gault) 92.5 BUN/Creatinine Ratio 14 (6-20) Glucose Level 183 mg/dL (70-99) H Calcium Level 8.2 mg/dL (8.5-10.1) L Total Bilirubin 0.4 mg/dL (0.2-1.0) Aspartate Amino Transferase (AST) 17 U/L (15-37) Alanine Aminotransferase (ALT) 21 U/L (16-63) Alkaline Phosphatase 61 U/L (46-116) Total Protein 6.1 g/dL (6.4-8.2) L Albumin 3.3 g/dL (3.4-5.0) L Albumin/Globulin Ratio 1.2 (1.0-1.7) Valproic Acid Level 68 mcg/mL (50-100) Valproic Acid Last Dose Date 12/06/20 Valproic Acid Last Dose Time 2100 Current Medications: Meds: Laboratory Tests Test 12/07/20 07:33 12/07/20 10:45 Glucose (Fingerstick) 110 mg/dL White Blood Count 4.8 x10^3/uL Red Blood Count 4.18 x10^6/uL Hemoglobin 11.2 g/dL Hematocrit 35.2 % Mean Corpuscular Volume 84 fL Mean Corpuscular Hemoglobin 27 pg Mean Corpuscular Hemoglobin Concent 32 g/dL Red Cell Distribution Width 17.2 % Platelet Count 136 x10^3/uL Neutrophils (%) (Auto) 62 % Lymphocytes (%) (Auto) 24 % Monocytes (%) (Auto) 11 % Eosinophils (%) (Auto) 2 % Basophils (%) (Auto) 1 % Neutrophils # (Auto) 3.0 x10^3uL Lymphocytes # (Auto) 1.1 x10^3/uL Monocytes # (Auto) 0.5 x10^3/uL Eosinophils # (Auto) 0.1 x10^3/uL Basophils # (Auto) 0.0 x10^3/uL Sodium Level 140 mmol/L Potassium Level 4.5 mmol/L Chloride Level 106 mmol/L Carbon Dioxide Level 27 mmol/L Anion Gap 7 Blood Urea Nitrogen 11 mg/dL Creatinine 0.8 mg/dL Estimated GFR (Cockcroft-Gault) 92.5 BUN/Creatinine Ratio 14 Glucose Level 183 mg/dL Calcium Level 8.2 mg/dL Total Bilirubin 0.4 mg/dL Aspartate Amino Transf (AST/SGOT) 17 U/L Alanine Aminotransferase (ALT/SGPT) 21 U/L Alkaline Phosphatase 61 U/L Total Protein 6.1 g/dL Albumin 3.3 g/dL Albumin/Globulin Ratio 1.2 Valproic Acid (Depakene) Level 68 mcg/mL Valproic Acid Last Dose Date 12/06/20 Valproic Acid Last Dose Time 2100 Current Medications Medications (Trade) Dose Ordered Sig/Payton Route PRN Reason Start Time Stop Time Status Last Admin Dose Admin Acetaminophen (Tylenol) 650 mg PRN Q6HRS PRN PO MILD PAIN / TEMP > 100.3'F 11/27/20 16:00 Multi-Ingredient Ointment (Analgesic [place]) 1 jaswant PRN QID PRN TP MUSCLE PAIN 11/27/20 16:00 Al Hydroxide/Mg Hydroxide (Mylanta Plus Xs) 15 ml PRN AFTMEALHC PRN PO 2ND CHOICE DYSPEPSIA 11/27/20 16:00 11/29/20 15:10 Magnesium Hydroxide (Milk Of Magnesia) 2,400 mg PRN QHS PRN PO CONSTIPATION 11/27/20 16:00 Nicotine (Nicoderm Cq 14mg Patch) 1 patch DAILY TD 11/27/20 16:30 12/07/20 08:29 Albuterol Sulfate (Ventolin) 2.5 mg PRN Q4HRS PRN INH SHORTNESS OF BREATH 11/27/20 19:00 11/27/20 19:40 DC Bupropion HCl (Wellbutrin) 75 mg BID PO 11/27/20 21:00 11/28/20 13:37 DC 11/28/20 09:06 Carvedilol (Coreg) 6.25 mg BID PO 11/27/20 21:00 11/28/20 08:04 DC 11/27/20 21:30 Colesevelam HCl (Welchol) 1,250 mg BID PO 11/27/20 21:00 12/07/20 20:06 Diclofenac Sodium (Voltaren) 20 jaswant QID TP 11/27/20 21:00 11/30/20 13:35 DC 11/30/20 09:29 Furosemide (Lasix) 20 mg DAILY PO 11/28/20 09:00 12/07/20 08:27 Gabapentin (Neurontin) 600 mg QHS PO 11/27/20 21:00 12/07/20 20:06 Acetaminophen/ Hydrocodone Bitart (Lortab 5/325) 1 tab PRN Q6HRS PRN PO MOD-SEV PAIN 11/27/20 19:00 12/07/20 20:07 Metformin HCl (Glucophage Xr) 500 mg BID PO 11/27/20 21:00 11/28/20 08:01 DC Nystatin (Nystop) 15 jaswant BID TP 11/27/20 21:00 12/01/20 10:34 DC 12/01/20 09:22 Potassium Chloride (Klor-Con) 20 meq DAILY PO 11/28/20 09:00 12/07/20 08:27 Tamsulosin HCl (Flomax) 0.4 mg DAILY PO 11/28/20 09:00 12/07/20 08:28 Warfarin Sodium (Coumadin) 4 mg DAILY16 PO 11/28/20 16:00 12/01/20 10:34 DC 11/30/20 17:09 Atorvastatin Calcium (Lipitor) 40 mg DAILY PO 11/28/20 09:00 12/07/20 08:27 Non-Formulary Medication (Budesonide/ Formoterol Fumarate (Symbicort 160-4.5 Mcg Inhaler)) 2 puff BID IH 11/27/20 21:00 11/27/20 19:39 DC Cetirizine HCl (ZyrTEC) 10 mg DAILY PO 11/28/20 09:00 12/07/20 08:28 Mupirocin (Bactroban) 1 jaswant TID TP 11/27/20 21:00 12/07/20 20:04 Albuterol Sulfate (Ventolin) 2.5 mg RTQID NEB 11/27/20 20:00 11/27/20 19:39 DC Budesonide (Pulmicort) 0.5 mg RTBID NEB 11/27/20 20:00 11/27/20 19:39 DC Albuterol Sulfate (Ventolin Hfa Inhaler) 1 puff PRN Q6HRS PRN INH SOA 11/27/20 19:45 12/06/20 20:07 Metformin HCl (Glucophage Xr) 500 mg BID PO 11/28/20 09:00 11/28/20 10:51 DC 11/28/20 09:06 Carvedilol (Coreg) 6.25 mg BID PO 11/28/20 09:00 11/28/20 10:51 DC 11/28/20 09:06 Carvedilol (Coreg) 6.25 mg 0800,1700 PO 11/28/20 17:00 12/07/20 17:12 Metformin HCl (Glucophage Xr) 500 mg 0800,1700 PO 11/28/20 17:00 12/07/20 17:11 Sertraline HCl (Zoloft) 50 mg DAILY PO 11/29/20 09:00 12/07/20 08:28 Divalproex Sodium (Depakote Er) 500 mg QHS PO 11/28/20 21:00 12/03/20 16:42 DC 12/02/20 20:12 Medroxyprogesterone Acetate (Provera) 5 mg DAILY PO 11/29/20 09:00 12/07/20 08:27 Warfarin Sodium (Coumadin Per Pharmacy) 1 each PRN DAILY PRN MC SEE COMMENTS 11/29/20 13:45 12/01/20 10:34 DC Calcium Carbonate/ Glycine (Tums) 500 mg PRN AFTMEALHC PRN PO 1ST CHOICE INDIGESTION 11/29/20 15:15 11/29/20 18:00 Pantoprazole Sodium (Protonix) 40 mg DAILYAC PO 11/30/20 06:00 11/30/20 06:15 DC Ropinirole HCl (Requip) 0.25 mg HS PO 11/29/20 21:00 12/07/20 20:06 Pantoprazole Sodium (Protonix) 40 mg DAILYWBKFT PO 11/30/20 08:00 12/07/20 08:28 Diclofenac Sodium (Voltaren) 2 jaswant QID TP 11/30/20 13:45 12/07/20 20:05 Nystatin (Nystop) 1 jaswant BID TP 12/01/20 21:00 12/07/20 14:01 DC 12/06/20 20:07 Divalproex Sodium (Depakote Er) 750 mg QHS PO 12/03/20 21:00 12/07/20 20:07 Nystatin (Nystop) 1 jaswant PRN BID PRN TP RASH 12/07/20 14:15 I have reviewed the current psychotropics carefully including drug interactions. Risk benefit ratio favors no change other than as noted in my dictated progress note. 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
[2020-12-08] MEDS: metFORMIN XR 500 MG TAB.ER.24H PO SCH ×2 (08:16→17:06)
[2020-12-08] MEDS: PANTOPRAZOLE 40 MG TABLET. PO SCH (08:16)
[2020-12-08] MEDS: CETIRIZINE HCL 10 MG TABLET PO SCH (08:16)
[2020-12-08] MEDS: NICOTINE 14MG PATCH. TD SCH (08:16)
[2020-12-08] MEDS: TAMSULOSIN 0.4 MG CAP.ER.24H. PO SCH (08:16)
[2020-12-08] MEDS: medroxyPROGESTERone 5 MG TABLET PO SCH (08:16)
[2020-12-08] MEDS: CARVEDILOL 6.25 MG TABLET PO SCH ×2 (08:17→17:00)
[2020-12-08] MEDS: ATORVASTATIN CALCIUM 20 MG TABLET PO SCH (08:17)
[2020-12-08] MEDS: COLESEVELAM HCL 625 MG PO SCH ×2 (08:18→20:16)
[2020-12-08] MEDS: POTASSIUM CHLORIDE 20 MEQ TABLET.ER. PO SCH (08:18)
[2020-12-08] MEDS: SERTRALINE 50 MG TABLET. PO SCH (08:18)
[2020-12-08] MEDS: FUROSEMIDE 20 MG TABLET PO SCH (08:18)
[2020-12-08] MEDS: DICLOFENAC SODIUM 1% TOPICAL GEL 100GM TUBE. TP SCH ×5 (08:19→20:18)
[2020-12-08] MEDS: MUPIROCIN 2% TOPICAL OINTMENT 22GM TUBE. TP SCH ×3 (08:20→20:17)
[2020-12-08 15:26] VITALS: BP 128/72
[2020-12-08] MEDS: HYDROcodone/APAP 5/325MG 1 TAB TABLET PO PRN (15:31)
[2020-12-08] MEDS: GABAPENTIN 300 MG CAPSULE. PO SCH (20:16)
[2020-12-08] MEDS: rOPINIRole 0.25 MG TABLET. PO SCH (20:16)
[2020-12-08] MEDS: DIVALPROEX ER 250 MG TAB.ER.24H. PO SCH (20:17)
--- NOTE | 2020-12-08 23:01 | PDOC ---
Exam Note: Hero Note: Please also refer to the separate dictated note~for this date of service dictated separately.~Patient seen individually. Discussed the patient with Nursing staff reviewed the chart.~Reviewed interim history and current functioning. Reviewed vital signs,~Labs/ Radiology~and current medications noted below. Continue current treatment with the changes noted in the dictated addendum note Assessment: Vital Signs/I&O: Vital Signs Date Time Temp Pulse Resp B/P (MAP) Pulse Ox O2 Delivery O2 Flow Rate FiO2 12/08/20 17:06 20 12/08/20 17:00 74 128/72 12/08/20 15:26 97.8 96 12/07/20 11:55 Room Air 12/03/20 05:41 2.0 I & O 12/07/20 12/07/20 12/08/20 15:00 23:00 07:00 Intake Total 720 ml 240 ml 120 ml Balance 720 ml 240 ml 120 ml Labs: Laboratory Tests Test 12/08/20 07:02 Glucose (Fingerstick) 111 mg/dL (70-99) H Current Medications: Meds: Laboratory Tests Test 12/08/20 07:02 Glucose (Fingerstick) 111 mg/dL Current Medications Medications (Trade) Dose Ordered Sig/Payton Route PRN Reason Start Time Stop Time Status Last Admin Dose Admin Acetaminophen (Tylenol) 650 mg PRN Q6HRS PRN PO MILD PAIN / TEMP > 100.3'F 11/27/20 16:00 Multi-Ingredient Ointment (Analgesic [place]) 1 jaswant PRN QID PRN TP MUSCLE PAIN 11/27/20 16:00 Al Hydroxide/Mg Hydroxide (Mylanta Plus Xs) 15 ml PRN AFTMEALHC PRN PO 2ND CHOICE DYSPEPSIA 11/27/20 16:00 11/29/20 15:10 Magnesium Hydroxide (Milk Of Magnesia) 2,400 mg PRN QHS PRN PO CONSTIPATION 11/27/20 16:00 Nicotine (Nicoderm Cq 14mg Patch) 1 patch DAILY TD 11/27/20 16:30 12/08/20 08:16 Albuterol Sulfate (Ventolin) 2.5 mg PRN Q4HRS PRN INH SHORTNESS OF BREATH 11/27/20 19:00 11/27/20 19:40 DC Bupropion HCl (Wellbutrin) 75 mg BID PO 11/27/20 21:00 11/28/20 13:37 DC 11/28/20 09:06 Carvedilol (Coreg) 6.25 mg BID PO 11/27/20 21:00 11/28/20 08:04 DC 11/27/20 21:30 Colesevelam HCl (Welchol) 1,250 mg BID PO 11/27/20 21:00 12/08/20 20:16 Diclofenac Sodium (Voltaren) 20 jaswant QID TP 11/27/20 21:00 11/30/20 13:35 DC 11/30/20 09:29 Furosemide (Lasix) 20 mg DAILY PO 11/28/20 09:00 12/08/20 08:18 Gabapentin (Neurontin) 600 mg QHS PO 11/27/20 21:00 12/08/20 20:16 Acetaminophen/ Hydrocodone Bitart (Lortab 5/325) 1 tab PRN Q6HRS PRN PO MOD-SEV PAIN 11/27/20 19:00 12/08/20 15:31 Metformin HCl (Glucophage Xr) 500 mg BID PO 11/27/20 21:00 11/28/20 08:01 DC Nystatin (Nystop) 15 jaswant BID TP 11/27/20 21:00 12/01/20 10:34 DC 12/01/20 09:22 Potassium Chloride (Klor-Con) 20 meq DAILY PO 11/28/20 09:00 12/08/20 08:18 Tamsulosin HCl (Flomax) 0.4 mg DAILY PO 11/28/20 09:00 12/08/20 08:16 Warfarin Sodium (Coumadin) 4 mg DAILY16 PO 11/28/20 16:00 12/01/20 10:34 DC 11/30/20 17:09 Atorvastatin Calcium (Lipitor) 40 mg DAILY PO 11/28/20 09:00 12/08/20 08:17 Non-Formulary Medication (Budesonide/ Formoterol Fumarate (Symbicort 160-4.5 Mcg Inhaler)) 2 puff BID IH 11/27/20 21:00 11/27/20 19:39 DC Cetirizine HCl (ZyrTEC) 10 mg DAILY PO 11/28/20 09:00 12/08/20 08:16 Mupirocin (Bactroban) 1 jaswant TID TP 11/27/20 21:00 12/08/20 20:17 Albuterol Sulfate (Ventolin) 2.5 mg RTQID NEB 11/27/20 20:00 11/27/20 19:39 DC Budesonide (Pulmicort) 0.5 mg RTBID NEB 11/27/20 20:00 11/27/20 19:39 DC Albuterol Sulfate (Ventolin Hfa Inhaler) 1 puff PRN Q6HRS PRN INH SOA 11/27/20 19:45 12/06/20 20:07 Metformin HCl (Glucophage Xr) 500 mg BID PO 11/28/20 09:00 11/28/20 10:51 DC 11/28/20 09:06 Carvedilol (Coreg) 6.25 mg BID PO 11/28/20 09:00 11/28/20 10:51 DC 11/28/20 09:06 Carvedilol (Coreg) 6.25 mg 0800,1700 PO 11/28/20 17:00 12/08/20 17:00 Metformin HCl (Glucophage Xr) 500 mg 0800,1700 PO 11/28/20 17:00 12/08/20 17:06 Sertraline HCl (Zoloft) 50 mg DAILY PO 11/29/20 09:00 12/08/20 08:18 Divalproex Sodium (Depakote Er) 500 mg QHS PO 11/28/20 21:00 12/03/20 16:42 DC 12/02/20 20:12 Medroxyprogesterone Acetate (Provera) 5 mg DAILY PO 11/29/20 09:00 12/08/20 08:16 Warfarin Sodium (Coumadin Per Pharmacy) 1 each PRN DAILY PRN MC SEE COMMENTS 11/29/20 13:45 12/01/20 10:34 DC Calcium Carbonate/ Glycine (Tums) 500 mg PRN AFTMEALHC PRN PO 1ST CHOICE INDIGESTION 11/29/20 15:15 11/29/20 18:00 Pantoprazole Sodium (Protonix) 40 mg DAILYAC PO 11/30/20 06:00 11/30/20 06:15 DC Ropinirole HCl (Requip) 0.25 mg HS PO 11/29/20 21:00 12/08/20 20:16 Pantoprazole Sodium (Protonix) 40 mg DAILYWBKFT PO 11/30/20 08:00 12/08/20 08:16 Diclofenac Sodium (Voltaren) 2 jaswant QID TP 11/30/20 13:45 12/08/20 20:18 Nystatin (Nystop) 1 jaswant BID TP 12/01/20 21:00 12/07/20 14:01 DC 12/06/20 20:07 Divalproex Sodium (Depakote Er) 750 mg QHS PO 12/03/20 21:00 12/08/20 20:17 Nystatin (Nystop) 1 jaswant PRN BID PRN TP RASH 12/07/20 14:15 I have reviewed the current psychotropics carefully including drug interactions. Risk benefit ratio favors no change other than as noted in my dictated progress note. 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
[2020-12-09 06:36] VITALS: BP 102/64
[2020-12-09] MEDS: metFORMIN XR 500 MG TAB.ER.24H PO SCH ×2 (08:18→17:24)
[2020-12-09] MEDS: NICOTINE 14MG PATCH. TD SCH (08:18)
[2020-12-09] MEDS: FUROSEMIDE 20 MG TABLET PO SCH (08:18)
[2020-12-09] MEDS: PANTOPRAZOLE 40 MG TABLET. PO SCH (08:18)
[2020-12-09] MEDS: POTASSIUM CHLORIDE 20 MEQ TABLET.ER. PO SCH (08:18)
[2020-12-09] MEDS: TAMSULOSIN 0.4 MG CAP.ER.24H. PO SCH (08:18)
[2020-12-09] MEDS: CARVEDILOL 6.25 MG TABLET PO SCH ×2 (08:19→17:24)
[2020-12-09] MEDS: ATORVASTATIN CALCIUM 20 MG TABLET PO SCH (08:19)
[2020-12-09] MEDS: COLESEVELAM HCL 625 MG PO SCH ×2 (08:19→20:03)
[2020-12-09] MEDS: medroxyPROGESTERone 5 MG TABLET PO SCH (08:19)
[2020-12-09] MEDS: CETIRIZINE HCL 10 MG TABLET PO SCH (08:19)
[2020-12-09] MEDS: SERTRALINE 50 MG TABLET. PO SCH (08:19)
[2020-12-09] MEDS: MUPIROCIN 2% TOPICAL OINTMENT 22GM TUBE. TP SCH ×3 (08:20→20:03)
[2020-12-09] MEDS: DICLOFENAC SODIUM 1% TOPICAL GEL 100GM TUBE. TP SCH ×4 (08:20→20:03)
[2020-12-09] MEDS: HYDROcodone/APAP 5/325MG 1 TAB TABLET PO PRN ×2 (09:00→20:04)
--- NOTE | 2020-12-09 09:04 | PDOC ---
Exam Note: Hero Note: This note is a late entry for 12/08/2020 covers elements not covered in my initial note. Subjective: The patient was seen face to face in the evening of 12/08/2020 with Rylie FISHER, discussed and reviewed the chart. The patient slept 7-1/4 hours previous night. He has been pleasant, cooperative, appropriate with talk about inappropriate sexual comments or acts. Review of Systems: Ambulation impaired, in wheelchair. No CV, pulmonary, eye, ENT system symptoms on review. Mental Status Exam: The patient is reasonably oriented. Speech is coherent. Abstraction fair. Computation impaired. Language function intact. Mood and affect seems appropriate. No suicidal or homicidal ideation. Laboratory Data: Reviewed. Impression: Bipolar disorder mixed. Mild cognitive impairment. Impulse control disorder. Anxiety disorder. Plan: No change from initial note. Assessment: Vital Signs/I&O: Vital Signs Date Time Temp Pulse Resp B/P (MAP) Pulse Ox O2 Delivery O2 Flow Rate FiO2 12/09/20 09:00 96 12/09/20 08:19 79 102/64 12/09/20 06:36 98.0 18 12/07/20 11:55 Room Air I & O 12/08/20 12/08/20 12/09/20 14:59 22:59 06:59 Intake Total 960 ml 480 ml Balance 960 ml 480 ml Labs: Laboratory Tests Test 12/09/20 07:56 Glucose (Fingerstick) 120 mg/dL (70-99) H Current Medications: Meds: Laboratory Tests Test 12/09/20 07:56 Glucose (Fingerstick) 120 mg/dL Current Medications Medications (Trade) Dose Ordered Sig/Payton Route PRN Reason Start Time Stop Time Status Last Admin Dose Admin Acetaminophen (Tylenol) 650 mg PRN Q6HRS PRN PO MILD PAIN / TEMP > 100.3'F 11/27/20 16:00 Multi-Ingredient Ointment (Analgesic [place]) 1 jaswant PRN QID PRN TP MUSCLE PAIN 11/27/20 16:00 Al Hydroxide/Mg Hydroxide (Mylanta Plus Xs) 15 ml PRN AFTMEALHC PRN PO 2ND CHOICE DYSPEPSIA 11/27/20 16:00 11/29/20 15:10 Magnesium Hydroxide (Milk Of Magnesia) 2,400 mg PRN QHS PRN PO CONSTIPATION 11/27/20 16:00 Nicotine (Nicoderm Cq 14mg Patch) 1 patch DAILY TD 11/27/20 16:30 12/09/20 08:18 Albuterol Sulfate (Ventolin) 2.5 mg PRN Q4HRS PRN INH SHORTNESS OF BREATH 11/27/20 19:00 11/27/20 19:40 DC Bupropion HCl (Wellbutrin) 75 mg BID PO 11/27/20 21:00 11/28/20 13:37 DC 11/28/20 09:06 Carvedilol (Coreg) 6.25 mg BID PO 11/27/20 21:00 11/28/20 08:04 DC 11/27/20 21:30 Colesevelam HCl (Welchol) 1,250 mg BID PO 11/27/20 21:00 12/09/20 08:19 Diclofenac Sodium (Voltaren) 20 jaswant QID TP 11/27/20 21:00 11/30/20 13:35 DC 11/30/20 09:29 Furosemide (Lasix) 20 mg DAILY PO 11/28/20 09:00 12/09/20 08:18 Gabapentin (Neurontin) 600 mg QHS PO 11/27/20 21:00 12/08/20 20:16 Acetaminophen/ Hydrocodone Bitart (Lortab 5/325) 1 tab PRN Q6HRS PRN PO MOD-SEV PAIN 11/27/20 19:00 12/09/20 09:00 Metformin HCl (Glucophage Xr) 500 mg BID PO 11/27/20 21:00 11/28/20 08:01 DC Nystatin (Nystop) 15 jaswant BID TP 11/27/20 21:00 12/01/20 10:34 DC 12/01/20 09:22 Potassium Chloride (Klor-Con) 20 meq DAILY PO 11/28/20 09:00 12/09/20 08:18 Tamsulosin HCl (Flomax) 0.4 mg DAILY PO 11/28/20 09:00 12/09/20 08:18 Warfarin Sodium (Coumadin) 4 mg DAILY16 PO 11/28/20 16:00 12/01/20 10:34 DC 11/30/20 17:09 Atorvastatin Calcium (Lipitor) 40 mg DAILY PO 11/28/20 09:00 12/09/20 08:19 Non-Formulary Medication (Budesonide/ Formoterol Fumarate (Symbicort 160-4.5 Mcg Inhaler)) 2 puff BID IH 11/27/20 21:00 11/27/20 19:39 DC Cetirizine HCl (ZyrTEC) 10 mg DAILY PO 11/28/20 09:00 12/09/20 08:19 Mupirocin (Bactroban) 1 jaswant TID TP 11/27/20 21:00 12/09/20 08:20 Albuterol Sulfate (Ventolin) 2.5 mg RTQID NEB 11/27/20 20:00 11/27/20 19:39 DC Budesonide (Pulmicort) 0.5 mg RTBID NEB 11/27/20 20:00 11/27/20 19:39 DC Albuterol Sulfate (Ventolin Hfa Inhaler) 1 puff PRN Q6HRS PRN INH SOA 11/27/20 19:45 12/06/20 20:07 Metformin HCl (Glucophage Xr) 500 mg BID PO 11/28/20 09:00 11/28/20 10:51 DC 11/28/20 09:06 Carvedilol (Coreg) 6.25 mg BID PO 11/28/20 09:00 11/28/20 10:51 DC 11/28/20 09:06 Carvedilol (Coreg) 6.25 mg 0800,1700 PO 11/28/20 17:00 12/09/20 08:19 Metformin HCl (Glucophage Xr) 500 mg 0800,1700 PO 11/28/20 17:00 12/09/20 08:18 Sertraline HCl (Zoloft) 50 mg DAILY PO 11/29/20 09:00 12/09/20 08:19 Divalproex Sodium (Depakote Er) 500 mg QHS PO 11/28/20 21:00 12/03/20 16:42 DC 12/02/20 20:12 Medroxyprogesterone Acetate (Provera) 5 mg DAILY PO 11/29/20 09:00 12/09/20 08:19 Warfarin Sodium (Coumadin Per Pharmacy) 1 each PRN DAILY PRN MC SEE COMMENTS 11/29/20 13:45 12/01/20 10:34 DC Calcium Carbonate/ Glycine (Tums) 500 mg PRN AFTMEALHC PRN PO 1ST CHOICE INDIGESTION 11/29/20 15:15 11/29/20 18:00 Pantoprazole Sodium (Protonix) 40 mg DAILYAC PO 11/30/20 06:00 11/30/20 06:15 DC Ropinirole HCl (Requip) 0.25 mg HS PO 11/29/20 21:00 12/08/20 20:16 Pantoprazole Sodium (Protonix) 40 mg DAILYWBKFT PO 11/30/20 08:00 12/09/20 08:18 Diclofenac Sodium (Voltaren) 2 jaswant QID TP 11/30/20 13:45 12/09/20 08:20 Nystatin (Nystop) 1 jaswant BID TP 12/01/20 21:00 12/07/20 14:01 DC 12/06/20 20:07 Divalproex Sodium (Depakote Er) 750 mg QHS PO 12/03/20 21:00 12/08/20 20:17 Nystatin (Nystop) 1 jaswant PRN BID PRN TP RASH 12/07/20 14:15 I have reviewed the current psychotropics carefully including drug interactions. Risk benefit ratio favors no change other than as noted in my dictated progress note. 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
[2020-12-09 15:50] VITALS: BP 125/66
[2020-12-09] MEDS: GABAPENTIN 300 MG CAPSULE. PO SCH (20:03)
[2020-12-09] MEDS: rOPINIRole 0.25 MG TABLET. PO SCH (20:03)
[2020-12-09] MEDS: DIVALPROEX ER 250 MG TAB.ER.24H. PO SCH (20:03)
[2020-12-09] MEDS ORDERED: CALC500T31 PO (21:24)
[2020-12-09] MEDS ORDERED: ACET325T21 PO (21:24)
[2020-12-09] MEDS ORDERED: DIVA250T14 PO (21:25)
[2020-12-09] MEDS ORDERED: MAG-115 PO (21:26)
[2020-12-09] MEDS ORDERED: MAGN24003 PO (21:26)
[2020-12-09] MEDS ORDERED: METH57CR17 TP (21:26)
[2020-12-09] MEDS ORDERED: NICO1PAT25 TD (21:27)
[2020-12-09] MEDS ORDERED: PANT40TA6 PO (21:27)
[2020-12-09] MEDS ORDERED: SERT50TA PO (21:27)
[2020-12-09] MEDS ORDERED: MEDR5TAB2 PO (21:28)
[2020-12-09] MEDS ORDERED: ROPI0.254 PO (21:28)
[2020-12-09] MEDS ORDERED: CALC200T23 PO (21:32)
--- NOTE | 2020-12-09 22:46 | PDOC ---
Exam Note: Hero Note: Please also refer to the separate dictated note~for this date of service dictated separately.~Patient seen individually. Discussed the patient with Nursing staff reviewed the chart.~Reviewed interim history and current functioning. Reviewed vital signs,~Labs/ Radiology~and current medications noted below. Continue current treatment with the changes noted in the dictated addendum note Assessment: Vital Signs/I&O: Vital Signs Date Time Temp Pulse Resp B/P (MAP) Pulse Ox O2 Delivery O2 Flow Rate FiO2 12/09/20 17:24 79 125/66 12/09/20 15:50 97.6 18 94 Room Air I & O 12/08/20 12/08/20 12/09/20 13:59 21:59 05:59 Intake Total 960 ml 480 ml Balance 960 ml 480 ml Labs: Laboratory Tests Test 12/09/20 07:56 Glucose (Fingerstick) 120 mg/dL (70-99) H Current Medications: Meds: Laboratory Tests Test 12/09/20 07:56 Glucose (Fingerstick) 120 mg/dL Current Medications Medications (Trade) Dose Ordered Sig/Payton Route PRN Reason Start Time Stop Time Status Last Admin Dose Admin Acetaminophen (Tylenol) 650 mg PRN Q6HRS PRN PO MILD PAIN / TEMP > 100.3'F 11/27/20 16:00 Multi-Ingredient Ointment (Analgesic [place]) 1 jaswant PRN QID PRN TP MUSCLE PAIN 11/27/20 16:00 Al Hydroxide/Mg Hydroxide (Mylanta Plus Xs) 15 ml PRN AFTMEALHC PRN PO 2ND CHOICE DYSPEPSIA 11/27/20 16:00 11/29/20 15:10 Magnesium Hydroxide (Milk Of Magnesia) 2,400 mg PRN QHS PRN PO CONSTIPATION 11/27/20 16:00 Nicotine (Nicoderm Cq 14mg Patch) 1 patch DAILY TD 11/27/20 16:30 12/09/20 08:18 Albuterol Sulfate (Ventolin) 2.5 mg PRN Q4HRS PRN INH SHORTNESS OF BREATH 11/27/20 19:00 11/27/20 19:40 DC Bupropion HCl (Wellbutrin) 75 mg BID PO 11/27/20 21:00 11/28/20 13:37 DC 11/28/20 09:06 Carvedilol (Coreg) 6.25 mg BID PO 11/27/20 21:00 11/28/20 08:04 DC 11/27/20 21:30 Colesevelam HCl (Welchol) 1,250 mg BID PO 11/27/20 21:00 12/09/20 20:03 Diclofenac Sodium (Voltaren) 20 jaswant QID TP 11/27/20 21:00 11/30/20 13:35 DC 11/30/20 09:29 Furosemide (Lasix) 20 mg DAILY PO 11/28/20 09:00 12/09/20 08:18 Gabapentin (Neurontin) 600 mg QHS PO 11/27/20 21:00 12/09/20 20:03 Acetaminophen/ Hydrocodone Bitart (Lortab 5/325) 1 tab PRN Q6HRS PRN PO MOD-SEV PAIN 11/27/20 19:00 12/09/20 20:04 Metformin HCl (Glucophage Xr) 500 mg BID PO 11/27/20 21:00 11/28/20 08:01 DC Nystatin (Nystop) 15 jaswant BID TP 11/27/20 21:00 12/01/20 10:34 DC 12/01/20 09:22 Potassium Chloride (Klor-Con) 20 meq DAILY PO 11/28/20 09:00 12/09/20 08:18 Tamsulosin HCl (Flomax) 0.4 mg DAILY PO 11/28/20 09:00 12/09/20 08:18 Warfarin Sodium (Coumadin) 4 mg DAILY16 PO 11/28/20 16:00 12/01/20 10:34 DC 11/30/20 17:09 Atorvastatin Calcium (Lipitor) 40 mg DAILY PO 11/28/20 09:00 12/09/20 08:19 Non-Formulary Medication (Budesonide/ Formoterol Fumarate (Symbicort 160-4.5 Mcg Inhaler)) 2 puff BID IH 11/27/20 21:00 11/27/20 19:39 DC Cetirizine HCl (ZyrTEC) 10 mg DAILY PO 11/28/20 09:00 12/09/20 08:19 Mupirocin (Bactroban) 1 jaswant TID TP 11/27/20 21:00 12/09/20 20:03 Albuterol Sulfate (Ventolin) 2.5 mg RTQID NEB 11/27/20 20:00 11/27/20 19:39 DC Budesonide (Pulmicort) 0.5 mg RTBID NEB 11/27/20 20:00 11/27/20 19:39 DC Albuterol Sulfate (Ventolin Hfa Inhaler) 1 puff PRN Q6HRS PRN INH SOA 11/27/20 19:45 12/06/20 20:07 Metformin HCl (Glucophage Xr) 500 mg BID PO 11/28/20 09:00 11/28/20 10:51 DC 11/28/20 09:06 Carvedilol (Coreg) 6.25 mg BID PO 11/28/20 09:00 11/28/20 10:51 DC 11/28/20 09:06 Carvedilol (Coreg) 6.25 mg 0800,1700 PO 11/28/20 17:00 12/09/20 17:24 Metformin HCl (Glucophage Xr) 500 mg 0800,1700 PO 11/28/20 17:00 12/09/20 17:24 Sertraline HCl (Zoloft) 50 mg DAILY PO 11/29/20 09:00 12/09/20 08:19 Divalproex Sodium (Depakote Er) 500 mg QHS PO 11/28/20 21:00 12/03/20 16:42 DC 12/02/20 20:12 Medroxyprogesterone Acetate (Provera) 5 mg DAILY PO 11/29/20 09:00 12/09/20 08:19 Warfarin Sodium (Coumadin Per Pharmacy) 1 each PRN DAILY PRN MC SEE COMMENTS 11/29/20 13:45 12/01/20 10:34 DC Calcium Carbonate/ Glycine (Tums) 500 mg PRN AFTMEALHC PRN PO 1ST CHOICE INDIGESTION 11/29/20 15:15 11/29/20 18:00 Pantoprazole Sodium (Protonix) 40 mg DAILYAC PO 11/30/20 06:00 11/30/20 06:15 DC Ropinirole HCl (Requip) 0.25 mg HS PO 11/29/20 21:00 12/09/20 20:03 Pantoprazole Sodium (Protonix) 40 mg DAILYWBKFT PO 11/30/20 08:00 12/09/20 08:18 Diclofenac Sodium (Voltaren) 2 jaswant QID TP 11/30/20 13:45 12/09/20 20:03 Nystatin (Nystop) 1 jaswant BID TP 12/01/20 21:00 12/07/20 14:01 DC 12/06/20 20:07 Divalproex Sodium (Depakote Er) 750 mg QHS PO 12/03/20 21:00 12/09/20 20:03 Nystatin (Nystop) 1 jaswant PRN BID PRN TP RASH 12/07/20 14:15 I have reviewed the current psychotropics carefully including drug interactions. Risk benefit ratio favors no change other than as noted in my dictated progress note. Diagnosis: Problems: (1) Impulse control disorder, unspecified (2) Bipolar disorder, unspecified (3) Anxiety disorder, unspecified (4) Dementia, vascular, with delusions (5) Possible major vascular neurocognitive disorder DIANE MENDIETA MD Dec 09, 2020 22:46
[2020-12-10 06:38] VITALS: BP 122/73
[2020-12-10] MEDS: NICOTINE 14MG PATCH. TD SCH (08:37)
[2020-12-10] MEDS: POTASSIUM CHLORIDE 20 MEQ TABLET.ER. PO SCH (08:37)
[2020-12-10] MEDS: FUROSEMIDE 20 MG TABLET PO SCH (08:37)
[2020-12-10] MEDS: medroxyPROGESTERone 5 MG TABLET PO SCH (08:37)
[2020-12-10] MEDS: ATORVASTATIN CALCIUM 20 MG TABLET PO SCH (08:37)
[2020-12-10] MEDS: PANTOPRAZOLE 40 MG TABLET. PO SCH (08:37)
[2020-12-10] MEDS: metFORMIN XR 500 MG TAB.ER.24H PO SCH (08:37)
[2020-12-10 08:38] VITALS: BP 122/73
[2020-12-10] MEDS: MUPIROCIN 2% TOPICAL OINTMENT 22GM TUBE. TP SCH (08:38)
[2020-12-10] MEDS: CARVEDILOL 6.25 MG TABLET PO SCH (08:38)
[2020-12-10] MEDS: CETIRIZINE HCL 10 MG TABLET PO SCH (08:38)
[2020-12-10] MEDS: TAMSULOSIN 0.4 MG CAP.ER.24H. PO SCH (08:38)
[2020-12-10] MEDS: DICLOFENAC SODIUM 1% TOPICAL GEL 100GM TUBE. TP SCH (08:38)
[2020-12-10] MEDS: COLESEVELAM HCL 625 MG PO SCH (08:38)
[2020-12-10] MEDS: SERTRALINE 50 MG TABLET. PO SCH (08:38)
--- NOTE | 2020-12-10 22:04 | PDOC ---
Exam Note: Hero Note: Please also refer to the separate dictated note~for this date of service dictated separately.~Patient seen individually. Discussed the patient with Nursing staff reviewed the chart.~Reviewed interim history and current functioning. Reviewed vital signs,~Labs/ Radiology~and current medications noted below. Continue current treatment with the changes noted in the dictated addendum note Assessment: Vital Signs/I&O: Vital Signs Date Time Temp Pulse Resp B/P (MAP) Pulse Ox O2 Delivery O2 Flow Rate FiO2 12/10/20 08:38 67 122/73 12/10/20 06:38 98.1 18 97 12/09/20 15:50 Room Air I & O 12/09/20 12/09/20 12/10/20 13:59 21:59 05:59 Intake Total 700 ml 350 ml 120 ml Balance 700 ml 350 ml 120 ml Labs: Laboratory Tests Test 12/10/20 07:37 Glucose (Fingerstick) 109 mg/dL (70-99) H Current Medications: Meds: Laboratory Tests Test 12/10/20 07:37 Glucose (Fingerstick) 109 mg/dL Current Medications Medications (Trade) Dose Ordered Sig/Payton Route PRN Reason Start Time Stop Time Status Last Admin Dose Admin Acetaminophen (Tylenol) 650 mg PRN Q6HRS PRN PO MILD PAIN / TEMP > 100.3'F 11/27/20 16:00 12/10/20 10:43 DC Multi-Ingredient Ointment (Analgesic [place]) 1 jaswant PRN QID PRN TP MUSCLE PAIN 11/27/20 16:00 12/10/20 10:43 DC Al Hydroxide/Mg Hydroxide (Mylanta Plus Xs) 15 ml PRN AFTMEALHC PRN PO 2ND CHOICE DYSPEPSIA 11/27/20 16:00 12/10/20 10:43 DC 11/29/20 15:10 Magnesium Hydroxide (Milk Of Magnesia) 2,400 mg PRN QHS PRN PO CONSTIPATION 11/27/20 16:00 12/10/20 10:43 DC Nicotine (Nicoderm Cq 14mg Patch) 1 patch DAILY TD 11/27/20 16:30 12/10/20 10:43 DC 12/10/20 08:37 Albuterol Sulfate (Ventolin) 2.5 mg PRN Q4HRS PRN INH SHORTNESS OF BREATH 11/27/20 19:00 8/12/21 19:40 DC Bupropion HCl (Wellbutrin) 75 mg BID PO 11/27/20 21:00 11/28/20 13:37 DC 11/28/20 09:06 Carvedilol (Coreg) 6.25 mg BID PO 11/27/20 21:00 11/28/20 08:04 DC 11/27/20 21:30 Colesevelam HCl (Welchol) 1,250 mg BID PO 11/27/20 21:00 12/10/20 10:43 DC 12/10/20 08:38 Diclofenac Sodium (Voltaren) 20 jaswant QID TP 11/27/20 21:00 11/30/20 13:35 DC 11/30/20 09:29 Furosemide (Lasix) 20 mg DAILY PO 11/28/20 09:00 12/10/20 10:43 DC 12/10/20 08:37 Gabapentin (Neurontin) 600 mg QHS PO 11/27/20 21:00 12/10/20 10:43 DC 12/09/20 20:03 Acetaminophen/ Hydrocodone Bitart (Lortab 5/325) 1 tab PRN Q6HRS PRN PO MOD-SEV PAIN 11/27/20 19:00 12/10/20 10:43 DC 12/09/20 20:04 Metformin HCl (Glucophage Xr) 500 mg BID PO 11/27/20 21:00 11/28/20 08:01 DC Nystatin (Nystop) 15 jaswant BID TP 11/27/20 21:00 12/01/20 10:34 DC 12/01/20 09:22 Potassium Chloride (Klor-Con) 20 meq DAILY PO 11/28/20 09:00 12/10/20 10:43 DC 12/10/20 08:37 Tamsulosin HCl (Flomax) 0.4 mg DAILY PO 11/28/20 09:00 12/10/20 10:43 DC 12/10/20 08:38 Warfarin Sodium (Coumadin) 4 mg DAILY16 PO 11/28/20 16:00 12/01/20 10:34 DC 11/30/20 17:09 Atorvastatin Calcium (Lipitor) 40 mg DAILY PO 11/28/20 09:00 12/10/20 10:43 DC 12/10/20 08:37 Non-Formulary Medication (Budesonide/ Formoterol Fumarate (Symbicort 160-4.5 Mcg Inhaler)) 2 puff BID IH 11/27/20 21:00 11/27/20 19:39 DC Cetirizine HCl (ZyrTEC) 10 mg DAILY PO 11/28/20 09:00 12/10/20 10:43 DC 12/10/20 08:38 Mupirocin (Bactroban) 1 jaswant TID TP 11/27/20 21:00 12/10/20 10:43 DC 12/10/20 08:38 Albuterol Sulfate (Ventolin) 2.5 mg RTQID NEB 11/27/20 20:00 11/27/20 19:39 DC Budesonide (Pulmicort) 0.5 mg RTBID NEB 11/27/20 20:00 11/27/20 19:39 DC Albuterol Sulfate (Ventolin Hfa Inhaler) 1 puff PRN Q6HRS PRN INH SOA 11/27/20 19:45 12/10/20 10:43 DC 12/06/20 20:07 Metformin HCl (Glucophage Xr) 500 mg BID PO 11/28/20 09:00 11/28/20 10:51 DC 11/28/20 09:06 Carvedilol (Coreg) 6.25 mg BID PO 11/28/20 09:00 11/28/20 10:51 DC 11/28/20 09:06 Carvedilol (Coreg) 6.25 mg 0800,1700 PO 11/28/20 17:00 12/10/20 10:43 DC 12/10/20 08:38 Metformin HCl (Glucophage Xr) 500 mg 0800,1700 PO 11/28/20 17:00 12/10/20 10:43 DC 12/10/20 08:37 Sertraline HCl (Zoloft) 50 mg DAILY PO 11/29/20 09:00 12/10/20 10:43 DC 12/10/20 08:38 Divalproex Sodium (Depakote Er) 500 mg QHS PO 11/28/20 21:00 12/03/20 16:42 DC 12/02/20 20:12 Medroxyprogesterone Acetate (Provera) 5 mg DAILY PO 11/29/20 09:00 12/10/20 10:43 DC 12/10/20 08:37 Warfarin Sodium (Coumadin Per Pharmacy) 1 each PRN DAILY PRN MC SEE COMMENTS 11/29/20 13:45 12/01/20 10:34 DC Calcium Carbonate/ Glycine (Tums) 500 mg PRN AFTMEALHC PRN PO 1ST CHOICE INDIGESTION 11/29/20 15:15 12/10/20 10:43 DC 11/29/20 18:00 Pantoprazole Sodium (Protonix) 40 mg DAILYAC PO 11/30/20 06:00 11/30/20 06:15 DC Ropinirole HCl (Requip) 0.25 mg HS PO 11/29/20 21:00 12/10/20 10:43 DC 12/09/20 20:03 Pantoprazole Sodium (Protonix) 40 mg DAILYWBKFT PO 11/30/20 08:00 12/10/20 10:43 DC 12/10/20 08:37 Diclofenac Sodium (Voltaren) 2 jaswant QID TP 11/30/20 13:45 12/10/20 10:43 DC 12/10/20 08:38 Nystatin (Nystop) 1 jaswant BID TP 12/01/20 21:00 12/07/20 14:01 DC 12/06/20 20:07 Divalproex Sodium (Depakote Er) 750 mg QHS PO 12/03/20 21:00 12/10/20 10:43 DC 12/09/20 20:03 Nystatin (Nystop) 1 jaswant PRN BID PRN TP RASH 12/07/20 14:15 12/10/20 10:43 DC I have reviewed the current psychotropics carefully including drug interactions. Risk benefit ratio favors no change other than as noted in my dictated progress note. 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
--- NOTE | 2020-12-11 22:04 | PDOC ---
Exam Note: Hero Note: This note is a late entry for 12/09/2020 covers elements not covered in my initial note. Subjective: The patient was seen face to face in the evening of 12/09/2020 with Rylie FISHER, discussed and reviewed the chart. The patient slept 7-1/2 hours previous night. He has been pleasant. No inappropriate sexual behaviors noted. I met with him in the hallway. Review of Systems: Ambulation impaired, in wheelchair. No CV, pulmonary, eye, ENT system symptoms on review. Mental Status Exam: The patient is reasonably oriented. Speech is coherent. Abstraction fair. Computation impaired. Language function intact. Mood and affect is improved. No suicidal or homicidal ideation. Laboratory Data: Reviewed. Impression: Bipolar disorder mixed. Mild cognitive impairment. Impulse control disorder. Anxiety disorder. Plan: No change from initial note. The patient will be discharged to the senior care on 12/10. Assessment: Vital Signs/I&O: Vital Signs Date Time Temp Pulse Resp B/P (MAP) Pulse Ox O2 Delivery O2 Flow Rate FiO2 12/10/20 08:38 67 122/73 12/10/20 06:38 98.1 18 97 12/09/20 15:50 Room Air I & O 12/10/20 12/10/20 12/11/20 14:00 22:00 06:00 Intake Total 240 ml Balance 240 ml Current Medications: Meds: Current Medications Medications (Trade) Dose Ordered Sig/Payton Route PRN Reason Start Time Stop Time Status Last Admin Dose Admin Acetaminophen (Tylenol) 650 mg PRN Q6HRS PRN PO MILD PAIN / TEMP > 100.3'F 11/27/20 16:00 12/10/20 10:43 DC Multi-Ingredient Ointment (Analgesic [place]) 1 jaswant PRN QID PRN TP MUSCLE PAIN 11/27/20 16:00 12/10/20 10:43 DC Al Hydroxide/Mg Hydroxide (Mylanta Plus Xs) 15 ml PRN AFTMEALHC PRN PO 2ND CHOICE DYSPEPSIA 11/27/20 16:00 12/10/20 10:43 DC 11/29/20 15:10 Magnesium Hydroxide (Milk Of Magnesia) 2,400 mg PRN QHS PRN PO CONSTIPATION 11/27/20 16:00 12/10/20 10:43 DC Nicotine (Nicoderm Cq 14mg Patch) 1 patch DAILY TD 11/27/20 16:30 12/10/20 10:43 DC 12/10/20 08:37 Albuterol Sulfate (Ventolin) 2.5 mg PRN Q4HRS PRN INH SHORTNESS OF BREATH 11/27/20 19:00 11/27/20 19:40 DC Bupropion HCl (Wellbutrin) 75 mg BID PO 11/27/20 21:00 11/28/20 13:37 DC 11/28/20 09:06 Carvedilol (Coreg) 6.25 mg BID PO 11/27/20 21:00 11/28/20 08:04 DC 11/27/20 21:30 Colesevelam HCl (Welchol) 1,250 mg BID PO 11/27/20 21:00 12/10/20 10:43 DC 12/10/20 08:38 Diclofenac Sodium (Voltaren) 20 jaswant QID TP 11/27/20 21:00 11/30/20 13:35 DC 11/30/20 09:29 Furosemide (Lasix) 20 mg DAILY PO 11/28/20 09:00 12/10/20 10:43 DC 12/10/20 08:37 Gabapentin (Neurontin) 600 mg QHS PO 11/27/20 21:00 12/10/20 10:43 DC 12/09/20 20:03 Acetaminophen/ Hydrocodone Bitart (Lortab 5/325) 1 tab PRN Q6HRS PRN PO MOD-SEV PAIN 11/27/20 19:00 12/10/20 10:43 DC 12/09/20 20:04 Metformin HCl (Glucophage Xr) 500 mg BID PO 11/27/20 21:00 11/28/20 08:01 DC Nystatin (Nystop) 15 jaswant BID TP 11/27/20 21:00 12/01/20 10:34 DC 12/01/20 09:22 Potassium Chloride (Klor-Con) 20 meq DAILY PO 11/28/20 09:00 12/10/20 10:43 DC 12/10/20 08:37 Tamsulosin HCl (Flomax) 0.4 mg DAILY PO 11/28/20 09:00 12/10/20 10:43 DC 12/10/20 08:38 Warfarin Sodium (Coumadin) 4 mg DAILY16 PO 11/28/20 16:00 12/01/20 10:34 DC 11/30/20 17:09 Atorvastatin Calcium (Lipitor) 40 mg DAILY PO 11/28/20 09:00 12/10/20 10:43 DC 12/10/20 08:37 Non-Formulary Medication (Budesonide/ Formoterol Fumarate (Symbicort 160-4.5 Mcg Inhaler)) 2 puff BID IH 11/27/20 21:00 11/27/20 19:39 DC Cetirizine HCl (ZyrTEC) 10 mg DAILY PO 11/28/20 09:00 12/10/20 10:43 DC 12/10/20 08:38 Mupirocin (Bactroban) 1 jaswant TID TP 11/27/20 21:00 12/10/20 10:43 DC 12/10/20 08:38 Albuterol Sulfate (Ventolin) 2.5 mg RTQID NEB 11/27/20 20:00 11/27/20 19:39 DC Budesonide (Pulmicort) 0.5 mg RTBID NEB 11/27/20 20:00 11/27/20 19:39 DC Albuterol Sulfate (Ventolin Hfa Inhaler) 1 puff PRN Q6HRS PRN INH SOA 11/27/20 19:45 12/10/20 10:43 DC 12/06/20 20:07 Metformin HCl (Glucophage Xr) 500 mg BID PO 11/28/20 09:00 11/28/20 10:51 DC 11/28/20 09:06 Carvedilol (Coreg) 6.25 mg BID PO 11/28/20 09:00 11/28/20 10:51 DC 11/28/20 09:06 Carvedilol (Coreg) 6.25 mg 0800,1700 PO 11/28/20 17:00 12/10/20 10:43 DC 12/10/20 08:38 Metformin HCl (Glucophage Xr) 500 mg 0800,1700 PO 11/28/20 17:00 12/10/20 10:43 DC 12/10/20 08:37 Sertraline HCl (Zoloft) 50 mg DAILY PO 11/29/20 09:00 12/10/20 10:43 DC 12/10/20 08:38 Divalproex Sodium (Depakote Er) 500 mg QHS PO 11/28/20 21:00 12/03/20 16:42 DC 12/02/20 20:12 Medroxyprogesterone Acetate (Provera) 5 mg DAILY PO 11/29/20 09:00 12/10/20 10:43 DC 12/10/20 08:37 Warfarin Sodium (Coumadin Per Pharmacy) 1 each PRN DAILY PRN MC SEE COMMENTS 11/29/20 13:45 12/01/20 10:34 DC Calcium Carbonate/ Glycine (Tums) 500 mg PRN AFTMEALHC PRN PO 1ST CHOICE INDIGESTION 11/29/20 15:15 12/10/20 10:43 DC 11/29/20 18:00 Pantoprazole Sodium (Protonix) 40 mg DAILYAC PO 11/30/20 06:00 11/30/20 06:15 DC Ropinirole HCl (Requip) 0.25 mg HS PO 11/29/20 21:00 12/10/20 10:43 DC 12/09/20 20:03 Pantoprazole Sodium (Protonix) 40 mg DAILYWBKFT PO 11/30/20 08:00 12/10/20 10:43 DC 12/10/20 08:37 Diclofenac Sodium (Voltaren) 2 jaswant QID TP 11/30/20 13:45 12/10/20 10:43 DC 12/10/20 08:38 Nystatin (Nystop) 1 jaswant BID TP 12/01/20 21:00 12/07/20 14:01 DC 12/06/20 20:07 Divalproex Sodium (Depakote Er) 750 mg QHS PO 12/03/20 21:00 12/10/20 10:43 DC 12/09/20 20:03 Nystatin (Nystop) 1 jaswant PRN BID PRN TP RASH 12/07/20 14:15 12/10/20 10:43 DC I have reviewed the current psychotropics carefully including drug interactions. Risk benefit ratio favors no change other than as noted in my dictated progress note. 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
--- NOTE | 2020-12-11 22:33 | DS ---
DATE OF DISCHARGE: 12/10/2020 DISCHARGE SUMMARY/PSYCHIATRIC PROGRESS NOTE This is a late entry, date of service 12/10/2020, covers elements not covered in my initial note. REASON FOR ADMISSION: Please refer to the admission history for details. Briefly, the patient is an 80-year-old male who presented from home since he was felt inappropriate to go to a nursing facility on account of sexually inappropriate behaviors. He was being cared for at home by caregivers and was trying to kiss them all over. He is sexually inappropriate with in-home caregivers, touching caregivers. He is getting into pornographic material on the computer including people and animals. He was verbally abusive, verbalized suicidal thoughts, would sit on the porch at night, flashing the flashlight on and off, trying to get people to come over. Family revealed that he has had some of the sexually inappropriate behaviors for many years, but much worse since he is getting a little more forgetful recently. The patient had failed outpatient psychiatric interventions, resulting in this referral for inpatient psychiatric stabilization. SIGNIFICANT FINDINGS AND CLINICAL COURSE: Following admission, the patient was seen daily individually by myself from a psychiatric standpoint, medical followup per Dr. Sarabia/Dr. Francisco. The patient was reasonably oriented, though he did have short-term memory deficits and CT head showed some involutional changes and adjustments were made in his psychotropics. He seemed to respond to a combination of Provera 5 mg a day to reduce his sexual aggression, Depakote ER 750 mg at bedtime as a mood stabilizer, level was 68. Labs unremarkable, Zoloft 50 mg a day. He remained on Requip 0.25 mg at bedtime and gabapentin 600 mg at bedtime. REVIEW OF SYSTEMS: Prior to discharge, ambulation impaired in wheelchair. No CV, , pulmonary, eye system symptoms on review. MENTAL STATUS EXAMINATION: Reasonably oriented. Speech is coherent. Abstraction fair. Computation impaired. Language function intact. Attention span short. Mood and affect remain somewhat withdrawn, but improved. LABORATORY DATA: Reviewed. FINAL DIAGNOSES: Bipolar disorder, mixed with psychotic features, in partial remission, impulse control disorder, anxiety disorder, unspecified, mild cognitive impairment. Rest unchanged from admission. DISCHARGE MEDICATIONS: Please refer to the MRAD. DISCHARGE INSTRUCTIONS: Outpatient psychiatric and medical followup at the senior care. Time for discharge day management greater than 30 minutes. STEVEN/CHRISTIE DR: Ab TID: [id number]
== END 2020-12-10 10:15 | DRG 885 ==
LOC: GEROPSY 13:05
PROVIDERS: ADMIT Psychiatry & Neurology Psychiatry; ATTEND Psychiatry & Neurology Psychiatry
DX: F31.64 Bipolar disorder, current episode mixed, severe, with psychotic features (principal); F01.50 Vascular dementia, unspecified severity, without behavioral disturbance, psychotic disturbance, mood disturbance, and anxiety; F63.9 Impulse disorder, unspecified; E11.9 Type 2 diabetes mellitus without complications; E78.5 Hyperlipidemia, unspecified; F41.9 Anxiety disorder, unspecified; G47.00 Insomnia, unspecified; I10 Essential (primary) hypertension; J44.9 Chronic obstructive pulmonary disease, unspecified; N40.0 Benign prostatic hyperplasia without lower urinary tract symptoms; Z66 Do not resuscitate; M10.9 Gout, unspecified; M19.90 Unspecified osteoarthritis, unspecified site; Z20.822 Contact with and (suspected) exposure to COVID-19; I25.10 Atherosclerotic heart disease of native coronary artery without angina pectoris; I25.2 Old myocardial infarction; Z79.01 Long term (current) use of anticoagulants; Z79.899 Other long term (current) drug therapy; Z86.73 Personal history of transient ischemic attack (TIA), and cerebral infarction without residual deficits; Z86.79 Personal history of other diseases of the circulatory system; Z95.1 Presence of aortocoronary bypass graft
CPT/HCPCS: 36415; 80053; 80164; 82947; 85025; 85610; 99407; U0003; 97530